=== PATIENT | female | born 1950 | race Caucasian/White ===

== ENCOUNTER 2019-12-20 14:34 | Inpatient (IN) ==
[2019-12-20 14:53] LABS: Basophils # 0.1 K/mm3 (0-0.2); Eosinophils # 0.1 K/mm3 (0.0-0.4); Monocytes # 0.9 K/mm3 (0.1-1.0)
[2019-12-20 14:58] LABS: Basophils % 0.4 % (0.1-2.0); Eosinophils % 0.6 % (0.1-12.0); Lymphocytes # 6.2 K/mm3 (0.7-4.5); Lymphocytes % 30.9 % (10-50); Mean Corpuscular HGB Conc 24.9 g/dL (31.8-35.4); Mean Corpuscular Volume 60.2 fl (81-99); Mean Platelet Volume 9.3 fl (7.4-10.4); Monocytes % 4.6 % (1.7-9.3); Neutrophils # 12.7 K/mm3 (1.8-7.8); Neutrophils % 63.5 % (37.0-80.0); Platelet Count 716 K/mm3 (142-424); Red Blood Count 3.54 M/mm3 (4.20-5.40); Red Cell Distribution Width 18.6 % (11.5-17.5)
[2019-12-20 15:00] LABS: Hematocrit 21.3 % (37.0-47.0); Hemoglobin 5.3 g/dL (12.2-16.2)
[2019-12-20 15:02] LABS: ABG Base Excess -11.3 mmol/L (-2.4-2.3); ABG HCO3 12.2 mmhg (22.0-26.0); ABG Oxygen Saturation 94 % (90-100); ABG PH 7.48 mmol/L (7.35-7.45); ABG PO2 68.7 mmhg (80-100); ABG TCO2 12.7 mmhg (23-27)
[2019-12-20 15:05] LABS: Allen's Test Acceptable; Oxygen ROOM AIR %
[2019-12-20 15:07] LABS: ABG PCO2 16.7 mmhg (35.0-45.0)
[2019-12-20 15:07] LABS: Alanine Aminotransferase 13 U/L (12-78); Albumin/Globulin Ratio 0.7 (1.1-1.8); Alkaline Phosphatase 128 U/L (46-116); Anion Gap 23.7 mEq/L (5-15); Aspartate Amino Transferase 9 U/L (15-37); Bilirubin,Total 0.6 mg/dL (0.2-1.0); Blood Urea Nitrogen 20 mg/dL (7-18); Calcium 8.5 mg/dL (8.5-10.1); Carbon Dioxide 13 mmol/L (21.0-32.0); Chloride 101 mmol/L (98-107); Globulin 4.2 gm/dl (1.3-3.2); Glucose 181 mg/dL (74-106); Sodium 134 mmol/L (136-145); Total Protein,Serum 7.2 gm/dL (6.4-8.2)
[2019-12-20 15:14] LABS: Lymphocytes % 31 % (10-50); Monocytes % 4 % (2-9); Neutrophils % 65 % (42-76); Total Cells Counted 100
[2019-12-20 15:15] LABS: Anisocytosis 3+; Hypochromasia 3+; Nucleated Red Blood Cells 5
[2019-12-20 15:16] LABS: Ovalocytes 1+
--- NOTE | 2019-12-20 16:45 | Emergency Department Note ---
ED Disposition Clinical Impression: Anemia Qualifiers: Anemia type: unspecified type Qualified Code(s): D64.9 - Anemia, unspecified Disposition: Admitted As Inpatient Condition on Discharge: Good - Critical Care Critical Care Time: No Attestation: On 12/20/19, the high probability of a clinically significant, sudden or life threatening deterioration of the following system(s) required my full and direct attention, intervention and personal management. The time I documented below is in addition to time spent performing reported procedures but includes the following listed in this critical care notation. Medical Decision Making - Carlito Inquiry Pt receiving controlled substance: No Carlito was queried for this patient: No Vital Signs: 12/20/19 14:35 12/20/19 15:00 12/20/19 15:29 Temperature 98.1 F Temperature Source Oral Pulse Rate 102 H Pulse Rate [Right Radial] 123 H 107 H Respiratory Rate 28 H TAR Vitals Timing Blood Pressure Blood Pressure [Right Arm] 104/62 L 141/53 H Blood Pressure Mean Blood Pressure Mean [Right Arm] 76 82 Blood Pressure Source [Right Arm] Automatic Cuff Blood Pressure Position [Right Arm] Sitting 02 Sat by Pulse Oximetry 96 100 Oxygen Delivery Method Room Air Oxygen Flow Rate (LPM) 12/20/19 15:38 12/20/19 15:48 12/20/19 16:19 Temperature Temperature Source Pulse Rate Pulse Rate [Right Radial] 105 H 103 H 101 H Respiratory Rate TAR Vitals Timing Blood Pressure Blood Pressure [Right Arm] 131/53 L 134/51 L 109/63 L Blood Pressure Mean Blood Pressure Mean [Right Arm] 79 78 78 Blood Pressure Source [Right Arm] Automatic Cuff Automatic Cuff Blood Pressure Position [Right Arm] Sitting Sitting 02 Sat by Pulse Oximetry 100 100 100 Oxygen Delivery Method Nasal Cannula Nasal Cannula Nasal Cannula Oxygen Flow Rate (LPM) 2 2 2 12/20/19 16:56 12/20/19 16:57 12/20/19 17:02 Temperature 98.0 F 98.2 F 98.1 F Temperature Source Oral Pulse Rate 103 H 105 H 102 H Pulse Rate [Right Radial] Respiratory Rate 20 20 18 TAR Vitals Timing Pre-Blood Vitals Start Vitals 5 Minute Blood Pressure 126/57 L 125/33 L 107/51 L Blood Pressure [Right Arm] Blood Pressure Mean 80 63 69 Blood Pressure Mean [Right Arm] Blood Pressure Source [Right Arm] Blood Pressure Position [Right Arm] 02 Sat by Pulse Oximetry 100 98 99 Oxygen Delivery Method Oxygen Flow Rate (LPM) 12/20/19 17:07 12/20/19 17:12 12/20/19 17:27 Temperature 98.2 F 98.3 F 98.4 F Temperature Source Oral Pulse Rate 102 H 100 H 103 H Pulse Rate [Right Radial] Respiratory Rate 16 18 103 H TAR Vitals Timing 10 Minute 15 Minute 30 Minute Blood Pressure 134/58 L 148/60 H 139/41 L Blood Pressure [Right Arm] Blood Pressure Mean 83 89 73 Blood Pressure Mean [Right Arm] Blood Pressure Source [Right Arm] Blood Pressure Position [Right Arm] 02 Sat by Pulse Oximetry 98 100 97 Oxygen Delivery Method Oxygen Flow Rate (LPM) 12/20/19 17:42 12/20/19 17:57 12/20/19 18:29 Temperature 98 F 98.1 F Temperature Source Pulse Rate 100 H 100 H Pulse Rate [Right Radial] 101 H Respiratory Rate 18 20 TAR Vitals Timing 45 Minute 60 Minute Blood Pressure 140/55 L 108/51 L Blood Pressure [Right Arm] 139/67 Blood Pressure Mean 83 70 Blood Pressure Mean [Right Arm] 91 Blood Pressure Source [Right Arm] Automatic Cuff Blood Pressure Position [Right Arm] Sitting 02 Sat by Pulse Oximetry 100 98 98 Oxygen Delivery Method Nasal Cannula Oxygen Flow Rate (LPM) 2 12/20/19 18:55 12/20/19 19:00 12/20/19 19:21 Temperature 98.4 F 98.1 F 97.8 F Temperature Source Oral Pulse Rate 97 H 102 H Pulse Rate [Right Radial] 92 H Respiratory Rate 97 H 18 20 TAR Vitals Timing Completion Vitals Blood Pressure 141/82 H 126/46 L Blood Pressure [Right Arm] 159/69 H Blood Pressure Mean 101 Blood Pressure Mean [Right Arm] 99 Blood Pressure Source [Right Arm] Automatic Cuff Blood Pressure Position [Right Arm] Supine 02 Sat by Pulse Oximetry 98 98 Oxygen Delivery Method Room Air Oxygen Flow Rate (LPM) - Lab Data Lab Results 12/20/19 14:39: Specimen Source Left radial, O2 % Room air, ABG pH 7.48 H, ABG pCO2 16.7 L, ABG pO2 68.7 L, ABG HCO3 12.2 L, ABG Total CO2 12.7 L, ABG O2 Saturation 94, ABG Base Excess -11.3 L, Boni Test Acceptable 12/20/19 14:40: WBC 20.0 H, Corrected WBC 19.0 H, RBC 3.54 L, Hgb 5.3 L*, Hct 21.3 L*, MCV 60.2 L, MCH 15.0 L, MCHC 24.9 L, RDW 18.6 H, Plt Count 716 H, MPV 9.3, Neut % (Auto) 63.5, Lymph % (Auto) 30.9, [place] % (Auto) 4.6, Eos % (Auto) 0.6, Baso % (Auto) 0.4, Neut # (Auto) 12.7 H, Lymph # (Auto) 6.2 H, [place] # (Auto) 0.9, Eos # (Auto) 0.1, Baso # (Auto) 0.1, Total Counted 100, Neutrophils % (Manual) 65, Lymphocytes % (Manual) 31, Monocytes % (Manual) 4, Nucleated RBCs 5, Platelet Estimate Marked increase, Hypochromasia 3+, Anisocytosis 3+, Microcytosis 3+, Ovalocytes 1+ 12/20/19 14:40: Sodium 134 L, Potassium 3.7, Chloride 101, Carbon Dioxide 13 L, Anion Gap 23.7 H, BUN 20 H, Creatinine 1.80 H, Estimated Creat Clear 53, Estimated GFR 28 L, Est GFR ( Amer) 34 L, Glucose 181 H, Calcium 8.5, Total Bilirubin 0.6, AST 9 L, ALT 13, Alkaline Phosphatase 128 H, Troponin I < 0.02, Total Protein 7.2, Albumin 3.0 L, Globulin 4.2 H, Albumin/Globulin Ratio 0.7 L 12/20/19 14:40: Lactate 5.9 H 12/20/19 14:50: Influenza Type A Ag Negative, Influenza Type B Ag Negative 12/20/19 15:06: Blood Type O Positive, Antibody Screen Negative, Crossmatch ([facility]) See Detail 12/20/19 16:12: Blood Type Confirm O Positive Result diagrams: 12/20/19 19:55 12/20/19 14:40 Orders (Tests/Meds): ED MEDICATIONS Generic Name Dose Route Start Last Admin Trade Name Freq PRN Reason Stop Dose Admin Sodium Chloride 250 mls @ 25 mls/hr 12/20/19 15:00 12/20/19 16:57 Sod Chlor 0.9% 250ml Bag IV 12/21/19 14:59 25 mls/hr .Q10H TAVON Administration Discontinued Medications Generic Name Dose Route Start Last Admin Trade Name Brooke PRN Reason Stop Dose Admin Albuterol/Ipratropium 3 ml 12/20/19 14:41 12/20/19 14:59 Duoneb 3ml Neb IH 12/20/19 14:42 3 ml ONCE ONE Administration Sodium Chloride 1,000 mls @ 999 mls/hr 12/20/19 15:00 12/20/19 14:46 Sod Chlor 0.9% 1000ml Bag IV 12/20/19 16:00 999 mls/hr .Q1H1M TAVON Administration Methylprednisolone Sodium Succinate 125 mg 12/20/19 14:41 12/20/19 14:46 Solu-Medrol 125mg/2ml Vial IV 12/20/19 14:42 125 mg ONCE ONE Administration ORDERS Category Date Time Status Red Blood Cells Stat BBK 12/20/19 15:06 Results Type and Screen Stat BBK 12/20/19 15:06 Results Consult to Oncology [CONS] Routine Cons 12/20/19 17:04 Active Occult Blood,Stool Stat Lab 12/20/19 15:00 Ordered Blood Culture Stat Micro 12/20/19 14:40 Received Medical Decision Narrative: She presented to the emergency department complaining of shortness of breath. She was seen approximately 2 weeks ago diagnosed with pneumonia at that time. Treatment was started but she has not gotten any better since then. On arrival here she was very tachypneic, but was able to be talked down, there was some component of anxiety that was playing a part of this. However she was still tachycardic and mildly tachypneic at baseline just without any respiratory distress at this point. Lab work was obtained and showed a severe anemia with a hemoglobin of 5.3. It also happened to show a white count of 20 and an increased platelets in the 700s. She had no evidence of infection, chest x-ray was unremarkable, and she did not have any infectious symptoms. She also states that she does not have any times of a GI bleed, has not had any dark or tarry stools, and has not had any vomiting. Concerned of a potential myelodysplastic disorder of some sort. She is stable at this time, was given 1 unit of PRBCs and given 1 L of IV fluids with significant improvement in her symptoms. I discussed with Dr. Mortensen who will admit the patient onto his service. Lab work was obtained per his request and the patient was admitted to the medical surgi doris unit. General Adult HPI - General Chief complaint: Shortness of Breath/Dyspnea Stated complaint: shortness of breath Time Seen by Provider: 12/20/19 14:35 Mode of Arrival: Wheelchair Limitations: Physical Limitations Description of Symptoms (Recalled from ER Triage Doc. by RN): pt presents to ed with c/o shortness of breath. pt states she was diagnosed with pneumonia last week and she has worsened greatly today. - History of Present Illness HPI narrative: She presented to the emergency department with respiratory distress and tachypnea. She is been feeling worse over the last few weeks, was recently diagnosed with pneumonia but never got any better despite treatment for her pneumonia. She advises that she does not have any past medical history is not currently take any medications. - Related Data Home Medications Medication Instructions Recorded Confirmed No Known Home Medications 12/20/19 12/20/19 Allergies Allergy/AdvReac Type Severity Reaction Status Date / Time No Known Allergies Allergy Verified 12/20/19 14:39 [facility] History - Hepatitis A Screen Drug use history?: No High risk sexual behaviors?: No History of sexually transmitted infection?: No Currently employed?: No Childcare worker?: No Do you have indoor plumbing?: Yes Do you have electricity?: Yes Attestation statement:: This patient has been screened for Hepatitis A risk factors. Medical History: Denies:: Diabetes Mellitus Type 1, Diabetes Mellitus Type 2 Laterality Cases: Bilateral: Tonsillectomy - Social History Alcohol Intake: never Occupational Status: retired Household Members: spouse ROS Obtained: Yes All systems reviewed & no additional complaints Physical Exam - General General appearance: alert, in no apparent distress - Respiratory Respiratory exam: Present: normal lung sounds bilaterally - Cardiovascular Cardiovascular exam: Present: tachycardia - Neurological Exam Neurological exam: Present: alert, oriented X3 - Skin Skin exam: Present: pallor
--- NOTE | 2019-12-20 20:21 | Electrocardiograph Report ---
APPROVED REPORT Exam: Resting ECG HR:112 bpm ECG Measurements Heart Rate 112 AXES AL 134 P 42 QRSd 72 QRS 1 QT 330 T133 QTc 450 <Conclusion> Sinus tachycardia with occasional premature ventricular complexes Low voltage QRS ST & T wave abnormality, consider lateral ischemia Abnormal ECG Electronically signed by : Migue Mortensen, 12/20/2019 20:21:04
[2019-12-20 20:29] LABS: Hemoglobin 6.1 g/dL (12.2-16.2)
[2019-12-20 20:30] LABS: Hematocrit 23.2 % (37.0-47.0)
--- NOTE | 2019-12-21 07:17 | Pharmacy Consult Notes ---
[facility] VTE Monitoring - Patient Demographics Admission date: 12/20/19 Report Date: 12/21/19 Time: 07:17 Allergies/Adverse Reactions: Patient Allergies No Known Allergies Allergy (Verified 12/20/19 14:39) Height: 1.7 m Weight: 105.857 kg Patient Problems: Current Active Problems Anemia (Acute) - VTE Risk Labs: VTE Related Lab Results Hgb 6.1 g/dL (12.2-16.2) L* 12/20/19 19:55 Hct 23.2 % (37.0-47.0) L* 12/20/19 19:55 Plt Count 716 K/mm3 (142-424) H 12/20/19 14:40 BUN 20 mg/dL (7-18) H 12/20/19 14:40 Creatinine 1.80 mg/dL (0.55-1.02) H 12/20/19 14:40 Estimated Creat Clear 53 mL/min (50-200) 12/20/19 14:40 Was VTE Risk Assessment Performed: Yes VTE Score: 3 VTE Risk Level: Low Risk - Prophylaxis VTE Prophylaxis Ordered?: Yes Types of VTE Prophylaxis: TEDS Knee High Location of Applied Device: Bilateral Lower Extremeties
[2019-12-21 07:43] LABS: Eosinophils % 0.1 % (0.1-12.0); Hematocrit 25.8 % (37.0-47.0); Lymphocytes # 1.2 K/mm3 (0.7-4.5); Lymphocytes % 10.5 % (10-50); Mean Corpuscular HGB Conc 27.4 g/dL (31.8-35.4); Mean Platelet Volume 8.6 fl (7.4-10.4); Monocytes # 0.3 K/mm3 (0.1-1.0); Monocytes % 2.3 % (1.7-9.3); Neutrophils # 10.1 K/mm3 (1.8-7.8); Platelet Count 417 K/mm3 (142-424); Red Blood Count 3.98 M/mm3 (4.20-5.40); Red Cell Distribution Width 22.5 % (11.5-17.5); White Blood Count 11.6 K/mm3 (4.8-10.8)
[2019-12-21 07:47] LABS: Hemoglobin 7.1 g/dL (12.2-16.2)
--- NOTE | 2019-12-21 08:55 | History & Physical Report ---
*Admission Date: 12/20/19 *Chief complaint: Weakness/shortness of air *History of present illness: 69-year-old white female who has enjoyed very good functional status, and in fact has not seen a physician since Dr. Dodson in 2012. 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 This symptom has become progressively worse. She denies any kinds of fevers, night sweats or weight loss although she has been on an intentional weight loss program over the past year and a half and has lost about 40 pounds. She notes that she has been on a diet of salads and grilled chicken breast to achieve this weight loss. She reports that her shortness of air with concomitant diminished activity levels have caused her to gain some weight back. She denies any kind of vaginal bleeding, denies any kind of stigmata of GI bleeding, and specifically denies melena, bright red blood per rectum, vomiting of coffee grounds or blood. She denies belly pain. She denies joint pain, rashes or other issues. In the emergency department work-up was notable for increasing creatinine as well as significant anemia with hemoglobin of 5, leukocytosis and thrombocytosis. Admitted to hospital for further work-up. [facility] History I have reviewed the patient's past medical history: Yes Medical History: Denies:: Cancer, Diabetes Mellitus Type 1, Diabetes Mellitus Type 2, MRSA *Have you ever received a pneumonia vaccine?: No *Have you received a flu vaccine this season?: No ("Just didn't get, I've never had the flu.") Laterality Cases: Bilateral: Tonsillectomy Other Surgeries: Yes: Cholecystectomy, Hysterectomy-Total Amputation: No Fractures: No - *Social History Educational Level: Attended High School Smoking Status: Never smoker Alcohol Intake: never *Occupational Status:: retired Housing: house Household Members: spouse *Travel in the last 8 weeks: None Family Hx:: Cancer, Heart Attack Review of Systems - Review of Systems Review of systems:: pertinent systems reviewed and negative unless documented below Meds Home Medications Medication Instructions Recorded Confirmed Type No Known Home Medications 12/20/19 12/20/19 History Allergies Allergy/AdvReac Type Severity Reaction Status Date / Time No Known Allergies Allergy Verified 12/20/19 14:39 Exam Vital signs and Labs for Last 24 Hours: Temp Pulse Resp BP Pulse Ox 97.7 F 84 18 152/62 H 96 12/21/19 08:00 12/21/19 08:00 12/21/19 08:00 12/21/19 08:00 12/21/19 08:00 Laboratory Results - last 24 hr 12/20/19 14:39: Specimen Source Left radial, O2 % Room air, ABG pH 7.48 H, ABG pCO2 16.7 L, ABG pO2 68.7 L, ABG HCO3 12.2 L, ABG Total CO2 12.7 L, ABG O2 Saturation 94, ABG Base Excess -11.3 L, Boni Test Acceptable 12/20/19 14:40: WBC 20.0 H, Corrected WBC 19.0 H, RBC 3.54 L, Hgb 5.3 L*, Hct 21.3 L*, MCV 60.2 L, MCH 15.0 L, MCHC 24.9 L, RDW 18.6 H, Plt Count 716 H, MPV 9.3, Neut % (Auto) 63.5, Lymph % (Auto) 30.9, [place] % (Auto) 4.6, Eos % (Auto) 0.6, Baso % (Auto) 0.4, Neut # (Auto) 12.7 H, Lymph # (Auto) 6.2 H, [place] # (Auto) 0.9, Eos # (Auto) 0.1, Baso # (Auto) 0.1, Total Counted 100, Neutrophils % (Manual) 65, Lymphocytes % (Manual) 31, Monocytes % (Manual) 4, Nucleated RBCs 5, Platelet Estimate Marked increase, Hypochromasia 3+, Anisocytosis 3+, Microcytosis 3+, Ovalocytes 1+ 12/20/19 14:40: Sodium 134 L, Potassium 3.7, Chloride 101, Carbon Dioxide 13 L, Anion Gap 23.7 H, BUN 20 H, Creatinine 1.80 H, Estimated Creat Clear 53, Estimated GFR 28 L, Est GFR ( Amer) 34 L, Glucose 181 H, Calcium 8.5, Total Bilirubin 0.6, AST 9 L, ALT 13, Alkaline Phosphatase 128 H, Troponin I < 0.02, Total Protein 7.2, Albumin 3.0 L, Globulin 4.2 H, Albumin/Globulin Ratio 0.7 L 12/20/19 14:40: Lactate 5.9 H 12/20/19 14:50: Influenza Type A Ag Negative, Influenza Type B Ag Negative 12/20/19 15:06: Blood Type O Positive, Antibody Screen Negative, Crossmatch ([facility]) See Detail 12/20/19 16:12: Blood Type Confirm O Positive 12/20/19 18:30: Troponin I < 0.02 12/20/19 18:30: Ferritin 11 12/20/19 18:56: Lactate 1.2 12/20/19 19:55: Troponin I < 0.02 12/20/19 19:55: Hgb 6.1 L*, Hct 23.2 L* 12/21/19 07:34: WBC 11.6 H D, RBC 3.98 L, Hgb 7.1 L*, Hct 25.8 L, MCV 65.0 L, MCH 17.8 L, MCHC 27.4 L, RDW 22.5 H, Plt Count 417 D, MPV 8.6, Neut % (Auto) 87.0 H, Lymph % (Auto) 10.5, [place] % (Auto) 2.3, Eos % (Auto) 0.1, Baso % (Auto) 0.0 L, Neut # (Auto) 10.1 H, Lymph # (Auto) 1.2, [place] # (Auto) 0.3, Eos # (Auto) 0.0, Baso # (Auto) 0.0 I & O for Last 24 hours: Intake & Output 12/18/19 12/19/19 12/20/19 12/21/19 11:59 11:59 11:59 11:59 Intake Total 1540 / 1540 Balance 1540 / 1540 Weight 233 lb 6 oz Narrative: Patient is pleasant, talkative, alert, oriented x3. Pale but no other skin rashes. No hepatosplenomegaly but morbid obesity limits her exam findings. Lungs are clear, heart rate regular. Neurologically intact. Oropharynx clear. No mucous membrane involvement. No jaundice or scleral icterus. Neurologically she is intact. Assessment and Plan (1) Acute kidney injury Current visit: Yes Status: Acute Category: Medical Code(s): N17.9 - Acute kidney failure, unspecified Uncertain about chronicity of disease given the paucity of lab work since 2013. Recheck kidney function after low-dose IV fluids. Check erythropoietin levels given the possibility of kidney disease causing anemia. (2) Anemia Current visit: Yes Status: Acute Qualifiers: Anemia type: unspecified type Qualified Code(s): D64.9 - Anemia, unspecified Category: Medical Code(s): D64.9 - Anemia, unspecified Doubt blood loss. Most likely diagnosis seems to be some type of myelodysplastic syndrome versus nutritional deficiency, B12, iron levels and folate levels pending. I have asked pathology to review her admission CBC slide. She has had 2 units of packed cells her hemoglobin is above 7 and she feels much more comfortable. Hematology consultation today. Possible discharge after this consultation.
[2019-12-21 11:37] LABS: Lymphocytes % 11 % (10-50); Monocytes % 2 % (2-9); Neutrophils % 87 % (42-76); Nucleated Red Blood Cells 2; Total Cells Counted 100
[2019-12-21 11:38] LABS: Anisocytosis 1+; Ovalocytes 1+
[2019-12-21 11:39] LABS: Hypochromasia 1+
[2019-12-21 13:29] LABS: Albumin Level 2.7 gm/dL (3.4-5.0); Albumin/Globulin Ratio 0.7 (1.1-1.8); Anion Gap 17.6 mEq/L (5-15); Bilirubin,Total 0.6 mg/dL (0.2-1.0); Calcium 8.6 mg/dL (8.5-10.1); Globulin 3.8 gm/dl (1.3-3.2); Total Protein,Serum 6.5 gm/dL (6.4-8.2)
--- NOTE | 2019-12-21 14:22 | Discharge Summary ---
General - General Admission date:: 12/20/19 Discharge date: 12/21/19 HPI HPI: 69-year-old white female who has enjoyed very good functional status, and in fact has not seen a physician since Dr. Dodson in 2012. 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 This symptom has become progressively worse. She denies any kinds of fevers, night sweats or weight loss although she has been on an intentional weight loss program over the past year and a half and has lost about 40 pounds. She notes that she has been on a diet of salads and grilled chicken breast to achieve this weight loss. She reports that her shortness of air with concomitant diminished activity levels have caused her to gain some weight back. She denies any kind of vaginal bleeding, denies any kind of stigmata of GI bleeding, and specifically denies melena, bright red blood per rectum, vomiting of coffee grounds or blood. She denies belly pain. She denies joint pain, rashes or other issues. In the emergency department work-up was notable for increasing creatinine as well as significant anemia with hemoglobin of 5, leukocytosis and thrombocytosis. Admitted to hospital for further work-up. Hospital Course Hospital Course: Patient was admitted, received a total of 2 units of packed cells with hemoglobin rise up to 7.1. Creatinine improved with IV fluids to 1.2 and patient felt much better, still continue to feel somewhat tired. We sent off a host of lab work for nutritional causes of anemia as well as erythropoietin levels and instructions for a pathology review of her slide to evaluate for myelodysplastic issues. Patient feels well enough to be discharged and we have arranged short-term follow-up with hematology/oncology as a new patient for her worrisome anemia, leukocytosis and thrombocytosis tomorrow at 10 AM. 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 Objective Vital signs: Temp Pulse Resp BP Pulse Ox 98.1 F 92 H 18 125/53 L 96 12/21/19 12:00 12/21/19 12:00 12/21/19 12:00 12/21/19 12:12/21/19 12:00 Narrative: Patient is pleasant, talkative, pale but improving over admission. Heart rate regular, vital signs unremarkable. Abdomen soft, no edema, clubbing, cyanosis. Neurologic exam intact. See admission exam from this morning for details. Results Labs on day of discharge: Labs from last 24 hours 12/21/19 12/21/19 12/20/19 07:34 07:34 19:55 WBC 11.6 H D Corrected WBC RBC 3.98 L Hgb 7.1 L* 6.1 L* Hct 25.8 L 23.2 L* MCV 65.0 L MCH 17.8 L MCHC 27.4 L RDW 22.5 H Plt Count 417 D MPV 8.6 Neut % (Auto) 87.0 H Lymph % (Auto) 10.5 [place] % (Auto) 2.3 Eos % (Auto) 0.1 Baso % (Auto) 0.0 L Neut # (Auto) 10.1 H Lymph # (Auto) 1.2 [place] # (Auto) 0.3 Eos # (Auto) 0.0 Baso # (Auto) 0.0 Total Counted 100 Neutrophils % (Manual) 87 H Lymphocytes % (Manual) 11 Monocytes % (Manual) 2 Nucleated RBCs 2 Platelet Estimate Marked decrease Hypochromasia 1+ Poikilocytosis 1+ Anisocytosis 1+ Microcytosis 2+ Ovalocytes 1+ Specimen Source O2 % ABG pH ABG pCO2 ABG pO2 ABG HCO3 ABG Total CO2 ABG O2 Saturation ABG Base Excess Boni Test Sodium 135 L Potassium 4.6 D Chloride 105 Carbon Dioxide 17 L D Anion Gap 17.6 H BUN 22 H Creatinine 1.25 H D Estimated Creat Clear 71 Estimated GFR 42 L Est GFR ( Amer) 51 L D Glucose 174 H Lactate Calcium 8.6 Ferritin Total Bilirubin 0.6 AST 6 L D ALT 11 L Alkaline Phosphatase 109 Troponin I Total Protein 6.5 Albumin 2.7 L Globulin 3.8 H Albumin/Globulin Ratio 0.7 L Stool Occult Blood Influenza Type A Ag Influenza Type B Ag Blood Type Blood Type Confirm Antibody Screen Crossmatch ([facility]) 12/20/19 12/20/19 12/20/19 19:55 18:56 18:30 WBC Corrected WBC RBC Hgb Hct MCV MCH MCHC RDW Plt Count MPV Neut % (Auto) Lymph % (Auto) [place] % (Auto) Eos % (Auto) Baso % (Auto) Neut # (Auto) Lymph # (Auto) [place] # (Auto) Eos # (Auto) Baso # (Auto) Total Counted Neutrophils % (Manual) Lymphocytes % (Manual) Monocytes % (Manual) Nucleated RBCs Platelet Estimate Hypochromasia Poikilocytosis Anisocytosis Microcytosis Ovalocytes Specimen Source O2 % ABG pH ABG pCO2 ABG pO2 ABG HCO3 ABG Total CO2 ABG O2 Saturation ABG Base Excess Boni Test Sodium Potassium Chloride Carbon Dioxide Anion Gap BUN Creatinine Estimated Creat Clear Estimated GFR Est GFR ( Amer) Glucose Lactate 1.2 Calcium Ferritin 11 Total Bilirubin AST ALT Alkaline Phosphatase Troponin I < 0.02 Total Protein Albumin Globulin Albumin/Globulin Ratio Stool Occult Blood Influenza Type A Ag Influenza Type B Ag Blood Type Blood Type Confirm Antibody Screen Crossmatch ([facility]) 12/20/19 12/20/19 12/20/19 18:30 16:12 15:06 WBC Corrected WBC RBC Hgb Hct MCV MCH MCHC RDW Plt Count MPV Neut % (Auto) Lymph % (Auto) [place] % (Auto) Eos % (Auto) Baso % (Auto) Neut # (Auto) Lymph # (Auto) [place] # (Auto) Eos # (Auto) Baso # (Auto) Total Counted Neutrophils % (Manual) Lymphocytes % (Manual) Monocytes % (Manual) Nucleated RBCs Platelet Estimate Hypochromasia Poikilocytosis Anisocytosis Microcytosis Ovalocytes Specimen Source O2 % ABG pH ABG pCO2 ABG pO2 ABG HCO3 ABG Total CO2 ABG O2 Saturation ABG Base Excess Boni Test Sodium Potassium Chloride Carbon Dioxide Anion Gap BUN Creatinine Estimated Creat Clear Estimated GFR Est GFR ( Amer) Glucose Lactate Calcium Ferritin Total Bilirubin AST ALT Alkaline Phosphatase Troponin I < 0.02 Total Protein Albumin Globulin Albumin/Globulin Ratio Stool Occult Blood Influenza Type A Ag Influenza Type B Ag Blood Type O Positive Blood Type Confirm O Positive Antibody Screen Negative Crossmatch ([facility]) See Detail 12/20/19 12/20/19 12/20/19 14:50 14:40 14:40 WBC Corrected WBC RBC Hgb Hct MCV MCH MCHC RDW Plt Count MPV Neut % (Auto) Lymph % (Auto) [place] % (Auto) Eos % (Auto) Baso % (Auto) Neut # (Auto) Lymph # (Auto) [place] # (Auto) Eos # (Auto) Baso # (Auto) Total Counted Neutrophils % (Manual) Lymphocytes % (Manual) Monocytes % (Manual) Nucleated RBCs Platelet Estimate Hypochromasia Poikilocytosis Anisocytosis Microcytosis Ovalocytes Specimen Source O2 % ABG pH ABG pCO2 ABG pO2 ABG HCO3 ABG Total CO2 ABG O2 Saturation ABG Base Excess Boni Test Sodium 134 L Potassium 3.7 Chloride 101 Carbon Dioxide 13 L Anion Gap 23.7 H BUN 20 H Creatinine 1.80 H Estimated Creat Clear 53 Estimated GFR 28 L Est GFR ( Amer) 34 L Glucose 181 H Lactate 5.9 H Calcium 8.5 Ferritin Total Bilirubin 0.6 AST 9 L ALT 13 Alkaline Phosphatase 128 H Troponin I < 0.02 Total Protein 7.2 Albumin 3.0 L Globulin 4.2 H Albumin/Globulin Ratio 0.7 L Stool Occult Blood Influenza Type A Ag Negative Influenza Type B Ag Negative Blood Type Blood Type Confirm Antibody Screen Crossmatch ([facility]) 12/20/19 12/20/19 12/20/19 14:40 14:39 10:07 WBC 20.0 H Corrected WBC 19.0 H RBC 3.54 L Hgb 5.3 L* Hct 21.3 L* MCV 60.2 L MCH 15.0 L MCHC 24.9 L RDW 18.6 H Plt Count 716 H MPV 9.3 Neut % (Auto) 63.5 Lymph % (Auto) 30.9 [place] % (Auto) 4.6 Eos % (Auto) 0.6 Baso % (Auto) 0.4 Neut # (Auto) 12.7 H Lymph # (Auto) 6.2 H [place] # (Auto) 0.9 Eos # (Auto) 0.1 Baso # (Auto) 0.1 Total Counted 100 Neutrophils % (Manual) 65 Lymphocytes % (Manual) 31 Monocytes % (Manual) 4 Nucleated RBCs 5 Platelet Estimate Marked increase Hypochromasia 3+ Poikilocytosis Anisocytosis 3+ Microcytosis 3+ Ovalocytes 1+ Specimen Source Left radial O2 % Room air ABG pH 7.48 H ABG pCO2 16.7 L ABG pO2 68.7 L ABG HCO3 12.2 L ABG Total CO2 12.7 L ABG O2 Saturation 94 ABG Base Excess -11.3 L Boni Test Acceptable Sodium Potassium Chloride Carbon Dioxide Anion Gap BUN Creatinine Estimated Creat Clear Estimated GFR Est GFR ( Amer) Glucose Lactate Calcium Ferritin Total Bilirubin AST ALT Alkaline Phosphatase Troponin I Total Protein Albumin Globulin Albumin/Globulin Ratio Stool Occult Blood Negative Influenza Type A Ag Influenza Type B Ag Blood Type Blood Type Confirm Antibody Screen Crossmatch ([facility]) DS: Diagnosis - Discharge Diagnosis (1) Acute kidney injury Status: Resolved (2) Anemia Status: Acute Discharge Plan - Patient Discharge Instructions ACTIVITY: Continue current activity DIET: continue same diet Patient Instructions: Anemia - Follow up Plan Follow up with: Nilda New MD [Staff Physician] - 12/22/19 9:30 am Migue Mortensen MD [Primary Care Provider] - 12/24/19 9:30 am Disposition: Home, Self-Half-Way Medications: Home Medications Medication Instructions Recorded Confirmed Type No Known Home Medications 12/20/19 12/20/19 History Prescriptions/Medication Reconciliation: Continued No Known Home Medications - Problem Reconciliation Problems Reviewed?: Yes
[2019-12-22 15:52] LABS: Folate 3.6 ng/mL (>3.0)
== END 2019-12-21 14:49 | disposition home or self-care (01) | DRG 812 ==
LOC: ER 14:34 → 2ND 14:34 → OBSVTOIN 19:32
PROVIDERS: ADMIT Internal Medicine Adolescent Medicine; ATTEND Internal Medicine Adolescent Medicine
CPT/HCPCS: 36415; 36430; 71010; 71045; 80053; 82272; 82607; 82668; 82728; 82746; 82803; 83540; 83550; 83605; 84484; 85007; 85014; 85018; 85025; 86850; 87040; 87275; 87276; 93005; 96365; 96375; 99285; G0328; P9016

== ENCOUNTER 2019-12-22 10:57 | Outpatient (CLI) | payer MEDICARE, SELFPAY ==
[2019-12-22 11:34] LABS: Basophils % 0.1 % (0.1-2.0); Eosinophils % 0.1 % (0.1-12.0); Lymphocytes # 3.1 K/mm3 (0.7-4.5); Lymphocytes % 14.9 % (10-50); Mean Corpuscular HGB Conc 27.1 g/dL (31.8-35.4); Mean Corpuscular Hemoglobin 17.6 pg (27.0-31.2); Mean Corpuscular Volume 64.8 fl (81-99); Mean Platelet Volume 8.9 fl (7.4-10.4); Monocytes # 0.8 K/mm3 (0.1-1.0); Monocytes % 3.7 % (1.7-9.3); Neutrophils # 16.6 K/mm3 (1.8-7.8); Neutrophils % 81.1 % (37.0-80.0); Platelet Count 437 K/mm3 (142-424); Reticulocyte % (Auto) 2.7 % (0.9-3.2)
[2019-12-22 11:38] LABS: White Blood Count 20.4 K/mm3 (4.8-10.8)
[2019-12-22 11:39] LABS: Hematocrit 25.9 % (37.0-47.0)
[2019-12-22 11:40] LABS: Hemoglobin 7.1 g/dL (12.2-16.2)
[2019-12-22 11:41] LABS: MANUAL DIFFERENTIAL MANUAL DIFFERENTIAL (MANUAL DIFF)
[2019-12-22 11:47] LABS: Acanthocytes 3+; Anisocytosis 2+; Lymphocytes % 23 % (10-50); Macrocytosis 2+; Monocytes % 2 % (2-9); Neutrophils % 75 % (42-76); Platelet Estimate Normal; Poikilocytosis 3+; Stomatocytes 1+; Total Cells Counted 100
[2019-12-22 11:48] LABS: Hypochromasia 3+; Schistocytes 1+
[2019-12-22 12:20] LABS: Alanine Aminotransferase 14 U/L (12-78); Albumin Level 2.9 gm/dL (3.4-5.0); Albumin/Globulin Ratio 0.8 (1.1-1.8); Alkaline Phosphatase 105 U/L (46-116); Anion Gap 15.9 mEq/L (5-15); Aspartate Amino Transferase 11 U/L (15-37); Bilirubin,Total 0.5 mg/dL (0.2-1.0); Blood Urea Nitrogen 33 mg/dL (7-18); Calcium 8.8 mg/dL (8.5-10.1); Carbon Dioxide 19 mmol/L (21.0-32.0); Chloride 106 mmol/L (98-107); Creatinine,Serum 1.39 mg/dL (0.55-1.02); Estimated Glomerular Filt Rate 38 ml/min (>60); Ferritin 16 ng/mL (8-388); GFR (African American) 45 ML/MIN (>60); Globulin 3.8 gm/dl (1.3-3.2); Glucose 119 mg/dL (74-106); Lactate Dehydrogenase 177 U/L (82-234); Potassium 3.9 mmoL/L (3.5-5.1); Sodium 137 mmol/L (136-145); Total Protein,Serum 6.7 gm/dL (6.4-8.2)
--- NOTE | 2019-12-22 13:04 | PC.NURSE ---
1230 - PT BROUGHT OVER BY [facility] FROM LAB AFTER HAVING BLOOD DRAWN PER DR RUSH. WAITING ON HGB/HCT RESULTS TO MAKE SURE BLOOD TRANSFUSION NEEDED. HGB 7.1, HCT 25.9. BLOOD BANK NOTIFIED US THAT BLOOD FOR PT WAS NOT IN STOCK AT THIS FACILITY BUT WAS EN ROUTE FROM [facility] BLOOD FRAKES. INFORMED PT THAT MAY BE COUPLE HRS BEFORE BLOOD READY TO BE TRANSFUSED AND DECIDED TO RETURN TOMORROW FOR ACTUAL TRANSFUSION. DR RUSH NOTIFIED AND OKAY TO TRANSFUSE TOMORROW.
[2019-12-23 08:43] LABS: Iron 13 ug/dL (27-139); UIBC 307 ug/dL (118-369)
[2019-12-23 17:00] LABS: Haptoglobin 362 mg/dL (37-355); Iron Saturation 4 % (15-55)
== END 2019-12-22 12:45 | disposition home or self-care (01) ==
LOC: LAB 10:59 → INF 11:03
PROVIDERS: Visit Provider Internal Medicine Medical Oncology
DX: D64.9 Anemia, unspecified (principal)
CPT/HCPCS: 36415; 80053; 82728; 83010; 83540; 83550; 83615; 85007; 85025; 85044

== ENCOUNTER 2019-12-23 08:40 | Outpatient (CLI) | payer MEDICARE, SELFPAY ==
[2019-12-23] VITALS (20 sets, daily range): BP systolic 110–149; BP diastolic 57–84; PULSE 80–89; RESP 18–20; TEMP 35.9–36.6; O2SAT 100; BMI 34.7
--- NOTE | 2019-12-23 09:23 | PC.NURSE ---
0920 - STARTED TRANSFUSION AT 100 ML/HR AT THIS TIME.
--- NOTE | 2019-12-23 09:54 | PC.NURSE ---
0950 - INCREASED RATE TO 150 ML/HR AT THIS TIME.
--- NOTE | 2019-12-23 10:45 | PC.NURSE ---
1020 - INCREASED RATE TO 200 ML/HR AT THIS TIME.
--- NOTE | 2019-12-23 11:11 | PC.NURSE ---
INCREASED RATE TO 250 ML/HR AT 1050.
--- NOTE | 2019-12-23 11:52 | PC.NURSE ---
1140 - TRANSFUSION STARTED AT 100 ML/HR AT THIS TIME.
--- NOTE | 2019-12-23 12:15 | PC.NURSE ---
1210 - INCREASED RATE TO 150 ML/HR AT THIS TIME.
--- NOTE | 2019-12-23 12:43 | PC.NURSE ---
1240 - INCREASED RATE TO 200 ML/HR AT THIS TIME.
--- NOTE | 2019-12-23 13:30 | PC.NURSE ---
INCREASED RATE TO 250 ML/HR AT 1310.
[2019-12-23 14:43] LABS: Hematocrit 34.7 % (37.0-47.0)
--- NOTE | 2019-12-23 14:52 | PC.NURSE ---
1427 - BLOOD DRAWN FROM IV AT THIS TIME FOR 1 HR POST HGB/HCT THEN IV REMOVED.
== END 2019-12-23 14:40 | disposition home or self-care (01) ==
LOC: INF 08:46
PROVIDERS: Visit Provider Internal Medicine Medical Oncology
DX: D64.9 Anemia, unspecified (principal); D50.9 Iron deficiency anemia, unspecified; T45.4X5A Adverse effect of iron and its compounds, initial encounter
CPT/HCPCS: 36430; 85014; 85018; 96365; J1439; P9016

== ENCOUNTER → 2019-12-28 13:34 | Outpatient (CLI) | payer MEDICARE, SELFPAY ==
[2019-12-28 14:04] LABS: Hemoglobin 10.9 g/dL (12.2-16.2)
== END ==
PROVIDERS: Visit Provider Surgery
DX: D64.9 Anemia, unspecified (principal)
CPT/HCPCS: 36415; 85014; 85018

== ENCOUNTER 2019-12-30 13:49 | Outpatient (CLI) | payer MEDICARE, SELFPAY ==
[2019-12-30 14:15] VITALS: BP 161/68; PULSE 81; RESP 18
[2019-12-30 14:55] VITALS: BP 157/101; PULSE 90; RESP 18
== END 2019-12-30 14:55 | disposition home or self-care (01) ==
LOC: INF 15:27
PROVIDERS: Visit Provider Internal Medicine Medical Oncology
DX: D50.9 Iron deficiency anemia, unspecified (principal); T45.4X5A Adverse effect of iron and its compounds, initial encounter
CPT/HCPCS: 96365; J1439

== ENCOUNTER → 2020-01-02 10:59 | Outpatient (CLI) | payer MEDICARE, SELFPAY | LOC: RT 11:00 | PROVIDERS: PCP Internal Medicine Adolescent Medicine; Visit Provider Internal Medicine Adolescent Medicine | DX: R06.09 Other forms of dyspnea (principal) | CPT/HCPCS: 94060; 94640; 94726; 94729 ==

== ENCOUNTER → 2020-02-06 13:37 | Outpatient (CLI) | payer MEDICARE, SELFPAY ==
[2020-02-06 13:59] LABS: Blood Urea Nitrogen 17 mg/dl (7-17); Estimated Glomerular Filt Rate 55 ml/min (>60); GFR (African American) 67 ML/MIN (>60)
== END ==
PROVIDERS: PCP Internal Medicine Adolescent Medicine; Visit Provider Internal Medicine Adolescent Medicine
DX: Z01.818 Encounter for other preprocedural examination (principal)
CPT/HCPCS: 36415; 82565; 84520

== ENCOUNTER → 2020-02-08 09:46 | Outpatient (CLI) | payer MEDICARE, SELFPAY ==
--- NOTE | 2020-02-08 09:50 | CT_ITS ---
PROCEDURE: CT ABDOMEN WO CON CLINICAL HISTORY: WGT LOSS, ABD PAIN COMPARISON: No exams were available for comparison TECHNIQUE: Axial images obtained with sagittal and coronal reformats. All CT scans at the facility use one or more dose reduction, viz: automated exposure control, ma/kV adjustment per patient size (including targeted exams where dose is matched to indication, i.e. head), or iterative reconstruction technique. FINDINGS: There is a 5 mm subpleural nodule in the right middle lobe region 4 mm subpleural nodules present in the lingular area and 1 also in the left lower lobe anteriorly and 1 in the mid aspect of the left. There is a medium-sized hiatal hernia. Post cholecystectomy change. The liver, spleen, and right adrenal gland are unremarkable. Left adrenal gland is enlarged maintaining an adrenal form shape with a density of near 6 Hounsfield units which may be due to adenomatous involvement. The pancreas and kidneys have an unremarkable appearance. No renal or ureteral calculi. No intestinal obstruction or free air. Prior appendectomy. There are postsurgical changes of the anterior abdominal wall with a small umbilical hernia containing fat. There are scattered diverticula of the colon but no evidence of diverticulitis. There are degenerative changes of the lumbar spine. The pelvis is not included in the exam. IMPRESSION: 1. No acute abdominal or pelvic findings. 2. There are scattered subpleural nodular opacities in the lower lung zones as described above. These are nonspecific. Dedicated chest CT may provide further evaluation of the remaining chest in this patient with history of weight loss. 3. Colonic diverticulosis. No evidence of diverticulitis Dictated by: Boni Trujillo MD 02/09/2020 13:04 Electronically signed by Boni Trujillo MD in [place] 02/09/2020 13:04
== END ==
LOC: RAD 09:47
PROVIDERS: PCP Internal Medicine Adolescent Medicine; Visit Provider Internal Medicine Adolescent Medicine
DX: R10.84 Generalized abdominal pain (principal); R63.4 Abnormal weight loss
CPT/HCPCS: 74150

== ENCOUNTER → 2020-03-22 14:47 | Outpatient (CLI) | payer MEDICARE, OTHER, SELFPAY ==
[2020-03-22 15:14] LABS: Basophils # 0.1 K/mm3 (0-0.2); Eosinophils # 0.4 K/mm3 (0.0-0.4); Eosinophils % 4.3 % (0.1-12.0); Hematocrit 42.7 % (37.0-47.0); Hemoglobin 13.4 g/dL (12.2-16.2); Lymphocytes # 3.9 K/mm3 (0.7-4.5); Lymphocytes % 41.6 % (10-50); Mean Corpuscular HGB Conc 31.4 g/dL (31.8-35.4); Mean Corpuscular Hemoglobin 27.4 pg (27.0-31.2); Mean Corpuscular Volume 87.4 fl (81-99); Mean Platelet Volume 7.6 fl (7.4-10.4); Monocytes # 0.4 K/mm3 (0.1-1.0); Monocytes % 3.8 % (1.7-9.3); Neutrophils # 4.6 K/mm3 (1.8-7.8); Neutrophils % 49.2 % (37.0-80.0); Platelet Count 459 K/mm3 (142-424); Red Blood Count 4.89 M/mm3 (4.20-5.40); Red Cell Distribution Width 15.4 % (11.5-17.5); White Blood Count 9.4 K/mm3 (4.8-10.8)
[2020-03-22 18:06] LABS: Ferritin 20.1 ng/ml (11.1-264)
[2020-03-24 04:34] LABS: Iron 55 ug/dL (27-139); UIBC 208 ug/dL (118-369)
[2020-03-24 08:14] LABS: Iron Saturation 21 % (15-55)
== END ==
PROVIDERS: Visit Provider Internal Medicine Medical Oncology
DX: D50.9 Iron deficiency anemia, unspecified (principal)
CPT/HCPCS: 36415; 82728; 83540; 83550; 85025

== ENCOUNTER → 2020-03-26 08:08 | Outpatient (CLI) | payer MEDICARE, OTHER, SELFPAY ==
--- NOTE | 2020-03-26 08:16 | MM_ITS ---
PROCEDURE: MM DIG SCREENING MAMM BI W/CAD Digital Breast Tomosynthesis Included CLINICAL INDICATION: SCREENING There is a history of breast cancer in the patient's sister diagnosed at age 45. COMPARISON: No exams were available for comparison TECHNIQUE: Standard CC and MLO images and 3D Tomosynthesis was obtained. R2 CAD reviewed. FINDINGS: The breasts are composed primarily of fat with scattered fibroglandular densities seen throughout each breast. A couple of benign-appearing microcalcifications in each breast. There is faint arterial calcification in each breast there is a tiny benign-appearing nodular density central portion left breast. There are few benign-appearing microcalcifications in each breast. Ilir images were reviewed. There is no suspicious lesion and no suspicious microcalcifications. IMPRESSION: Fibrofatty parenchyma with no suspicious lesions seen BI-RAD Category: 2 Benign Finding(s) FOLLOW-UP: 1YR 1 Year Follow-up (A letter has been sent to the patient regarding results of the study.) Dictated by: Dr. Pantera Quintana MD 03/26/2020 13:[address] Pantera Quintana MD in [facility] 03/26/2020 13:49
--- NOTE | 2020-03-26 08:16 | XR_ITS ---
PROCEDURE: XR DEXA AXIAL SKELETON CLINICAL HISTORY: POST MENOPAUSAL COMPARISON: No exams were available for comparison FINDINGS: Right femoral neck density is 0.73 grams/centimeters sq with a T-score -1.1. Left femoral neck density is 0.794 grams/centimeters sq with a T-score of -0 point. L1-L4 density is 1.182 grams/centimeters sq with a T-score of 1.2 IMPRESSION: Osteopenia with moderate fracture risk. Treatment advised. Suggest follow-up exam in 2 years Dictated by: Boni Trujillo MD 03/26/2020 16:41 Electronically signed by Boni Trujillo MD in [facility] 03/26/2020 16:41
== END ==
PROVIDERS: PCP Internal Medicine Adolescent Medicine; Visit Provider Internal Medicine Adolescent Medicine
DX: Z12.31 Encounter for screening mammogram for malignant neoplasm of breast (principal); Z78.0 Asymptomatic menopausal state
CPT/HCPCS: 77063; 77067; 77080

== ENCOUNTER 2020-05-30 09:00 | Outpatient (CLI) | payer MEDICARE, OTHER, SELFPAY ==
[2020-05-30 10:10] LABS: PHA INR Fingerstick 2.8 (0.9-1.1)
== END 2020-05-30 10:12 | disposition home or self-care (01) ==
PROVIDERS: PCP Internal Medicine Adolescent Medicine; Visit Provider Internal Medicine Adolescent Medicine
DX: Z51.81 Encounter for therapeutic drug level monitoring (principal); Z79.01 Long term (current) use of anticoagulants
CPT/HCPCS: 85610; 99211; G0463

== ENCOUNTER 2020-06-13 09:28 | Outpatient (CLI) | payer MEDICARE, OTHER, SELFPAY ==
[2020-06-13 10:37] LABS: PHA INR Fingerstick 3.4 (0.9-1.1)
== END 2020-06-13 10:38 | disposition home or self-care (01) ==
LOC: ACC 09:29
PROVIDERS: PCP Internal Medicine Adolescent Medicine; Visit Provider Internal Medicine Adolescent Medicine
DX: Z51.81 Encounter for therapeutic drug level monitoring (principal); Z79.01 Long term (current) use of anticoagulants
CPT/HCPCS: 85610; 99211; G0463

== ENCOUNTER 2020-06-27 09:36 | Outpatient (CLI) | payer MEDICARE, OTHER, SELFPAY ==
[2020-06-27 12:06] LABS: Basophils # 0.1 K/mm3 (0-0.2); Basophils % 0.6 % (0.1-2.0); Eosinophils # 0.3 K/mm3 (0.0-0.4); Hemoglobin 14.2 g/dL (12.2-16.2); Lymphocytes # 3.9 K/mm3 (0.7-4.5); Lymphocytes % 38.9 % (10-50); Mean Corpuscular HGB Conc 33.8 g/dL (31.8-35.4); Mean Corpuscular Hemoglobin 29.4 pg (27.0-31.2); Mean Corpuscular Volume 87.1 fl (81-99); Mean Platelet Volume 7.6 fl (7.4-10.4); Monocytes # 0.4 K/mm3 (0.1-1.0); Monocytes % 3.6 % (1.7-9.3); Neutrophils # 5.4 K/mm3 (1.8-7.8); Neutrophils % 53.9 % (37.0-80.0); Platelet Count 410 K/mm3 (142-424); Red Blood Count 4.83 M/mm3 (4.20-5.40); Red Cell Distribution Width 15.1 % (11.5-17.5); White Blood Count 9.9 K/mm3 (4.8-10.8)
[2020-06-27 12:28] LABS: Alanine Aminotransferase 17 U/L (12-78); Albumin/Globulin Ratio 1.3 (1.1-1.8); Alkaline Phosphatase 168 U/L (38-126); Anion Gap 15.2 mEq/L (5-15); Aspartate Amino Transferase 20 U/L (14-36); Bilirubin,Total 0.3 mg/dl (0.2-1.3); Blood Urea Nitrogen 22 mg/dl (7-17); Calcium 9.3 mg/dl (8.4-10.2); Carbon Dioxide 25 mmol/L (22.0-30.0); Chloride 105 mmol/L (98-107); Chol/HDL Ratio 5.6 (1-3.5); Cholesterol 284 mg/dl (140-200); Estimated Glomerular Filt Rate 49 ml/min (>60); GFR (African American) 59 ML/MIN (>60); Globulin 3.1 g/dL (1.3-3.2); Glucose 151 mg/dl (74-100); HDL Cholesterol 51 mg/dl (40-60); Potassium 4.2 mmoL/L (3.5-5.1); Sodium 141 mmol/L (136-145); Total Protein,Serum 7.1 g/dl (6.3-8.2); Triglycerides 328 mg/dl (30-150); VLDL Cholesterol 66 mg/dL (0-40)
[2020-06-27 12:45] LABS: T4 (Thyroxine) 12.3 ug/dl (5.53-11.0)
[2020-06-27 12:58] LABS: Thyroid Stimulating Hormone 1.94 uIU/mL (0.465-4.68)
[2020-06-27 13:37] LABS: Direct LDL Cholesterol 181.07 mg/dL (100-129)
[2020-06-27 14:07] LABS: PHA INR Fingerstick 2.5 (0.9-1.1)
[2020-06-28 14:48] LABS: Hemoglobin A1C 7.1 % (4.0-6.0)
== END 2020-06-27 14:27 | disposition home or self-care (01) ==
PROVIDERS: Physician Assistant; PCP Emergency Medicine; Visit Provider Internal Medicine Adolescent Medicine
DX: I50.9 Heart failure, unspecified (principal); K92.2 Gastrointestinal hemorrhage, unspecified; N18.9 Chronic kidney disease, unspecified; R05 Cough; Z86.718 Personal history of other venous thrombosis and embolism; D64.9 Anemia, unspecified; Z86.2 Personal history of diseases of the blood and blood-forming organs and certain disorders involving the immune mechanism; Z79.01 Long term (current) use of anticoagulants
CPT/HCPCS: 36415; 80053; 80061; 83036; 84436; 84443; 85025; 85610; 99211; G0463

== ENCOUNTER 2020-07-25 09:27 | Outpatient (CLI) | payer MEDICARE, OTHER, SELFPAY ==
[2020-07-25 10:45] LABS: PHA INR Fingerstick 2.9 (0.9-1.1)
== END 2020-07-25 10:49 | disposition home or self-care (01) ==
LOC: ACC 09:29
PROVIDERS: PCP Internal Medicine Adolescent Medicine; Visit Provider Internal Medicine Adolescent Medicine
DX: Z79.01 Long term (current) use of anticoagulants (principal)
CPT/HCPCS: 85610; 99211; G0463

== ENCOUNTER 2020-08-27 09:21 | Outpatient (CLI) | payer MEDICARE, OTHER, SELFPAY | END 2020-08-27 11:23 | disposition home or self-care (01) | LOC: ACC 09:23 | PROVIDERS: PCP Internal Medicine Adolescent Medicine; Visit Provider Internal Medicine Adolescent Medicine | DX: Z51.81 Encounter for therapeutic drug level monitoring (principal); Z79.01 Long term (current) use of anticoagulants | CPT/HCPCS: 85610; 99211; G0463 ==

== ENCOUNTER 2020-09-17 09:27 | Outpatient (CLI) | payer MEDICARE, OTHER, SELFPAY ==
[2020-09-17 11:38] LABS: PHA INR Fingerstick 1.9 (0.9-1.1)
== END 2020-09-17 11:48 | disposition home or self-care (01) ==
LOC: ACC 09:28
PROVIDERS: PCP Emergency Medicine; Visit Provider Internal Medicine Adolescent Medicine
DX: Z51.81 Encounter for therapeutic drug level monitoring (principal); Z79.01 Long term (current) use of anticoagulants
CPT/HCPCS: 85610; 99211; G0463

== ENCOUNTER 2020-10-15 09:21 | Outpatient (CLI) | payer MEDICARE, OTHER, SELFPAY | END 2020-10-15 13:27 | disposition home or self-care (01) | LOC: ACC 09:23 | PROVIDERS: PCP Physician Assistant; Visit Provider Internal Medicine Adolescent Medicine | DX: Z51.81 Encounter for therapeutic drug level monitoring (principal); Z79.01 Long term (current) use of anticoagulants | CPT/HCPCS: 85610; 99211; G0463 ==

== ENCOUNTER 2020-11-12 09:27 | Outpatient (CLI) | payer MEDICARE, OTHER, SELFPAY | END 2020-11-12 13:54 | disposition home or self-care (01) | PROVIDERS: PCP Internal Medicine Adolescent Medicine; Visit Provider Physician Assistant | DX: Z51.81 Encounter for therapeutic drug level monitoring (principal); Z79.01 Long term (current) use of anticoagulants | CPT/HCPCS: 85610; 99211; G0463 ==

== ENCOUNTER 2020-12-24 09:30 | Outpatient (CLI) | payer MEDICARE, SELFPAY ==
[2020-12-24 12:24] LABS: PHA INR Fingerstick 2.3 (0.9-1.1)
== END 2020-12-24 14:41 | disposition home or self-care (01) ==
PROVIDERS: PCP Physician Assistant; Visit Provider Physician Assistant
DX: Z51.81 Encounter for therapeutic drug level monitoring (principal); Z79.01 Long term (current) use of anticoagulants
CPT/HCPCS: 85610; 99211; G0463

== ENCOUNTER → 2021-01-29 13:37 | Outpatient (CLI) | payer MEDICARE, SELFPAY ==
[2021-01-29 13:50] LABS: Basophils % 0.4 % (0.1-2.0); Eosinophils # 0.4 K/mm3 (0.0-0.4); Eosinophils % 4.3 % (0.1-12.0); Hematocrit 40.5 % (37.0-47.0); Lymphocytes # 2.5 K/mm3 (0.7-4.5); Lymphocytes % 26.5 % (10-50); Mean Corpuscular HGB Conc 32.2 g/dL (31.8-35.4); Mean Corpuscular Hemoglobin 28.5 pg (27.0-31.2); Mean Corpuscular Volume 88.4 fl (81-99); Mean Platelet Volume 7.9 fl (7.4-10.4); Monocytes # 0.4 K/mm3 (0.1-1.0); Monocytes % 4.3 % (1.7-9.3); Neutrophils % 64.4 % (37.0-80.0); Platelet Count 418 K/mm3 (142-424); Red Blood Count 4.57 M/mm3 (4.20-5.40); Red Cell Distribution Width 14.2 % (11.5-17.5); White Blood Count 9.3 K/mm3 (4.8-10.8)
[2021-01-29 13:51] LABS: Chloride 109 mmol/L (98-107); Potassium 5.1 mmoL/L (3.5-5.1); Sodium 140 mmol/L (136-145)
[2021-01-29 13:53] LABS: Alanine Aminotransferase 17 U/L (12-78); Albumin/Globulin Ratio 1.3 (1.1-1.8); Alkaline Phosphatase 128 U/L (38-126); Anion Gap 13.1 mEq/L (5-15); Aspartate Amino Transferase 22 U/L (14-36); Bilirubin,Total 0.4 mg/dl (0.2-1.3); Blood Urea Nitrogen 28 mg/dl (7-17); Carbon Dioxide 23 mmol/L (22.0-30.0); Estimated Glomerular Filt Rate 44 ml/min (>60); GFR (African American) 54 ML/MIN (>60); Globulin 3.2 g/dL (1.3-3.2); Total Protein,Serum 7.2 g/dl (6.3-8.2)
[2021-01-29 13:54] LABS: Calcium 9.5 mg/dl (8.4-10.2); Chol/HDL Ratio 4.1 (1-3.5); Cholesterol 226 mg/dl (140-200); Glucose 146 mg/dl (74-100); HDL Cholesterol 55 mg/dl (40-60); Triglycerides 222 mg/dl (30-150); VLDL Cholesterol 44 mg/dL (0-40)
[2021-01-29 13:56] LABS: Hemoglobin A1C 7.4 % (4.0-6.0)
[2021-01-29 14:10] LABS: Free T4 (Free Thyroxine) 1.29 ng/dl (0.78-2.19)
[2021-01-29 14:24] LABS: Thyroid Stimulating Hormone 2.02 uIU/mL (0.465-4.68)
== END ==
PROVIDERS: Visit Provider Physician Assistant
DX: D64.9 Anemia, unspecified (principal); E11.9 Type 2 diabetes mellitus without complications; I50.9 Heart failure, unspecified; N18.9 Chronic kidney disease, unspecified
CPT/HCPCS: 80053; 80061; 82043; 83036; 84439; 84443; 85025

== ENCOUNTER 2021-02-04 09:23 | Outpatient (CLI) | payer MEDICARE, SELFPAY ==
[2021-02-04 14:17] LABS: PHA INR Fingerstick 2.2 (0.9-1.1)
== END 2021-02-04 14:20 | disposition home or self-care (01) ==
PROVIDERS: PCP Emergency Medicine; Visit Provider Physician Assistant
DX: Z51.81 Encounter for therapeutic drug level monitoring (principal); Z79.01 Long term (current) use of anticoagulants
CPT/HCPCS: 85610; 99211; G0463

== ENCOUNTER 2021-02-19 11:36 | Outpatient (CLI) | payer MEDICARE, SELFPAY | END 2021-02-19 12:23 | disposition home or self-care (01) | LOC: ACC 11:38 | PROVIDERS: PCP Emergency Medicine; Visit Provider Physician Assistant | DX: Z51.81 Encounter for therapeutic drug level monitoring (principal); Z79.01 Long term (current) use of anticoagulants | CPT/HCPCS: 85610; 99211; G0463 ==

== ENCOUNTER 2021-02-22 12:56 | Outpatient (CLI) | payer MEDICARE, SELFPAY ==
[2021-02-22 14:09] LABS: PHA INR Fingerstick 2.1 (0.9-1.1)
== END 2021-02-22 14:12 | disposition home or self-care (01) ==
LOC: ACC 12:57
PROVIDERS: PCP Emergency Medicine; Visit Provider Physician Assistant
DX: Z51.81 Encounter for therapeutic drug level monitoring (principal); Z79.01 Long term (current) use of anticoagulants
CPT/HCPCS: 85610; 99211; G0463

== ENCOUNTER → 2021-02-25 08:32 | Outpatient (CLI) | payer MEDICARE, SELFPAY ==
[2021-02-25 09:52] LABS: Coronavirus 19 IgG Antibody Negative (Negative); Coronavirus 19 IgM Antibody Negative (Negative)
== END ==
PROVIDERS: Visit Provider Ophthalmology
DX: Z01.812 Encounter for preprocedural laboratory examination (principal); Z11.52 Encounter for screening for COVID-19; H25.12 Age-related nuclear cataract, left eye
CPT/HCPCS: 36415; 86328

== ENCOUNTER 2021-02-26 06:43 | Day surgery (SDC) | payer MEDICARE, SELFPAY ==
[2021-02-19 14:00] VITALS: BMI 36.1
[2021-02-26 07:11] VITALS: BP 131/69; PULSE 86; RESP 18; TEMP 36.4; O2SAT 94
[2021-02-26 07:28] LABS: POC Glucose,Bedside 148 (70-110)
[2021-02-26 08:27] VITALS: BP 142/72; PULSE 74; RESP 16; O2SAT 95
[2021-02-26 08:32] VITALS: BP 150/67; PULSE 74; RESP 16; O2SAT 98
[2021-02-26 08:37] VITALS: BP 136/67; PULSE 74; RESP 16; O2SAT 100
[2021-02-26 08:42] VITALS: BP 135/67; PULSE 71; RESP 16; O2SAT 100
[2021-02-26 08:45] VITALS: BP 131/73; PULSE 77; RESP 18; TEMP 36.4; O2SAT 99
== END 2021-02-26 08:57 | disposition home or self-care (01) ==
LOC: OR 06:44
PROVIDERS: PCP Emergency Medicine; Visit Provider Ophthalmology
DX: H26.9 Unspecified cataract (principal); E11.9 Type 2 diabetes mellitus without complications; Z90.49 Acquired absence of other specified parts of digestive tract; Z90.710 Acquired absence of both cervix and uterus; Z79.84 Long term (current) use of oral hypoglycemic drugs; Z79.82 Long term (current) use of aspirin; Z79.01 Long term (current) use of anticoagulants; Z79.899 Other long term (current) drug therapy; N18.9 Chronic kidney disease, unspecified; I50.9 Heart failure, unspecified
CPT/HCPCS: 66984; 82962; V2632

== ENCOUNTER 2021-03-19 11:08 | Outpatient (CLI) | payer MEDICARE, SELFPAY ==
[2021-03-19 12:02] LABS: PHA INR Fingerstick 2.4 (0.9-1.1)
== END 2021-03-19 12:03 | disposition home or self-care (01) ==
LOC: ACC 11:08
PROVIDERS: PCP Physician Assistant; Visit Provider Physician Assistant
DX: Z79.01 Long term (current) use of anticoagulants (principal)
CPT/HCPCS: 85610; 99211; G0463

== ENCOUNTER → 2021-03-23 09:05 | Outpatient (CLI) | payer MEDICARE, SELFPAY | PROVIDERS: Visit Provider Ophthalmology | DX: Z01.812 Encounter for preprocedural laboratory examination (principal); Z20.822 Contact with and (suspected) exposure to COVID-19; H25.11 Age-related nuclear cataract, right eye | CPT/HCPCS: U0003 ==

== ENCOUNTER 2021-03-25 11:32 | Outpatient (CLI) | payer MEDICARE, SELFPAY ==
[2021-03-25 12:02] LABS: PHA INR Fingerstick 2.1 (0.9-1.1)
== END 2021-03-25 12:03 | disposition home or self-care (01) ==
LOC: ACC 11:33
PROVIDERS: PCP Physician Assistant; Visit Provider Physician Assistant
DX: Z51.81 Encounter for therapeutic drug level monitoring (principal); Z79.01 Long term (current) use of anticoagulants
CPT/HCPCS: 85610; 99211; G0463

== ENCOUNTER 2021-03-26 09:13 | Day surgery (SDC) | payer MEDICARE, SELFPAY ==
[2021-03-20 12:56] VITALS: BMI 35.9
[2021-03-26 09:34] VITALS: BP 142/68; PULSE 84; RESP 20; TEMP 36.1; O2SAT 95
[2021-03-26 09:49] LABS: POC Glucose,Bedside 141 (70-110)
[2021-03-26 11:13] VITALS: BP 144/77; PULSE 81; RESP 16; O2SAT 97
[2021-03-26 11:18] VITALS: BP 142/69; PULSE 81; RESP 16; O2SAT 97
[2021-03-26 11:23] VITALS: BP 141/69; PULSE 81; RESP 16; O2SAT 97
[2021-03-26 11:28] VITALS: BP 134/66; PULSE 85; RESP 16; O2SAT 100
[2021-03-26 11:31] VITALS: BP 146/87; PULSE 79; RESP 16; TEMP 36.3; O2SAT 98
== END 2021-03-26 11:37 | disposition home or self-care (01) ==
LOC: OR 09:14
PROVIDERS: PCP Physician Assistant; Visit Provider Ophthalmology
DX: H25.813 Combined forms of age-related cataract, bilateral (principal); E11.9 Type 2 diabetes mellitus without complications; Z79.84 Long term (current) use of oral hypoglycemic drugs; Z90.49 Acquired absence of other specified parts of digestive tract; Z90.710 Acquired absence of both cervix and uterus; Z79.01 Long term (current) use of anticoagulants; Z79.82 Long term (current) use of aspirin; Z79.899 Other long term (current) drug therapy; I11.0 Hypertensive heart disease with heart failure; I50.9 Heart failure, unspecified; M85.80 Other specified disorders of bone density and structure, unspecified site; N18.9 Chronic kidney disease, unspecified
CPT/HCPCS: 66984; 82962; V2632

== ENCOUNTER → 2021-04-02 07:34 | Outpatient (CLI) | payer MEDICARE, SELFPAY ==
--- NOTE | 2021-04-02 07:35 | MM_ITS ---
PROCEDURE INFORMATION: Exam: MG Screening 3D Mammography Exam date and time: 04/02/2021 7:35 AM Age: 70 years old Clinical indication: Encounter for screening mammogram for malignant neoplasm of breast; Additional info: Breast cancer screening TECHNIQUE: Imaging protocol: Screening tomosynthesis and 2D mammography including computer-aided detection (CAD) when performed. COMPARISON: MG MM DIG SCREENING MAMM BI W/CAD 03/26/2020 8:41 AM FINDINGS: MAMMOGRAPHY: Breast composition: There are scattered areas of fibroglandular density. Mass: No new suspicious masses. Architectural distortion: No suspicious distortion. Calcifications: No suspicious calcifications. Asymmetric density: None. Skin thickening: None. Axillary adenopathy: None. IMPRESSION: No mammographic evidence of malignancy. Annual screening is recommended unless otherwise clinically indicated. ASSESSMENT: BI-RADS Category 1: Negative
== END ==
PROVIDERS: PCP Physician Assistant; Visit Provider Physician Assistant
DX: Z12.31 Encounter for screening mammogram for malignant neoplasm of breast (principal)
CPT/HCPCS: 77063; 77067

== ENCOUNTER 2021-05-06 11:21 | Outpatient (CLI) | payer MEDICARE, SELFPAY ==
[2021-05-06 12:01] LABS: PHA INR Fingerstick 2.6 (0.9-1.1)
== END 2021-05-06 12:03 | disposition home or self-care (01) ==
LOC: ACC 11:23
PROVIDERS: PCP Emergency Medicine; Visit Provider Physician Assistant
DX: Z51.81 Encounter for therapeutic drug level monitoring (principal); Z79.01 Long term (current) use of anticoagulants
CPT/HCPCS: 85610; 99211; G0463

== ENCOUNTER 2021-06-19 11:45 | Outpatient (CLI) | payer MEDICARE, SELFPAY ==
[2021-06-19 15:27] LABS: PHA INR Fingerstick 2.6 (0.9-1.1)
== END 2021-06-19 15:32 | disposition home or self-care (01) ==
LOC: ACC 11:47
PROVIDERS: PCP Emergency Medicine; Visit Provider Physician Assistant
DX: Z51.81 Encounter for therapeutic drug level monitoring (principal); Z79.01 Long term (current) use of anticoagulants
CPT/HCPCS: 85610; 99211; G0463

== ENCOUNTER → 2021-07-31 10:59 | Outpatient (CLI) | payer MEDICARE, SELFPAY ==
[2021-07-31 12:38] LABS: Prothrombin Time 25.6 seconds (10.1-12.5)
[2021-07-31 13:34] LABS: INR 2.31 (0.9-1.1)
[2021-07-31 14:15] LABS: Creatinine,Urine Random 122 mg/dL (Not Estab.)
[2021-07-31 14:17] LABS: Microalbumin/Creatinine Ratio 9.8
[2021-07-31 16:01] LABS: Albumin Level 4.1 g/dl (3.5-5.0); Anion Gap 19.4 mEq/L (5-15); Blood Urea Nitrogen 22 mg/dl (7-17); Calcium 9.4 mg/dl (8.4-10.2); Carbon Dioxide 20 mmol/L (22.0-30.0); Chloride 107 mmol/L (98-107); Estimated Glomerular Filt Rate 37 ml/min (>60); GFR (African American) 45 ML/MIN (>60); Glucose 69 mg/dl (74-100); Phosphorous 3.5 mg/dl (2.5-4.5); Potassium 5.4 mmoL/L (3.5-5.1); Sodium 141 mmol/L (136-145)
[2021-08-05 18:27] LABS: C-Telopeptide Serum 420 pg/mL (.)
[2021-08-06 16:18] LABS: Tandem-R Ostase 29.3 ug/L (.)
== END ==
PROVIDERS: Internal Medicine Nephrology; Visit Provider Physician Assistant
DX: Z51.81 Encounter for therapeutic drug level monitoring (principal); Z79.01 Long term (current) use of anticoagulants; R80.9 Proteinuria, unspecified
CPT/HCPCS: 36415; 80069; 82043; 82523; 82570; 84080; 85610

== ENCOUNTER 2021-09-11 10:53 | Outpatient (CLI) | payer MEDICARE, SELFPAY ==
[2021-09-11 16:22] LABS: PHA INR Fingerstick 3.2 (0.9-1.1)
== END 2021-09-11 16:28 | disposition home or self-care (01) ==
LOC: ACC 10:55
PROVIDERS: PCP Physician Assistant; Visit Provider Physician Assistant
DX: Z51.81 Encounter for therapeutic drug level monitoring (principal); Z79.01 Long term (current) use of anticoagulants
CPT/HCPCS: 85610; 99211; G0463

== ENCOUNTER → 2021-09-30 13:46 | Outpatient (POV) | payer MEDICARE, SELFPAY ==
[2021-09-30 16:31] LABS: Anion Gap 13.9 mEq/L (5-15); Blood Urea Nitrogen 17 mg/dl (7-17); Calcium 9.4 mg/dl (8.4-10.2); Carbon Dioxide 23 mmol/L (22.0-30.0); Chloride 108 mmol/L (98-107); Estimated Glomerular Filt Rate 44 ml/min (>60); GFR (African American) 54 ML/MIN (>60); Glucose 73 mg/dl (74-100); Phosphorous 4.2 mg/dl (2.5-4.5); Potassium 4.9 mmoL/L (3.5-5.1); Sodium 140 mmol/L (136-145)
== END ==
PROVIDERS: Visit Provider Internal Medicine Nephrology
DX: N18.31 Chronic kidney disease, stage 3a (principal)
CPT/HCPCS: 80069

== ENCOUNTER 2021-10-09 10:48 | Outpatient (CLI) | payer MEDICARE, SELFPAY ==
[2021-10-09 16:29] LABS: PHA INR Fingerstick 3.2 (0.9-1.1)
== END 2021-10-09 16:32 | disposition home or self-care (01) ==
LOC: ACC 10:49
PROVIDERS: PCP Physician Assistant; Visit Provider Physician Assistant
DX: Z51.81 Encounter for therapeutic drug level monitoring (principal); Z79.01 Long term (current) use of anticoagulants
CPT/HCPCS: 85610; 99211; G0463

== ENCOUNTER 2021-11-06 10:55 | Outpatient (CLI) | payer MEDICARE, SELFPAY ==
[2021-11-06 14:53] LABS: PHA INR Fingerstick 2.1 (0.9-1.1)
== END 2021-11-06 15:01 | disposition home or self-care (01) ==
LOC: ACC 10:56
PROVIDERS: PCP Emergency Medicine; Visit Provider Physician Assistant
DX: Z51.81 Encounter for therapeutic drug level monitoring (principal); Z79.01 Long term (current) use of anticoagulants
CPT/HCPCS: 85610; 99211; G0463

== ENCOUNTER 2021-12-18 11:01 | Outpatient (CLI) | payer MEDICARE, SELFPAY ==
[2021-12-18 15:05] LABS: PHA INR Fingerstick 2.8 (0.9-1.1)
== END 2021-12-18 15:26 | disposition home or self-care (01) ==
LOC: ACC 11:02
PROVIDERS: PCP Physician Assistant; Visit Provider Physician Assistant
DX: Z51.81 Encounter for therapeutic drug level monitoring (principal); Z79.01 Long term (current) use of anticoagulants
CPT/HCPCS: 85610; 99211; G0463

== ENCOUNTER 2022-01-15 10:44 | Outpatient (CLI) | payer MEDICARE, SELFPAY ==
[2022-01-15 12:38] LABS: PHA INR Fingerstick 2.2 (0.9-1.1)
== END 2022-01-15 12:39 | disposition home or self-care (01) ==
LOC: ACC 10:44
PROVIDERS: PCP Emergency Medicine; Visit Provider Physician Assistant
DX: Z51.81 Encounter for therapeutic drug level monitoring (principal); Z79.01 Long term (current) use of anticoagulants
CPT/HCPCS: 85610; 99211; G0463

== ENCOUNTER → 2022-02-18 18:44 | Outpatient (CLI) | payer MEDICARE, SELFPAY ==
[2022-02-18 14:05] LABS: Basophils % 0.6 % (0.1-2.0); Eosinophils # 0.2 K/mm3 (0.0-0.4); Eosinophils % 3.5 % (0.1-12.0); Hemoglobin 12.6 g/dL (12.2-16.2); Lymphocytes % 44.2 % (10-50); Mean Corpuscular HGB Conc 31.6 g/dL (31.8-35.4); Mean Corpuscular Hemoglobin 27.1 pg (27.0-31.2); Mean Corpuscular Volume 85.9 fl (81-99); Mean Platelet Volume 8.5 fl (7.4-10.4); Monocytes # 0.3 K/mm3 (0.1-1.0); Monocytes % 4.9 % (1.7-9.3); Neutrophils # 3.2 K/mm3 (1.8-7.8); Neutrophils % 46.8 % (37.0-80.0); Platelet Count 471 K/mm3 (142-424); Red Blood Count 4.65 M/mm3 (4.20-5.40); Red Cell Distribution Width 15.8 % (11.5-17.5); White Blood Count 6.8 K/mm3 (4.8-10.8)
[2022-02-18 14:07] LABS: Chloride 113 mmol/L (98-107); Potassium 4.4 mmoL/L (3.5-5.1); Sodium 140 mmol/L (136-145)
[2022-02-18 14:09] LABS: Alanine Aminotransferase 17 U/L (12-78); Aspartate Amino Transferase 21 U/L (14-36); Blood Urea Nitrogen 15 mg/dl (7-17); Estimated Glomerular Filt Rate 40 ml/min (>60); GFR (African American) 49 ML/MIN (>60)
[2022-02-18 14:10] LABS: Albumin Level 3.4 g/dl (3.5-5.0); Albumin/Globulin Ratio 1.3 (1.1-1.8); Alkaline Phosphatase 143 U/L (38-126); Bilirubin,Total 0.4 mg/dl (0.2-1.3); Calcium 8.3 mg/dl (8.4-10.2); Carbon Dioxide 20 mmol/L (22.0-30.0); Chol/HDL Ratio 4.4 (1-3.5); Cholesterol 168 mg/dl (140-200); Globulin 2.7 g/dL (1.3-3.2); Glucose 141 mg/dl (74-100); HDL Cholesterol 38 mg/dl (40-60); Hemoglobin A1C 7.1 % (4.0-6.0); Total Protein,Serum 6.1 g/dl (6.3-8.2); Triglycerides 171 mg/dl (30-150); VLDL Cholesterol 34 mg/dL (0-40)
[2022-02-18 14:11] LABS: Anion Gap 11.4 mEq/L (5-15)
[2022-02-18 14:21] LABS: Direct LDL Cholesterol 107.18 mg/dL (100-129)
[2022-02-18 14:41] LABS: Thyroid Stimulating Hormone 1.57 uIU/mL (0.465-4.68)
== END ==
PROVIDERS: Visit Provider Physician Assistant
DX: E11.9 Type 2 diabetes mellitus without complications (principal); I10 Essential (primary) hypertension; M85.80 Other specified disorders of bone density and structure, unspecified site; Z79.84 Long term (current) use of oral hypoglycemic drugs
CPT/HCPCS: 80053; 80061; 82306; 83036; 84443; 85025

== ENCOUNTER 2022-02-26 10:13 | Outpatient (CLI) | payer MEDICARE, SELFPAY ==
[2022-02-26 10:38] LABS: PHA INR Fingerstick 2.3 (0.9-1.1)
== END 2022-02-26 10:43 | disposition home or self-care (01) ==
LOC: ACC 10:15
PROVIDERS: PCP Physician Assistant; Visit Provider Physician Assistant
DX: Z51.81 Encounter for therapeutic drug level monitoring (principal); Z79.01 Long term (current) use of anticoagulants
CPT/HCPCS: 85610; 99211; G0463

== ENCOUNTER 2022-04-10 10:48 | Outpatient (CLI) | payer MEDICARE, SELFPAY ==
[2022-04-10 11:21] LABS: PHA INR Fingerstick 2.1 (0.9-1.1)
== END 2022-04-10 11:23 | disposition home or self-care (01) ==
LOC: ACC 10:49
PROVIDERS: PCP Physician Assistant; Visit Provider Physician Assistant
DX: Z51.81 Encounter for therapeutic drug level monitoring (principal); Z79.01 Long term (current) use of anticoagulants
CPT/HCPCS: 85610; 99211; G0463

== ENCOUNTER 2022-05-22 10:55 | Outpatient (CLI) | payer MEDICARE, SELFPAY ==
[2022-05-22 11:21] LABS: PHA INR Fingerstick 2.6 (0.9-1.1)
== END 2022-05-22 11:23 | disposition home or self-care (01) ==
LOC: ACC 10:56
PROVIDERS: PCP Physician Assistant; Visit Provider Physician Assistant
DX: Z51.81 Encounter for therapeutic drug level monitoring (principal); Z79.01 Long term (current) use of anticoagulants
CPT/HCPCS: 85610; 99211; G0463

== ENCOUNTER → 2022-06-16 08:45 | Outpatient (CLI) | payer MEDICARE, SELFPAY ==
--- NOTE | 2022-06-16 08:48 | XR_ITS ---
FINAL REPORT TECHNIQUE: Bone mineral density was calculated of the lumbar spine and right hip. CLINICAL HISTORY: post menopausal FINDINGS: DEXA BONE DENSITY AXIAL SKELETON Using L1-4, the bone mineral density of the spine is 1.153 g/cm2, corresponding to T-score of 1.0. Using the right hip, the bone mineral density of the femoral neck is 0.817 g/cm2, corresponding to a T-score of -1.0. NOTE: T-score: Standard deviation compared with peak bone mass of young adult mean. *Following the recommendations of the International Society of Bone densitometry, classification of hip BMD is based on the lower of two T-scores; total hip or femoral neck. IMPRESSION: Normal bone mineral density of the lumbar spine and right hip. Reviewed, Interpreted and Dictated by Morgan Smith III, MD Transcribed by Kimberly Mcclain Authenticated and [facility]
== END ==
PROVIDERS: PCP Physician Assistant; Visit Provider Internal Medicine Nephrology
DX: M81.0 Age-related osteoporosis without current pathological fracture (principal)
CPT/HCPCS: 77080

== ENCOUNTER 2022-07-03 10:58 | Outpatient (CLI) | payer MEDICARE, SELFPAY ==
[2022-07-03 15:23] LABS: PHA INR Fingerstick 1.8 (0.9-1.1)
== END 2022-07-03 15:25 | disposition home or self-care (01) ==
LOC: ACC 11:01
PROVIDERS: PCP Physician Assistant; Visit Provider Physician Assistant
DX: Z51.81 Encounter for therapeutic drug level monitoring (principal); Z79.01 Long term (current) use of anticoagulants
CPT/HCPCS: 85610; 99211; G0463

== ENCOUNTER → 2022-07-22 10:37 | Outpatient (CLI) | payer MEDICARE, SELFPAY ==
[2022-07-22 11:31] LABS: Basophils # 0.1 K/mm3 (0-0.2); Basophils % 0.9 % (0.1-2.0); Eosinophils # 0.2 K/mm3 (0.0-0.4); Eosinophils % 2.5 % (0.1-12.0); Hematocrit 41.1 % (37.0-47.0); Hemoglobin 12.6 g/dL (12.2-16.2); Lymphocytes # 3.9 K/mm3 (0.7-4.5); Mean Corpuscular HGB Conc 30.6 g/dL (31.8-35.4); Mean Corpuscular Hemoglobin 25.1 pg (27.0-31.2); Mean Corpuscular Volume 82.3 fl (81-99); Mean Platelet Volume 7.6 fl (7.4-10.4); Monocytes # 0.4 K/mm3 (0.1-1.0); Monocytes % 4.7 % (1.7-9.3); Neutrophils # 3.6 K/mm3 (1.8-7.8); Neutrophils % 43.8 % (37.0-80.0); Platelet Count 492 K/mm3 (142-424); Red Cell Distribution Width 15.8 % (11.5-17.5); White Blood Count 8.2 K/mm3 (4.8-10.8)
[2022-07-22 11:58] LABS: Creatinine,Urine Random 111 mg/dL (Not Estab.)
[2022-07-22 12:32] LABS: Chloride 109 mmol/L (98-107)
[2022-07-22 12:34] LABS: Albumin Level 3.8 g/dl (3.5-5.0); Anion Gap 13.2 mEq/L (5-15); Blood Urea Nitrogen 14 mg/dl (7-17); Calcium 9.2 mg/dl (8.4-10.2); Carbon Dioxide 23 mmol/L (22.0-30.0); Estimated Glomerular Filt Rate 44 ml/min (>60); GFR (African American) 53 ML/MIN (>60); Glucose 126 mg/dl (74-100); Phosphorous 3.2 mg/dl (2.5-4.5); Potassium 4.2 mmoL/L (3.5-5.1); Sodium 141 mmol/L (136-145)
[2022-07-22 12:50] LABS: 25-OH Vitamin D, Total 40.8 ng/mL (30-100)
[2022-07-26 02:11] LABS: Tandem-R Ostase 30.7 ug/L (.)
[2022-07-27 14:58] LABS: C-Telopeptide Serum 500 pg/mL (.)
== END ==
PROVIDERS: PCP Physician Assistant; Visit Provider Internal Medicine Nephrology
DX: N18.31 Chronic kidney disease, stage 3a (principal); M85.89 Other specified disorders of bone density and structure, multiple sites
CPT/HCPCS: 36415; 80069; 82043; 82306; 82523; 82570; 84080; 85025

== ENCOUNTER → 2022-08-04 12:08 | Outpatient (POV) | payer MEDICARE, SELFPAY | PROVIDERS: Visit Provider Internal Medicine Nephrology | DX: Z00.00 Encounter for general adult medical examination without abnormal findings (principal) ==

== ENCOUNTER 2022-08-06 11:17 | Outpatient (CLI) | payer MEDICARE, SELFPAY ==
[2022-08-06 15:44] LABS: PHA INR Fingerstick 3.8 (0.9-1.1)
== END 2022-08-06 15:54 ==
LOC: ACC 11:18
PROVIDERS: PCP Physician Assistant; Visit Provider Physician Assistant
DX: Z51.81 Encounter for therapeutic drug level monitoring (principal); Z79.01 Long term (current) use of anticoagulants
CPT/HCPCS: 85610; 99211; G0463

== ENCOUNTER 2022-08-27 11:01 | Outpatient (CLI) | payer MEDICARE, SELFPAY ==
[2022-08-27 13:40] LABS: PHA INR Fingerstick 2.5 (0.9-1.1)
== END 2022-08-27 14:06 ==
LOC: ACC 11:02
PROVIDERS: PCP Physician Assistant; Visit Provider Physician Assistant
DX: Z51.81 Encounter for therapeutic drug level monitoring (principal); Z79.01 Long term (current) use of anticoagulants
CPT/HCPCS: 85610; 99211; G0463

== ENCOUNTER 2022-10-08 10:24 | Outpatient (CLI) | payer MEDICARE, SELFPAY ==
[2022-10-08 14:56] LABS: PHA INR Fingerstick 1.8 (0.9-1.1)
== END 2022-10-08 15:02 ==
LOC: ACC 10:25
PROVIDERS: PCP Physician Assistant; Visit Provider Physician Assistant
DX: Z51.81 Encounter for therapeutic drug level monitoring (principal); Z79.01 Long term (current) use of anticoagulants
CPT/HCPCS: 85610; 99211; G0463

== ENCOUNTER 2022-11-05 10:25 | Outpatient (CLI) | payer MEDICARE, SELFPAY ==
[2022-11-05 15:28] LABS: PHA INR Fingerstick 2.7 (0.9-1.1)
== END 2022-11-05 16:22 ==
LOC: ACC 10:26
PROVIDERS: PCP Physician Assistant; Visit Provider Internal Medicine Adolescent Medicine
DX: Z51.81 Encounter for therapeutic drug level monitoring (principal); Z79.01 Long term (current) use of anticoagulants
CPT/HCPCS: 85610; 99211; G0463

== ENCOUNTER → 2022-12-17 10:23 | Outpatient (CLI) | payer MEDICARE, SELFPAY ==
[2022-12-17 12:29] LABS: PHA INR Fingerstick 2.3 (0.9-1.1)
== END ==
PROVIDERS: PCP Physician Assistant; Visit Provider Physician Assistant
DX: Z51.81 Encounter for therapeutic drug level monitoring (principal); Z79.01 Long term (current) use of anticoagulants
CPT/HCPCS: 85610; 99211; G0463

== ENCOUNTER 2023-01-28 10:15 | Outpatient (CLI) | payer MEDICARE, SELFPAY ==
[2023-01-28 10:36] LABS: PHA INR Fingerstick 2.8 (0.9-1.1)
== END 2023-01-28 10:38 ==
LOC: ACC 10:16
PROVIDERS: PCP Physician Assistant; Visit Provider Physician Assistant
DX: Z51.81 Encounter for therapeutic drug level monitoring (principal); Z79.01 Long term (current) use of anticoagulants
CPT/HCPCS: 85610; 99211; G0463

== ENCOUNTER 2023-03-11 10:32 | Outpatient (CLI) | payer MEDICARE, SELFPAY ==
[2023-03-11 12:30] LABS: PHA INR Fingerstick 3.3 (0.9-1.1)
== END 2023-03-11 14:07 ==
LOC: ACC 10:33
PROVIDERS: PCP Physician Assistant; Visit Provider Physician Assistant
DX: Z51.81 Encounter for therapeutic drug level monitoring (principal); Z79.01 Long term (current) use of anticoagulants
CPT/HCPCS: 85610; 99211; G0463

== ENCOUNTER 2023-04-09 10:13 | Outpatient (CLI) | payer MEDICARE, SELFPAY ==
[2023-04-09 10:54] LABS: PHA INR Fingerstick 2.5 (0.9-1.1)
== END 2023-04-09 10:57 ==
LOC: ACC 10:14
PROVIDERS: PCP Physician Assistant; Visit Provider Physician Assistant
DX: Z51.81 Encounter for therapeutic drug level monitoring (principal); Z79.01 Long term (current) use of anticoagulants
CPT/HCPCS: 85610; 99211; G0463

== ENCOUNTER → 2023-05-14 13:53 | Outpatient (CLI) | payer MEDICARE, SELFPAY ==
[2023-05-14 12:42] LABS: Alanine Aminotransferase 18 U/L (12-78); Albumin Level 3.8 g/dl (3.5-5.0); Albumin/Globulin Ratio 1.3 (1.1-1.8); Alkaline Phosphatase 134 U/L (38-126); Anion Gap 17.2 mEq/L (5-15); Aspartate Amino Transferase 22 U/L (14-36); Basophils % 0.4 % (0.1-2.0); Bilirubin,Total 0.4 mg/dl (0.2-1.3); Blood Urea Nitrogen 21 mg/dl (7-17); Carbon Dioxide 21 mmol/L (22.0-30.0); Chloride 107 mmol/L (98-107); Chol/HDL Ratio 3.9 (1-3.5); Cholesterol 185 mg/dl (140-200); Eosinophils # 0.3 K/mm3 (0.0-0.4); Estimated Glomerular Filt Rate 37 ml/min (>60); GFR (African American) 45 ML/MIN (>60); Glucose 137 mg/dl (74-100); HDL Cholesterol 48 mg/dl (40-60); Hematocrit 39.9 % (37.0-47.0); Hemoglobin 12.5 g/dL (12.2-16.2); Lymphocytes # 3.5 K/mm3 (0.7-4.5); Lymphocytes % 40.1 % (10-50); Mean Corpuscular HGB Conc 31.3 g/dL (31.8-35.4); Mean Corpuscular Hemoglobin 25.1 pg (27.0-31.2); Mean Corpuscular Volume 80.3 fl (81-99); Mean Platelet Volume 8.2 fl (7.4-10.4); Monocytes # 0.5 K/mm3 (0.1-1.0); Monocytes % 5.9 % (1.7-9.3); Neutrophils # 4.5 K/mm3 (1.8-7.8); Neutrophils % 50.6 % (37.0-80.0); Platelet Count 414 K/mm3 (142-424); Potassium 4.2 mmoL/L (3.5-5.1); Red Blood Count 4.97 M/mm3 (4.20-5.40); Red Cell Distribution Width 15.8 % (11.5-17.5); Sodium 141 mmol/L (136-145); Total Protein,Serum 6.8 g/dl (6.3-8.2); Triglycerides 185 mg/dl (30-150); VLDL Cholesterol 37 mg/dL (0-40); White Blood Count 8.8 K/mm3 (4.8-10.8)
[2023-05-14 12:53] LABS: Direct LDL Cholesterol 104.08 mg/dL (100-129)
[2023-05-14 13:05] LABS: 25-OH Vitamin D, Total 46.1 ng/mL (30-100)
[2023-05-14 13:15] LABS: Hemoglobin A1C 7.3 % (4.0-6.0)
[2023-05-14 19:00] LABS: Creatinine,Urine Random 86 mg/dL (Not Estab.); Microalbumin/Creatinine Ratio 18.3
== END ==
PROVIDERS: PCP Physician Assistant; Visit Provider Physician Assistant
DX: E11.9 Type 2 diabetes mellitus without complications (principal); I10 Essential (primary) hypertension; N18.30 Chronic kidney disease, stage 3 unspecified; E66.9 Obesity, unspecified; Z68.41 Body mass index [BMI] 40.0-44.9, adult; Z79.84 Long term (current) use of oral hypoglycemic drugs; Z79.899 Other long term (current) drug therapy
CPT/HCPCS: 80053; 80061; 82043; 82306; 82570; 83036; 84443; 85025

== ENCOUNTER 2023-05-21 09:53 | Outpatient (CLI) | payer MEDICARE, SELFPAY ==
[2023-05-21 11:40] LABS: PHA INR Fingerstick 2.6 (0.9-1.1)
== END 2023-05-21 11:49 ==
LOC: ACC 09:54
PROVIDERS: PCP Physician Assistant; Visit Provider Physician Assistant
DX: Z79.01 Long term (current) use of anticoagulants (principal); Z51.81 Encounter for therapeutic drug level monitoring
CPT/HCPCS: 85610; 99211; G0463

== ENCOUNTER 2023-07-06 09:59 | Outpatient (CLI) | payer MEDICARE, SELFPAY ==
[2023-07-06 15:12] LABS: PHA INR Fingerstick 3.2 (0.9-1.1)
== END 2023-07-06 15:30 ==
LOC: ACC 10:00
PROVIDERS: PCP Physician Assistant; Visit Provider Physician Assistant
DX: Z79.01 Long term (current) use of anticoagulants (principal); Z51.81 Encounter for therapeutic drug level monitoring
CPT/HCPCS: 85610; 99211; G0463

== ENCOUNTER 2023-08-03 09:51 | Outpatient (CLI) | payer MEDICARE, SELFPAY ==
[2023-08-03 10:27] LABS: PHA INR Fingerstick 1.7 (0.9-1.1)
== END 2023-08-03 12:00 ==
LOC: ACC 09:52
PROVIDERS: PCP Physician Assistant; Visit Provider Physician Assistant
DX: Z79.01 Long term (current) use of anticoagulants (principal); Z51.81 Encounter for therapeutic drug level monitoring; I26.99 Other pulmonary embolism without acute cor pulmonale
CPT/HCPCS: 85610; 99211; G0463

== ENCOUNTER 2023-09-09 12:53 | Outpatient (CLI) | payer MEDICARE, SELFPAY ==
[2023-09-09 13:54] LABS: PHA INR Fingerstick 2.8 (0.9-1.1)
== END 2023-09-09 13:57 ==
LOC: ACC 12:53
PROVIDERS: PCP Physician Assistant; Visit Provider Physician Assistant
DX: Z79.01 Long term (current) use of anticoagulants (principal); Z51.81 Encounter for therapeutic drug level monitoring
CPT/HCPCS: 85610; 99211; G0463

== ENCOUNTER → 2023-09-16 11:25 | Outpatient (CLI) | payer MEDICARE, SELFPAY ==
[2023-09-16 12:22] LABS: Basophils # 0.1 K/mm3 (0-0.2); Basophils % 0.5 % (0.1-2.0); Eosinophils # 0.4 K/mm3 (0.0-0.4); Eosinophils % 3.6 % (0.1-12.0); Hematocrit 36.7 % (37.0-47.0); Hemoglobin 11.8 g/dL (12.2-16.2); Lymphocytes # 4.1 K/mm3 (0.7-4.5); Lymphocytes % 41.5 % (10-50); Mean Corpuscular HGB Conc 32.1 g/dL (31.8-35.4); Mean Corpuscular Hemoglobin 24.7 pg (27.0-31.2); Mean Platelet Volume 7.7 fl (7.4-10.4); Monocytes # 0.5 K/mm3 (0.1-1.0); Monocytes % 4.7 % (1.7-9.3); Neutrophils # 4.9 K/mm3 (1.8-7.8); Neutrophils % 49.6 % (37.0-80.0); Platelet Count 465 K/mm3 (142-424); Red Blood Count 4.76 M/mm3 (4.20-5.40); Red Cell Distribution Width 15.9 % (11.5-17.5); White Blood Count 9.9 K/mm3 (4.8-10.8)
[2023-09-16 12:49] LABS: Albumin Level 3.8 g/dl (3.5-5.0); Anion Gap 15.6 mEq/L (5-15); Blood Urea Nitrogen 23 mg/dl (7-17); Calcium 9.3 mg/dl (8.4-10.2); Carbon Dioxide 18 mmol/L (22.0-30.0); Chloride 108 mmol/L (98-107); Estimated Glomerular Filt Rate 37 ml/min (>60); GFR (African American) 45 ML/MIN (>60); Glucose 147 mg/dl (74-100); Phosphorous 3.6 mg/dl (2.5-4.5); Potassium 4.6 mmoL/L (3.5-5.1); Sodium 137 mmol/L (136-145)
[2023-09-16 13:01] LABS: 25-OH Vitamin D, Total 53.4 ng/mL (30-100)
[2023-09-16 16:23] LABS: Creatinine,Urine Random 71 mg/dL (Not Estab.)
== END ==
PROVIDERS: PCP Physician Assistant; Visit Provider Internal Medicine Nephrology
DX: N18.32 Chronic kidney disease, stage 3b (principal); M81.0 Age-related osteoporosis without current pathological fracture
CPT/HCPCS: 36415; 80069; 82043; 82306; 82570; 85025

== ENCOUNTER → 2023-09-21 11:13 | Outpatient (POV) | payer MEDICARE, SELFPAY | PROVIDERS: Visit Provider Nurse Practitioner | DX: Z00.00 Encounter for general adult medical examination without abnormal findings (principal) ==

== ENCOUNTER 2023-10-21 10:28 | Outpatient (CLI) | payer MEDICARE, SELFPAY ==
[2023-10-21 14:15] LABS: PHA INR Fingerstick 1.8 (0.9-1.1)
== END 2023-10-21 15:43 ==
LOC: ACC 10:29
PROVIDERS: PCP Physician Assistant; Visit Provider Physician Assistant
DX: Z79.01 Long term (current) use of anticoagulants (principal); Z51.81 Encounter for therapeutic drug level monitoring
CPT/HCPCS: 85610; 99211; G0463

== ENCOUNTER 2023-11-27 15:35 | Outpatient (CLI) | payer MEDICARE, SELFPAY ==
--- NOTE | 2023-11-27 15:57 | MM_ITS ---
PROCEDURE INFORMATION: Exam: MG Bilateral Screening 3D Mammography Exam date and time: 11/27/2023 4:17 PM Age: 73 years old Clinical indication: Screening examination TECHNIQUE: Imaging protocol: Bilateral Screening tomosynthesis and 2D mammography including computer-aided detection (CAD) when performed. COMPARISON: 1. MG MM DIG SCREENING MAMM BI W/CAD 04/02/2021 8:05 AM 2. MG MM DIG SCREENING MAMM BI W/CAD 03/26/2020 8:41 AM FINDINGS: MAMMOGRAPHY: Breast composition: The breasts are almost entirely fatty. Mass: None. Architectural distortion: None. Calcifications: No suspicious calcifications. Asymmetric density: None. Skin thickening: None. Axillary adenopathy: None. IMPRESSION: No mammographic evidence of malignancy. Annual screening is recommended unless otherwise clinically indicated. ASSESSMENT: BI-RADS Category 1: Negative
[2023-11-27 16:23] LABS: PHA INR Fingerstick 2.3 (0.9-1.1)
== END 2023-11-27 16:33 ==
PROVIDERS: PCP Physician Assistant; Visit Provider Physician Assistant
DX: Z12.31 Encounter for screening mammogram for malignant neoplasm of breast (principal); Z79.01 Long term (current) use of anticoagulants; Z51.81 Encounter for therapeutic drug level monitoring
CPT/HCPCS: 77063; 77067; 85610; 99211; G0463

== ENCOUNTER 2024-01-08 09:48 | Outpatient (CLI) | payer MEDICARE, SELFPAY | END 2024-01-08 11:27 | LOC: ACC 09:49 | PROVIDERS: PCP Physician Assistant; Visit Provider Physician Assistant | DX: Z79.01 Long term (current) use of anticoagulants (principal); Z51.81 Encounter for therapeutic drug level monitoring | CPT/HCPCS: 85610; 99211; G0463 ==

== ENCOUNTER 2024-02-23 10:34 | Outpatient (CLI) | payer MEDICARE, SELFPAY ==
[2024-02-23 11:27] LABS: PHA INR Fingerstick 2.7 (0.9-1.1)
== END 2024-02-23 11:28 ==
LOC: ACC 10:35
PROVIDERS: PCP Physician Assistant; Visit Provider Physician Assistant
DX: Z51.81 Encounter for therapeutic drug level monitoring (principal); Z79.01 Long term (current) use of anticoagulants
CPT/HCPCS: 85610; 99211; G0463

== ENCOUNTER 2024-04-05 10:56 | Outpatient (CLI) | payer MEDICARE, SELFPAY ==
[2024-04-05 12:50] LABS: PHA INR Fingerstick 3.2 (0.9-1.1)
== END 2024-04-05 13:01 ==
LOC: ACC 10:57
PROVIDERS: PCP Physician Assistant; Visit Provider Physician Assistant
DX: Z79.01 Long term (current) use of anticoagulants (principal); Z51.81 Encounter for therapeutic drug level monitoring
CPT/HCPCS: 85610; 99211; G0463

== ENCOUNTER 2024-05-06 10:28 | Outpatient (CLI) | payer MEDICARE, SELFPAY ==
[2024-05-06 11:43] LABS: PHA INR Fingerstick 2.4 (0.9-1.1)
== END 2024-05-06 11:46 ==
LOC: ACC 10:29
PROVIDERS: PCP Physician Assistant; Visit Provider Physician Assistant
DX: Z79.01 Long term (current) use of anticoagulants (principal); I26.99 Other pulmonary embolism without acute cor pulmonale
CPT/HCPCS: 85610; 99211; G0463

== ENCOUNTER 2024-05-25 10:30 | Outpatient (CLI) | payer MEDICARE, SELFPAY ==
[2024-05-25 18:30] LABS: Basophils # 0.1 K/mm3 (0-0.2); Basophils % 0.8 % (0.1-2.0); Eosinophils # 0.3 K/mm3 (0.0-0.4); Eosinophils % 2.9 % (0.1-12.0); Hematocrit 34.3 % (37.0-47.0); Hemoglobin 10.5 g/dL (12.2-16.2); Lymphocytes # 3.8 K/mm3 (0.7-4.5); Lymphocytes % 38.7 % (10-50); Mean Corpuscular HGB Conc 30.7 g/dL (31.8-35.4); Mean Corpuscular Hemoglobin 22.8 pg (27.0-31.2); Mean Corpuscular Volume 74.5 fl (81-99); Mean Platelet Volume 7.7 fl (7.4-10.4); Monocytes # 0.5 K/mm3 (0.1-1.0); Monocytes % 4.7 % (1.7-9.3); Neutrophils # 5.2 K/mm3 (1.8-7.8); Neutrophils % 52.9 % (37.0-80.0); Platelet Count 482 K/mm3 (142-424); Red Cell Distribution Width 18.4 % (11.5-17.5); White Blood Count 9.7 K/mm3 (4.8-10.8)
[2024-05-25 18:55] LABS: Alanine Aminotransferase 19 U/L (12-78); Albumin Level 3.5 g/dl (3.5-5.0); Albumin/Globulin Ratio 1.2 (1.1-1.8); Alkaline Phosphatase 122 U/L (38-126); Anion Gap 13.6 mEq/L (5-15); Aspartate Amino Transferase 20 U/L (14-36); Bilirubin,Total 0.3 mg/dl (0.2-1.3); Blood Urea Nitrogen 25 mg/dl (7-17); Calcium 9.2 mg/dl (8.4-10.2); Carbon Dioxide 18 mmol/L (22.0-30.0); Chloride 111 mmol/L (98-107); Chol/HDL Ratio 4.5 (1-3.5); Cholesterol 178 mg/dl (140-200); Estimated Glomerular Filt Rate 34 ml/min (>60); GFR (African American) 41 ML/MIN (>60); Globulin 2.9 g/dL (1.3-3.2); Glucose 158 mg/dl (74-100); HDL Cholesterol 40 mg/dl (40-60); Potassium 4.6 mmoL/L (3.5-5.1); Sodium 138 mmol/L (136-145); Total Protein,Serum 6.4 g/dl (6.3-8.2); Triglycerides 165 mg/dl (30-150); VLDL Cholesterol 33 mg/dL (0-40)
[2024-05-25 19:03] LABS: NT Pro Brain Natriuretic Pep. 101 pg/mL (0-125)
[2024-05-25 19:06] LABS: Direct LDL Cholesterol 99.92 mg/dL (100-129)
[2024-05-25 19:12] LABS: 25-OH Vitamin D, Total 48.3 ng/mL (30-100)
[2024-05-25 19:25] LABS: Thyroid Stimulating Hormone 2.14 uIU/mL (0.465-4.68)
[2024-05-25 19:55] LABS: Iron 40 ug/dL (37-170)
[2024-05-25 20:07] LABS: Total Iron Binding Capacity 314 ug/dL (265-497)
[2024-05-25 20:16] LABS: Creatinine,Urine Random 75 mg/dL (Not Estab.)
[2024-05-25 20:19] LABS: Microalbumin/Creatinine Ratio 13.7
[2024-05-26 12:39] LABS: HIV (1&2) Antibody Rapid NON REACTIVE
[2024-05-27 11:13] LABS: HCV Ab Non Reactive (Non Reactive)
== END 2024-05-25 23:59 | disposition home or self-care (01) ==
LOC: LAB.DROPOF 05-26 08:54
PROVIDERS: Visit Provider Family Medicine
DX: I10 Essential (primary) hypertension (principal); E11.9 Type 2 diabetes mellitus without complications; E55.9 Vitamin D deficiency, unspecified; R06.09 Other forms of dyspnea; Z00.00 Encounter for general adult medical examination without abnormal findings; R71.8 Other abnormality of red blood cells
CPT/HCPCS: 80050; 80053; 80061; 82043; 82306; 82570; 83540; 83550; 83880; 84443; 85025

== ENCOUNTER 2024-06-17 10:45 | Outpatient (CLI) | payer MEDICARE, SELFPAY ==
[2024-06-17 11:12] LABS: PHA INR Fingerstick 3.3 (0.9-1.1)
== END 2024-06-17 11:22 ==
LOC: ACC 10:46
PROVIDERS: PCP Physician Assistant; Visit Provider Physician Assistant
DX: Z79.01 Long term (current) use of anticoagulants (principal); I26.99 Other pulmonary embolism without acute cor pulmonale
CPT/HCPCS: 85610; 99211; G0463

== ENCOUNTER 2024-07-08 10:59 | Outpatient (CLI) | payer MEDICARE, SELFPAY ==
[2024-07-08 11:28] LABS: PHA INR Fingerstick 2.9 (0.9-1.1)
== END 2024-07-08 11:29 ==
LOC: ACC 11:01
PROVIDERS: PCP Physician Assistant; Visit Provider Physician Assistant
DX: Z79.01 Long term (current) use of anticoagulants (principal); Z86.711 Personal history of pulmonary embolism
CPT/HCPCS: 85610; 99211; G0463

== ENCOUNTER 2024-07-25 13:16 | Outpatient (CLI) | payer MEDICARE, SELFPAY ==
[2024-07-25 13:27] LABS: Microscopic, Urine URINE MICROSCOPIC (MICROSCOPIC)
[2024-07-25 13:46] LABS: Basophils # 0.1 K/mm3 (0-0.2); Basophils % 0.7 % (0.1-2.0); Eosinophils # 0.4 K/mm3 (0.0-0.4); Eosinophils % 3.4 % (0.1-12.0); Hematocrit 46.9 % (37.0-47.0); Hemoglobin 14.1 g/dL (12.2-16.2); Lymphocytes # 4.7 K/mm3 (0.7-4.5); Lymphocytes % 43.4 % (10-50); Mean Corpuscular HGB Conc 30.1 g/dL (31.8-35.4); Mean Corpuscular Hemoglobin 25.9 pg (27.0-31.2); Mean Corpuscular Volume 86.1 fl (81-99); Mean Platelet Volume 8.5 fl (7.4-10.4); Monocytes # 0.5 K/mm3 (0.1-1.0); Monocytes % 4.4 % (1.7-9.3); Neutrophils # 5.2 K/mm3 (1.8-7.8); Neutrophils % 48.1 % (37.0-80.0); Platelet Count 480 K/mm3 (142-424); Red Blood Count 5.45 M/mm3 (4.20-5.40); Red Cell Distribution Width 20.7 % (11.5-17.5); White Blood Count 10.8 K/mm3 (4.8-10.8)
[2024-07-25 13:49] LABS: Appearance,Urine SL CLOUDY (Clear); Bilirubin,Urine Negative (Negative); Blood, Urine Negative (Negative); Color,Urine YELLOW (Yellow); Glucose,Urine (UA) 1+ (Negative); Ketones,Urine Negative (Negative); Leukocyte Esterase,Urine 2+ (Negative); Nitrate,Urine Negative (Negative); Protein,Urine Negative (Negative); Specific Gravity, Urine <= 1.005 (1.005-1.030); Urobilinogen,Urine 0.2 EU/dl (0.2)
[2024-07-25 14:22] LABS: Bacteria,Urine 2+ /lpf
[2024-07-25 15:03] LABS: Albumin Level 3.9 g/dl (3.5-5.0); Anion Gap 14.3 mEq/L (5-15); Blood Urea Nitrogen 16 mg/dl (7-17); Calcium 9.6 mg/dl (8.4-10.2); Carbon Dioxide 19 mmol/L (22.0-30.0); Chloride 108 mmol/L (98-107); Estimated Glomerular Filt Rate 37 ml/min (>60); GFR (African American) 44 ML/MIN (>60); Glucose 119 mg/dl (74-100); Phosphorous 3.3 mg/dl (2.5-4.5); Potassium 4.3 mmoL/L (3.5-5.1); Sodium 137 mmol/L (136-145)
[2024-07-25 15:17] LABS: 25-OH Vitamin D, Total 68.8 ng/mL (30-100)
[2024-07-25 15:18] LABS: Intact Parathyroid Hormone 83.9 pg/mL (7.5-53.5)
[2024-07-25 17:34] LABS: Creatinine,Urine Random 51 mg/dL (Not Estab.)
== END 2024-07-25 23:59 | disposition home or self-care (01) ==
LOC: LAB 13:19
PROVIDERS: PCP Physician Assistant; Visit Provider Nurse Practitioner
DX: N18.32 Chronic kidney disease, stage 3b (principal)
CPT/HCPCS: 36415; 80069; 81001; 82306; 82570; 83970; 84156; 85025; 87086; 87088; 87186

== ENCOUNTER 2024-07-29 09:28 | Outpatient (POV) | payer MEDICARE, SELFPAY | END 2024-07-29 23:59 | disposition home or self-care (01) | LOC: SC 09:28 | PROVIDERS: Visit Provider Nurse Practitioner | DX: Z00.00 Encounter for general adult medical examination without abnormal findings (principal) ==

== ENCOUNTER 2024-08-22 10:47 | Outpatient (CLI) | payer MEDICARE, SELFPAY | END 2024-08-22 11:16 | LOC: ACC 10:48 | PROVIDERS: PCP Student in an Organized Health Care Education/Training Program; Visit Provider Physician Assistant | DX: Z79.01 Long term (current) use of anticoagulants (principal); Z86.711 Personal history of pulmonary embolism | CPT/HCPCS: 85610; 99211; G0463 ==

== ENCOUNTER 2024-10-03 10:24 | Outpatient (CLI) | payer MEDICARE, SELFPAY ==
[2024-10-03 11:54] LABS: PHA INR Fingerstick 2.2 (0.9-1.1)
== END 2024-10-03 12:53 ==
LOC: ACC 10:25
PROVIDERS: PCP Nurse Practitioner; Visit Provider Physician Assistant
DX: Z79.01 Long term (current) use of anticoagulants (principal)
CPT/HCPCS: 85610; 99211; G0463

== ENCOUNTER 2024-11-18 10:46 | Outpatient (CLI) | payer MEDICARE, SELFPAY ==
[2024-11-18 11:08] LABS: PHA INR Fingerstick 1.9 (0.9-1.1)
== END 2024-11-18 11:11 ==
LOC: ACC 10:48
PROVIDERS: PCP Student in an Organized Health Care Education/Training Program; Visit Provider Physician Assistant
DX: Z79.01 Long term (current) use of anticoagulants (principal); Z86.711 Personal history of pulmonary embolism
CPT/HCPCS: 85610; 99211; G0463

== ENCOUNTER 2024-12-16 10:38 | Outpatient (CLI) | payer MEDICARE, SELFPAY ==
[2024-12-16 11:39] LABS: PHA INR Fingerstick 3.6 (0.9-1.1)
== END 2024-12-16 11:31 ==
LOC: ACC 10:39
PROVIDERS: PCP Student in an Organized Health Care Education/Training Program; Visit Provider Student in an Organized Health Care Education/Training Program
DX: Z79.01 Long term (current) use of anticoagulants (principal); Z86.711 Personal history of pulmonary embolism
CPT/HCPCS: 85610; 99211; G0463

== ENCOUNTER 2024-12-26 10:53 | Outpatient (CLI) | payer MEDICARE, SELFPAY ==
[2024-12-26 12:02] LABS: Basophils % 0.4 % (0.1-2.0); Eosinophils # 0.4 K/mm3 (0.0-0.4); Eosinophils % 4.5 % (0.1-12.0); Hematocrit 47.2 % (37.0-47.0); Hemoglobin 14.9 g/dL (12.2-16.2); Lymphocytes % 43.4 % (10-50); Mean Corpuscular HGB Conc 31.6 g/dL (31.8-35.4); Mean Corpuscular Hemoglobin 28.5 pg (27.0-31.2); Mean Corpuscular Volume 90.2 fl (81-99); Mean Platelet Volume 10.3 fl (7.4-10.4); Monocytes # 0.5 K/mm3 (0.1-1.0); Monocytes % 5.3 % (1.7-9.3); Neutrophils # 4.2 K/mm3 (1.8-7.8); Neutrophils % 46.2 % (37.0-80.0); Platelet Count 365 K/mm3 (142-424); Red Blood Count 5.23 M/mm3 (4.20-5.40); Red Cell Distribution Width 14.8 % (11.5-17.5); White Blood Count 9.1 K/mm3 (4.8-10.8)
[2024-12-26 12:18] LABS: Albumin Level 4.1 g/dl (3.5-5.0); Chloride 110 mmol/L (98-107); Potassium 4.2 mmoL/L (3.5-5.1); Sodium 142 mmol/L (136-145)
[2024-12-26 12:20] LABS: Blood Urea Nitrogen 15 mg/dl (7-17); Estimated Glomerular Filt Rate 37 ml/min (>60); GFR (African American) 44 ML/MIN (>60)
[2024-12-26 12:21] LABS: Alanine Aminotransferase 24 U/L (12-78); Alkaline Phosphatase 118 U/L (38-126); Anion Gap 15.2 mEq/L (5-15); Aspartate Amino Transferase 26 U/L (14-36); Bilirubin,Direct 0.1 mg/dl (0.0-0.4); Bilirubin,Indirect 0.2 mg/dL (0.0-0.9); Bilirubin,Total 0.3 mg/dl (0.2-1.3); Bilirubin,Unconjugated 0.3 mg/dL (0.0-1.1); Calcium 9.4 mg/dl (8.4-10.2); Carbon Dioxide 21 mmol/L (22.0-30.0); Cholesterol 180 mg/dl (140-200); Glucose 138 mg/dl (74-100); Magnesium 1.7 mg/dl (1.6-2.3); Total Protein,Serum 6.8 g/dl (6.3-8.2); Triglycerides 181 mg/dl (30-150); VLDL Cholesterol 36 mg/dL (0-40)
[2024-12-26 12:22] LABS: Chol/HDL Ratio 3.9 (1-3.5); HDL Cholesterol 46 mg/dl (40-60)
[2024-12-26 12:38] LABS: Direct LDL Cholesterol 99.39 mg/dL (100-129)
[2024-12-26 12:45] LABS: Free T4 (Free Thyroxine) 1.58 ng/dl (0.78-2.19)
[2024-12-26 12:59] LABS: Thyroid Stimulating Hormone 2.49 uIU/mL (0.465-4.68)
== END 2024-12-26 23:59 | disposition home or self-care (01) ==
LOC: LAB 10:54
PROVIDERS: PCP Family Medicine; Visit Provider Nurse Practitioner Family
DX: I50.9 Heart failure, unspecified (principal); N18.32 Chronic kidney disease, stage 3b; I10 Essential (primary) hypertension; E11.9 Type 2 diabetes mellitus without complications; Z86.711 Personal history of pulmonary embolism; Z01.810 Encounter for preprocedural cardiovascular examination; Z79.01 Long term (current) use of anticoagulants; E78.5 Hyperlipidemia, unspecified; M85.80 Other specified disorders of bone density and structure, unspecified site; R71.8 Other abnormality of red blood cells; K90.89 Other intestinal malabsorption
CPT/HCPCS: 36415; 80048; 80061; 80076; 83735; 84439; 84443; 85025

== ENCOUNTER 2025-01-02 15:12 | Emergency (ER) | payer MEDICARE, SELFPAY ==
[2025-01-02 15:14] VITALS: BP 151/91; PULSE 50; RESP 24; TEMP 36.9; O2SAT 98; BMI 45.1
--- NOTE | 2025-01-02 15:30 | ED_ITS ---
Discharge Plan Disposition Patient Disposition: Home, Self-Care Condition: Good Prescriptions Prescriptions: New hydrocodone-acetaminophen 5-325 mg tablet 1 tab PO Q6H PRN (Reason: pain) Qty: 10 0RF No Action furosemide [Lasix] 20 mg tablet 20 mg PO DAILY PRN (Reason: edema) Qty: 14 0RF iron 159 mg (45 mg iron) tablet extended release PO ketoconazole 2 % cream topical hydrocortisone 2.5 % cream topical triamcinolone acetonide 0.1 % ointment topical colestipol 1 gram tablet 1 g PO BID Qty: 60 11RF (DME) blood-glucose meter [True Metrix Glucose Meter] [facility] [place] See Rx Instructions .ROUTE .COMPLEX Qty: 1 3RF Dose Instruction: CHECK SUGAR ONCE A DAY OR DIRECTED Rx Instructions: CHECK SUGAR ONCE A DAY OR DIRECTED ergocalciferol (vitamin D2) 1,250 mcg (50,000 unit) capsule See Rx Instructions .ROUTE .COMPLEX Qty: 14 3RF Dose Instruction: TAKE ONE CAPSULE BY MOUTH ONCE EVERY WEEK Rx Instructions: TAKE ONE CAPSULE BY MOUTH ONCE EVERY WEEK glimepiride 2 mg tablet See Rx Instructions .ROUTE .COMPLEX Qty: 180 3RF Dose Instruction: TAKE ONE TABLET BY MOUTH 2 TIMES A DAY Rx Instructions: TAKE ONE TABLET BY MOUTH 2 TIMES A DAY pantoprazole 40 mg tablet,delayed release (DR/EC) See Rx Instructions .ROUTE .COMPLEX Qty: 90 3RF Dose Instruction: TAKE ONE TABLET BY MOUTH ONCE A DAY Rx Instructions: TAKE ONE TABLET BY MOUTH ONCE A DAY dapagliflozin propanediol [Farxiga] 10 mg tablet 10 mg PO DAILY Qty: 90 3RF cholecalciferol (vitamin D3) 25 mcg (1,000 unit) tablet See Rx Instructions .ROUTE .COMPLEX Qty: 90 3RF Dose Instruction: TAKE ONE TABLET BY MOUTH ONCE A DAY Rx Instructions: TAKE ONE TABLET BY MOUTH ONCE A DAY losartan 25 mg tablet See Rx Instructions .ROUTE .COMPLEX Qty: 90 0RF Dose Instruction: TAKE ONE TABLET BY MOUTH ONCE A DAY Rx Instructions: TAKE ONE TABLET BY MOUTH ONCE A DAY levocetirizine 5 mg tablet See Rx Instructions .ROUTE .COMPLEX Qty: 90 0RF Dose Instruction: TAKE ONE TABLET BY MOUTH ONCE A DAY Rx Instructions: TAKE ONE TABLET BY MOUTH ONCE A DAY Ozempic 0.25 mg or 0.5 mg (2 mg/3 mL) pen injector See Rx Instructions .ROUTE .COMPLEX Qty: 3 0RF Dose Instruction: INJECT 0.25 MG SUBCUTANEOUSLY ONCE WEEKLY FOR 4 WEEKS THEN INCREASE TO 0.5 MG ONCE A WEEK Rx Instructions: INJECT 0.25 MG SUBCUTANEOUSLY ONCE WEEKLY FOR 4 WEEKS THEN INCREASE TO 0.5 MG ONCE A WEEK (DME) True Metrix Glucose Test Strip Strip See Rx Instructions .ROUTE .COMPLEX Qty: 100 0RF Dose Instruction: CHECK SUGAR ONCE A DAY OR DIRECTED Rx Instructions: CHECK SUGAR ONCE A DAY OR DIRECTED (DME) lancets [TRUEplus Lancets] 28 gauge misc See Rx Instructions .ROUTE .COMPLEX Qty: 100 1RF Dose Instruction: CHECK SUGAR ONCE A DAY OR DIRECTED Rx Instructions: CHECK SUGAR ONCE A DAY OR DIRECTED simvastatin 10 mg tablet See Rx Instructions .ROUTE .COMPLEX Qty: 30 0RF Dose Instruction: TAKE ONE TABLET BY MOUTH ONCE A DAY Rx Instructions: TAKE ONE TABLET BY MOUTH ONCE A DAY sodium,potassium,mag sulfates [Suprep Bowel Prep Kit] 17.5-3.13-1.6 gram recon soln See Rx Instructions PO .COMPLEX Qty: 354 0RF Rx Instructions: DILUTE; drink full amount early evening before AND next morning at least 4-5 hr before procedure; follow w 960 mL water PO warfarin 3 mg tablet 3 mg PO SUTUTHSA aspirin 81 mg tablet,delayed release (DR/EC) 81 mg PO DAILY warfarin 3 mg tablet 1.5 mg PO MOWEFR Rx Instructions: TAKE ONE TABLET BY MOUTH ONCE A DAY OR DIRECTED Referrals Follow up/Referrals: Josselin Gudino APRN [Primary Care Provider] - See instructions Activity Restrictions/Add. Instructions Additional Instructions/Restrictions: As we discussed please follow-up with your PCP for any continuing new or worsening signs or symptoms. Please utilize your incentive spirometer to help prevent lung collapse or pneumonia. If you have any increasing shortness of breath difficulty breathing return to the ER as needed. Clinical Impressions Clinical Impression: Left rib fracture Qualifiers: Encounter type: initial encounter Rib fracture type: single rib Fracture type: closed Qualified Code(s): S22.32XA - Fracture of one rib, left side, initial encounter for closed fracture Fall Qualifiers: Encounter type: initial encounter Qualified Code(s): W19.XXXA - Unspecified fall, initial encounter Print Language Print Language: Divehi Discharge ED Provider: Baltazar Dominguez General Adult HPI <ABEL Wang - Last Filed: 01/02/25 23:06> General Chief complaint: Fall Stated complaint: [id number], Lt side pain Time Seen by Provider: 01/02/25 15:29 Mode of Arrival: Ambulatory Source of Information: Patient and Relative Limitations: No Limitations Description of Symptoms (Recalled from ER Triage Doc. by RN): pt tripped and fell into [place] this morning at 0945 and is on coumadin for afib and blood clots, pt complains of left rib/side pain and she hit her head. denies pain anywhere else and patient is alox4 upon triage History of Present Illness HPI narrative: Patient presents for evaluation of a fall. Patient states that she was walking out of her house and tripped and fell approximately 2 feet from her porch onto a [place]. She felt immediate pain on her left side. Her head also struck pavement. Patient currently is on Coumadin. She denies any loss of consciousness neck pain head pain back pain but reports that she has left sided posterior thoracic pain in her ribs. She denies any difficulty breathing. Related Data Home Medications ?Medication ?Instructions ?Recorded ?Confirmed aspirin 81 mg tablet,delayed 81 mg PO DAILY CIRCULATION 09/09/23 01/02/25 release warfarin 3 mg tablet 3 mg PO SUTUTHSA Blood Thinner 09/09/23 01/02/25 ferrous sulfate, dried 159 mg (45 mg PO 10/26/24 01/02/25 mg iron) tablet,extended release (iron ER) hydrocortisone 2.5 % topical cream applic topical 10/26/24 01/02/25 ketoconazole 2 % topical cream applic topical 10/26/24 01/02/25 triamcinolone acetonide 0.1 % topical 10/26/24 01/02/25 topical ointment warfarin 3 mg tablet 1.5 mg PO MOWEFR 01/02/25 01/02/25 Previous Rx's ?Medication ?Instructions ?Recorded blood-glucose meter (True Metrix #1 ea 12/12/22 Glucose Meter) ergocalciferol (vitamin D2) 1,250 See Rx Instructions .Route 04/25/24 mcg (50,000 unit) capsule .COMPLEX #14 caps glimepiride 2 mg tablet See Rx Instructions .Route 04/25/24 .COMPLEX #180 tabs pantoprazole 40 mg tablet,delayed See Rx Instructions .Route 05/18/24 release .COMPLEX #90 tabs dapagliflozin propanediol 10 mg 10 mg PO DAILY #90 tabs 05/23/24 tablet (Farxiga) furosemide 20 mg tablet (Lasix) 20 mg PO DAILY PRN edema #14 tabs 05/25/24 cholecalciferol (vitamin D3) 25 See Rx Instructions .Route 07/19/24 mcg (1,000 unit) tablet .COMPLEX #90 tabs losartan 25 mg tablet See Rx Instructions .Route 09/16/24 .COMPLEX #90 tabs levocetirizine 5 mg tablet See Rx Instructions .Route 10/04/24 .COMPLEX #90 tabs semaglutide 0.25 mg or 0.5 mg (2 See Rx Instructions .Route 10/05/24 mg/3 mL) subcutaneous pen injector .COMPLEX #3 mL (Ozempic) blood sugar diagnostic (True #100 strips 10/26/24 Metrix Glucose Test Strip) colestipol 1 gram tablet 1 g PO BID #60 tabs 10/26/24 lancets 28 gauge (TRUEplus Lancets) #100 ea 10/26/24 simvastatin 10 mg tablet See Rx Instructions .Route 12/02/24 .COMPLEX #30 tabs sodium,potassium,mag sulfates 17.5 See Rx Instructions PO .COMPLEX 12/16/24 gram-3.13 gram-1.6 gram oral soln #354 mL (Suprep Bowel Prep Kit) hydrocodone 5 mg-acetaminophen 325 1 tab PO Q6H PRN pain #10 tabs 01/02/25 mg tablet Allergies Allergy/AdvReac Type Severity Reaction Status Date / Time alendronate sodium (From Allergy Intermediate RASH Verified 01/02/25 14:55 Fosamax) metformin Allergy Verified 01/02/25 14:55 lisinopril AdvReac Intermediate Cough Verified 01/02/25 14:55 PFS <ABEL Wang - Last Filed: 01/02/25 23:06> [facility] Disclaimer: The information contained in this section may have been updated after the patient was seen, as this information can be updated by other users. Medical History Encounter for pre-operative cardiovascular clearance History of pulmonary embolism Osteopenia Hypertension Diabetes Chronic kidney disease CHF (congestive heart failure) Surgical History Hx of esophagogastroduodenoscopy Hx of colonoscopy with polypectomy Hx of hysterectomy Hx of appendectomy Hx of cholecystectomy Social History Smoking Status: Never smoker second hand exposure: Yes alcohol intake: never substance use type: denies use current occupational status: retired Travel in the last 8 weeks: None household members: spouse housing: house current occupational exposures/hazards: No caffeine: Yes Have you lived/traveled outside [place] in past 30 days?: No Contact w/someone who lives/traveled outside US past 30 days?: No Exposure to someone with infectious disease in past 14 days?: No Do you have a fever (greater than 100.4 F or 38 C)?: No Have you tested positive for COVID-19: No Exposed to someone with COVID-19 in past 14 days?: No Do you have a sore throat?: No Do you have a cough?: No Do you have any weakness?: No Do you have any diarrhea?: No Are you experiencing any unusual bleeding?: No Do you have any muscle aches/pain?: No Do you have any abdominal pain?: No Are you experiencing loss of taste or smell?: No Other Medical History Have you received the Flu Vaccine for this season: No Have you received the Pneumonia Vaccine: No <ABEL Wang - Last Filed: 01/02/25 23:06> ROS Obtained: Yes Systems reviewed as appropriate & no additional complaints except as documented Physical Exam <ABEL Wang - Last Filed: 01/02/25 23:06> General General appearance: alert and in no apparent distress Head Head exam: atraumatic and normal inspection Respiratory Respiratory exam: Present normal lung sounds bilaterally Cardiovascular Cardiovascular exam: Present regular rate Neurological Exam Neurological exam: Present alert and oriented X3 Medical Decision Making <ABEL Wang - Last Filed: 01/02/25 23:06> Medical Records Medical records reviewed: Yes I reviewed the patient's medical records. Screening: Per USPSTF and CDC recommendations, given the prevalence of disease in our region, it is our hospital?s policy to screen for HIV and viral Hepatitis for all patients aged 18 and over and those with ongoing risk factors. Carlito Inquiry Pt receiving controlled substance: No Vital Signs: 01/02/25 15:14 01/02/25 18:45 Temperature 98.5 F 98.2 F Temperature Source Oral Pulse Rate 80 Pulse Rate [Left Radial] 50 L Respiratory Rate 24 20 Blood Pressure 139/86 Blood Pressure [Right Arm] 151/91 H Blood Pressure Mean [Right Arm] 111 02 Sat by Pulse Oximetry 98 Oxygen Delivery Method Room Air Room Air Lab Data Lab results reviewed: Yes I reviewed the patient's lab results. Lab Results 01/02/25 15:35: WBC 10.4, RBC 4.95, Hgb 14.1, Hct 43.9, MCV 88.7, MCH 28.5, MCHC 32.1, RDW 14.9, Plt Count 345, MPV 10.1, Neut % (Auto) 71.1, Lymph % (Auto) 22.8, Douglas % (Auto) 4.3, Eos % (Auto) 1.2, Baso % (Auto) 0.3, Neut # (Auto) 7.4, Lymph # (Auto) 2.4, Douglas # (Auto) 0.5, Eos # (Auto) 0.1, Baso # (Auto) 0.0, PT 23.9 H, INR 2.36 H, Sodium 138, Potassium 4.3, Chloride 110 H, Carbon Dioxide 19 L, Anion Gap 13.3, BUN 18 H, Creatinine 1.40 H, Estimated Creat Clear 30, E stimated GFR 37 L, Est GFR ( Amer) 44 L, Glucose 157 H, Calcium 8.6, Magnesium 1.6, Total Bilirubin 0.5, AST 31, ALT 26, Alkaline Phosphatase 115, Troponin I < 0.01, NT-Pro-B Natriuret Pep 457 H, Total Protein 7.3, Albumin 4.1, Globulin 3.2, Albumin/Globulin Ratio 1.3, Procalcitonin 0.061, TSH 2.06, Free T4 Index 5.3 L, Thyroxine (T4) 17.6 H, T3 Uptake 30, Acetaminophen < 10 L 01/02/25 15:35 01/02/25 15:35 Orders (Tests/Meds): ED MEDICATIONS Discontinued Medications Generic Name Dose Route Start Last Admin Trade Name Freq PRN Reason Stop Dose Admin Acetaminophen 1,000 mg 01/02/25 15:56 01/02/25 16:23 Acetaminophen 500mg Tab PO 01/02/25 15:57 1,000 mg ONCE ONE Administration Iopamidol 160 ml 01/02/25 17:12 01/02/25 17:14 Iopamidol-370 (76%);100ml Bottle IV 01/02/25 17:13 160 ml ONCE ONE Administration Oxycodone HCl 5 mg 01/02/25 15:56 01/02/25 16:23 Oxycodone 5mg Immediate Release Tablet PO 01/02/25 15:57 5 mg ONCE ONE Administration Sodium Chloride 10 ml 01/02/25 17:12 01/02/25 17:14 Sodium Chloride 0.9% 10ml Syr (Rad Only) IV 01/02/25 17:13 10 ml ONCE ONE Administration Sodium Chloride 50 ml 01/02/25 17:12 01/02/25 17:14 0.9 % Sodium Chloride 50 Ml Vial IV 01/02/25 17:13 50 ml ONCE ONE Administration Tramadol HCl 1 packet 01/02/25 18:43 01/02/25 18:44 Tramadol 50mg Tab Take Home Pack (10) PO 01/02/25 18:44 1 packet ONCE ONE Administration ORDERS Category Date Time Status CT angio abdomen pelvis Stat Cat Scan 01/02/25 15:[address] angio chest - dissection Stat Cat Scan 01/02/25 15:[address] angio head Stat Cat Scan 01/02/25 15:[address] angio neck Stat Cat Scan 01/02/25 15:[address] bony pelvis Stat Cat Scan 01/02/25 15:[address] cervical spine wo con Stat Cat Scan 01/02/25 15:[address] head/brain wo con Stat Cat Scan 01/02/25 15:[address] lumbar spine wo con Stat Cat Scan 01/02/25 15:[address] thoracic spine wo con Stat Cat Scan 01/02/25 15:56 Completed Acetaminophen Stat Lab 01/02/25 15:35 Completed BNP [NT Pro Brain Natriuretic Pep.] Stat Lab 01/02/25 15:35 Completed CBC w/Auto Diff [Complete Blood Count Auto Diff] Stat Lab 01/02/25 15:35 Completed CMP [Comprehensive Metabolic Panel] Stat Lab 01/02/25 15:35 Completed Magnesium Stat Lab 01/02/25 15:35 Completed PT INR [Prothrombin Time INR] AMLAB Lab 01/02/25 15:35 Completed Procalcitonin Stat Lab 01/02/25 15:35 Completed Thyroid Panel Stat Lab 01/02/25 15:35 Completed Trop I [Troponin I] Stat Lab 01/02/25 15:35 Completed Medical Decision Narrative: In summary patient is a 74-year-old female who presents to the emergency department for evaluation of a fall. Patient is hemodynamically stable upon arrival, afebrile. Physical exam is remarkable for ecchymosis in the left flank and tenderness to palpation in the left posterior ribs but no palpable bony deformities. Breath sounds clear and equal bilaterally to the bases with adventitious sounds. Patient has no cervical spine dorsal spine tenderness she has no palpable bony deformity. She struck the left side of her head however there is no evidence of hematoma or depressed skull fracture. Sheldon Coma Score 15 and she is awake alert and oriented person place and circumstance.. Differential diagnosis includes intracranial bleed versus skull fracture versus spinal fracture versus rib fracture versus lung contusion etc. Initial workup will be conducted with hematologic labs ED trauma scans. Initial interventions include Tylenol and oxycodone for now. Initial workup reviewed by me shows that her hematologic labs are nonactionable her INR is therapeutic and my informal interpretation of her imaging shows only a nondisplaced left posterior rib fracture prior to radiology read.. Upon repeat evaluation patient reported improvement in her pain after initial intervention. Given this patient is appropriate for discharge with instructions on incentive spirometry. Patient was able to pull 2 L on incentive spirometer here. Patient advised to follow-up with PCP within 48 hours if she has continuing new or worsening signs or symptoms or return to the ER as needed. <Balatzar Dominguez MD - Last Filed: 01/02/25 23:29> Vital Signs: 01/02/25 15:14 01/02/25 18:45 Temperature 98.5 F 98.2 F Temperature Source Oral Pulse Rate 80 Pulse Rate [Left Radial] 50 L Respiratory Rate 24 20 Blood Pressure 139/86 Blood Pressure [Right Arm] 151/91 H Blood Pressure Mean [Right Arm] 111 02 Sat by Pulse Oximetry 98 Oxygen Delivery Method Room Air Room Air Lab Data Lab Results 01/02/25 15:35: WBC 10.4, RBC 4.95, Hgb 14.1, Hct 43.9, MCV 88.7, MCH 28.5, MCHC 32.1, RDW 14.9, Plt Count 345, MPV 10.1, Neut % (Auto) 71.1, Lymph % (Auto) 22.8, Douglas % (Auto) 4.3, Eos % (Auto) 1.2, Baso % (Auto) 0.3, Neut # (Auto) 7.4, Lymph # (Auto) 2.4, Douglas # (Auto) 0.5, Eos # (Auto) 0.1, Baso # (Auto) 0.0, PT 23.9 H, INR 2.36 H, Sodium 138, Potassium 4.3, Chloride 110 H, Carbon Dioxide 19 L, Anion Gap 13.3, BUN 18 H, Creatinine 1.40 H, Estimated Creat Clear 30, E stimated GFR 37 L, Est GFR ( Amer) 44 L, Glucose 157 H, Calcium 8.6, Magnesium 1.6, Total Bilirubin 0.5, AST 31, ALT 26, Alkaline Phosphatase 115, Troponin I < 0.01, NT-Pro-B Natriuret Pep 457 H, Total Protein 7.3, Albumin 4.1, Globulin 3.2, Albumin/Globulin Ratio 1.3, Procalcitonin 0.061, TSH 2.06, Free T4 Index 5.3 L, Thyroxine (T4) 17.6 H, T3 Uptake 30, Acetaminophen < 10 L Orders (Tests/Meds): ED MEDICATIONS Discontinued Medications Generic Name Dose Route Start Last Admin Trade Name Felipeq PRN Reason Stop Dose Admin Acetaminophen 1,000 mg 01/02/25 15:56 01/02/25 16:23 Acetaminophen 500mg Tab PO 01/02/25 15:57 1,000 mg ONCE ONE Administration Iopamidol 160 ml 01/02/25 17:12 01/02/25 17:14 Iopamidol-370 (76%);100ml Bottle IV 01/02/25 17:13 160 ml ONCE ONE Administration Oxycodone HCl 5 mg 01/02/25 15:56 01/02/25 16:23 Oxycodone 5mg Immediate Release Tablet PO 01/02/25 15:57 5 mg ONCE ONE Administration Sodium Chloride 10 ml 01/02/25 17:12 01/02/25 17:14 Sodium Chloride 0.9% 10ml Syr (Rad Only) IV 01/02/25 17:13 10 ml ONCE ONE Administration Sodium Chloride 50 ml 01/02/25 17:12 01/02/25 17:14 0.9 % Sodium Chloride 50 Ml Vial IV 01/02/25 17:13 50 ml ONCE ONE Administration Tramadol HCl 1 packet 01/02/25 18:43 01/02/25 18:44 Tramadol 50mg Tab Take Home Pack (10) PO 01/02/25 18:44 1 packet ONCE ONE Administration ORDERS Category Date Time Status CT angio abdomen pelvis Stat Cat Scan 01/02/25 15:[address] angio chest - dissection Stat Cat Scan 01/02/25 15:[address] angio head Stat Cat Scan 01/02/25 15:[address] angio neck Stat Cat Scan 01/02/25 15:[address] bony pelvis Stat Cat Scan 01/02/25 15:[address] cervical spine wo con Stat Cat Scan 01/02/25 15:[address] head/brain wo con Stat Cat Scan 01/02/25 15:[address] lumbar spine wo con Stat Cat Scan 01/02/25 15:[address] thoracic spine wo con Stat Cat Scan 01/02/25 15:56 Completed Acetaminophen Stat Lab 01/02/25 15:35 Completed BNP [NT Pro Brain Natriuretic Pep.] Stat Lab 01/02/25 15:35 Completed CBC w/Auto Diff [Complete Blood Count Auto Diff] Stat Lab 01/02/25 15:35 Completed CMP [Comprehensive Metabolic Panel] Stat Lab 01/02/25 15:35 Completed Magnesium Stat Lab 01/02/25 15:35 Completed PT INR [Prothrombin Time INR] AMLAB Lab 01/02/25 15:35 Completed Procalcitonin Stat Lab 01/02/25 15:35 Completed Thyroid Panel Stat Lab 01/02/25 15:35 Completed Trop I [Troponin I] Stat Lab 01/02/25 15:35 Completed Medical Decision Narrative: In summary patient is a 74-year-old female who presents to the emergency department for evaluation of a fall. Patient is hemodynamically stable upon arrival, afebrile. Physical exam is remarkable for ecchymosis in the left flank and tenderness to palpation in the left posterior ribs but no palpable bony deformities. Breath sounds clear and equal bilaterally to the bases with adventitious sounds. Patient has no cervical spine dorsal spine tenderness she has no palpable bony deformity. She struck the left side of her head however there is no evidence of hematoma or depressed skull fracture. Sheldon Coma Score 15 and she is awake alert and oriented person place and circumstance.. Differential diagnosis includes intracranial bleed versus skull fracture versus spinal fracture versus rib fracture versus lung contusion etc. Initial workup will be conducted with hematologic labs ED trauma scans. Initial interventions include Tylenol and oxycodone for now. Initial workup reviewed by me shows that her hematologic labs are nonactionable her INR is therapeutic and my informal interpretation of her imaging shows only a nondisplaced left posterior rib fracture prior to radiology read.. Upon repeat evaluation patient reported improvement in her pain after initial intervention. Given this patient is appropriate for discharge with instructions on incentive spirometry. Patient was able to pull 2 L on incentive spirometer here. Patient advised to follow-up with PCP within 48 hours if she has continuing new or worsening signs or symptoms or return to the ER as needed. I was consulted by the JOSÉ MIGUEL, and we discussed the complexity of the problems being addressed. I approved the treatment and management plan for this patient's care in the Emergency Department, thus performing a substantive portion of the medical decision making. Baltazar Dominguez MD Critical Care <ABEL Wang - Last Filed: 01/02/25 23:06> Critical Care Time Critical Care Time: No
--- NOTE | 2025-01-02 15:41 | CT_ITS ---
PROCEDURE INFORMATION: Exam: CT Head Without Contrast Exam date and time: 01/02/2025 4:57 PM Age: 74 years old Clinical indication: Injury or trauma; Additional info: Altered mental status TECHNIQUE: Imaging protocol: Computed tomography of the head without contrast. Radiation optimization: All CT scans at this facility use at least one of these dose optimization techniques: automated exposure control; mA and/or kV adjustment per patient size (includes targeted exams where dose is matched to clinical indication); or iterative reconstruction. COMPARISON: No relevant prior studies available. FINDINGS: Brain: Mild diffuse cerebral atrophy is consistent with this patient's age. he visualized basilar cisterns are patent. The cortical/white matter interfaces are preserved throughout the brain. There is no evidence of mass, mass effect or midline shift. There is no evidence of acute hemorrhage within the brain parenchyma or the subarachnoid space. The craniocervical junction is within range of normal. There are patchy mild areas of diminished density in the periventricular and subcortical white matter bilaterally which are nonspecific, however likely represent chronic small vessel ischemic change. If symptoms persist, correlation with MRI is advised. There is a small focus of low attenuation in the left cerebellar hemisphere which may reflect a small chronic cerebellar infarct. Cerebral ventricles: The ventricular system is normal in size and distribution. Paranasal sinuses: 13 mm mucous retention cyst or polyp involves the inferior left maxillary sinus. Moderate mucoperiosteal thickening involves the right maxillary sinus. There is mild mucoperiosteal thickening involving scattered ethmoid air cells bilaterally. There is an air-fluid level involving the right maxillary sinus. Mastoid air cells: The mastoid sinuses are normal. Orbital cavities: The orbits are normal. Bones: There is no evidence of acute fracture. Soft tissues: No soft tissue swelling is identified. IMPRESSION: 1. No acute intracranial abnormality. 2. Small focus of low attenuation in the left cerebellar hemisphere widely reflecting small chronic cerebellar infarct. 3. Moderate paranasal sinus disease with air-fluid level in the right maxillary sinus suggesting acute sinusitis.
[2025-01-02 15:50] LABS: Basophils % 0.3 % (0.1-2.0); Eosinophils # 0.1 K/mm3 (0.0-0.4); Eosinophils % 1.2 % (0.1-12.0); Hematocrit 43.9 % (37.0-47.0); Hemoglobin 14.1 g/dL (12.2-16.2); Lymphocytes # 2.4 K/mm3 (0.7-4.5); Lymphocytes % 22.8 % (10-50); Mean Corpuscular HGB Conc 32.1 g/dL (31.8-35.4); Mean Corpuscular Hemoglobin 28.5 pg (27.0-31.2); Mean Corpuscular Volume 88.7 fl (81-99); Mean Platelet Volume 10.1 fl (7.4-10.4); Monocytes # 0.5 K/mm3 (0.1-1.0); Monocytes % 4.3 % (1.7-9.3); Neutrophils # 7.4 K/mm3 (1.8-7.8); Neutrophils % 71.1 % (37.0-80.0); Platelet Count 345 K/mm3 (142-424); Red Blood Count 4.95 M/mm3 (4.20-5.40); Red Cell Distribution Width 14.9 % (11.5-17.5); White Blood Count 10.4 K/mm3 (4.8-10.8)
[2025-01-02 15:55] LABS: INR 2.36 (0.9-1.1); Prothrombin Time 23.9 seconds (9.2-12.1)
--- NOTE | 2025-01-02 15:56 | CT_ITS ---
PROCEDURE INFORMATION: Exam: CT Lumbar Spine Without Contrast Exam date and time: 01/02/2025 5:05 PM Age: 74 years old Clinical indication: Injury or trauma; Additional info: Trauma, critical injury suspected TECHNIQUE: Imaging protocol: Computed tomography of the lumbar spine without contrast. Radiation optimization: All CT scans at this facility use at least one of these dose optimization techniques: automated exposure control; mA and/or kV adjustment per patient size (includes targeted exams where dose is matched to clinical indication); or iterative reconstruction. COMPARISON: CT THORACIC SPINE WO CON 01/02/2025 5:02 PM FINDINGS: Bones/joints: There is normal anatomic alignment of the lumbosacral spine. No acute lumbosacral fracture is identified. There is multilevel chronic degenerative changes throughout the spine. There is degenerative disc disease which produces a moderate central canal stenosis at L3-L4 and suspected mild central canal stenosis at L2-L3. There is a chronic degenerative fusion at L5-S1. Soft tissues: Unremarkable. IMPRESSION: Multilevel chronic degenerative changes throughout the lumbosacral spine without fracture.
--- NOTE | 2025-01-02 15:56 | CT_ITS ---
PROCEDURE INFORMATION: Exam: CTA Chest With Contrast Exam date and time: 01/02/2025 5:14 PM Age: 74 years old Clinical indication: Injury or trauma; Additional info: Trauma, critical injury suspected TECHNIQUE: Imaging protocol: Computed tomographic angiography of the chest with contrast. Exam focused on the arteries. 3D rendering (Not supervised by radiologist): MIP and/or 3D reconstructed images were created by the technologist. Radiation optimization: All CT scans at this facility use at least one of these dose optimization techniques: automated exposure control; mA and/or kV adjustment per patient size (includes targeted exams where dose is matched to clinical indication); or iterative reconstruction. Contrast material: ISOVUE; Contrast volume: 80 ml; Contrast route: INTRAVENOUS (IV); COMPARISON: CR XR CHEST PORTABLE 01/03/2020 12:33 PM FINDINGS: Pulmonary arteries: Normal. No pulmonary emboli. Aorta: Unremarkable. No aortic aneurysm. No aortic dissection. Lungs: Punctate old calcified granulomas in each lung. No acute pulmonary infiltrates. Pleural spaces: Unremarkable. No pneumothorax. No pleural effusion. Heart: Mild cardiomegaly. No pericardial effusion. Coronary arteries: Calcified coronary artery disease. Lymph nodes: Unremarkable. No enlarged lymph nodes. Liver: Hepatic steatosis. Adrenal glands: Adreniform enlargement of each adrenal gland suggesting adrenal hyperplasia. Stomach: Large hiatus hernia with most of the stomach located within the chest. Bones/joints: Nondisplaced fracture through the posterior left 11th rib. Soft tissues: Unremarkable. IMPRESSION: 1. No evidence of PE and the thoracic aorta is unremarkable. 2. Clear lungs. 3. Calcified coronary artery disease. 4. Large hiatus hernia with most of the stomach located within the chest. 5. Nondisplaced fracture posterior left 11th rib.
--- NOTE | 2025-01-02 15:56 | CT_ITS ---
PROCEDURE INFORMATION: Exam: CTA Head With Contrast, Arteriography Exam date and time: 01/02/2025 5:11 PM Age: 74 years old Clinical indication: Injury or trauma; Additional info: Trauma, critical injury suspected TECHNIQUE: Imaging protocol: Computed tomographic angiography of the head with contrast. Exam focused on the arteries. 3D rendering (Not supervised by radiologist): MIP and/or 3D reconstructed images were created by the technologist. Radiation optimization: All CT scans at this facility use at least one of these dose optimization techniques: automated exposure control; mA and/or kV adjustment per patient size (includes targeted exams where dose is matched to clinical indication); or iterative reconstruction. Contrast material: ISOVUE; Contrast volume: 80 ml; Contrast route: INTRAVENOUS (IV); COMPARISON: CT HEAD/BRAIN WO CON 01/02/2025 4:57 PM FINDINGS: ANTERIOR CIRCULATION: Right internal carotid artery: Scattered calcified and noncalcified atherosclerotic disease of the right internal carotid artery, cavernous and clinoid segments with at least 75 to 90% stenosis extending along the near entirety of the cavernous portion and into the proximal clinoid portion. Right middle cerebral artery: No occlusion or significant stenosis. No aneurysm. Right anterior cerebral artery: No occlusion or significant stenosis. No aneurysm. Left internal carotid artery: Focus of calcified atherosclerotic disease of the mid petrous portion of the left internal carotid artery without significant stenosis. Scattered calcified and noncalcified atherosclerotic disease of the left internal carotid artery, cavernous and clinoid segments with at least 75% stenosis of the proximal clinoid segment/distal cavernous segment. Left middle cerebral artery: No occlusion or significant stenosis. No aneurysm. Left anterior cerebral artery: No occlusion or significant stenosis. No aneurysm. POSTERIOR CIRCULATION: Right vertebral artery: Heavy atherosclerotic disease of the V4 segment of the right vertebral artery with 50% stenosis. Left vertebral artery: Heavy atherosclerotic disease in the V4 segment of the left vertebral artery with at least 75% stenosis. Basilar artery: No occlusion or significant stenosis. No aneurysm. Right posterior cerebral artery: origin of the right posterior cerebral artery. Left posterior cerebral artery: No occlusion or significant stenosis. No aneurysm. Brain: No definite mass, mass effect, or midline shift. Cerebral ventricles: No ventriculomegaly. Paranasal sinuses: Scattered ethmoidal air cell opacities. Air-fluid level within the right maxillary sinus. Left maxillary sinus mucous retention cyst. Maxillary sinus mucosal thickening. Periosteal thickening of the bilateral maxillary sinuses. Bones/joints: Unremarkable. No acute fracture. Soft tissues: Unremarkable. IMPRESSION: 1. No acute findings. 2. Significant atherosclerotic disease with multiple areas of significant stenosis as detailed above. 3. Findings which can be seen in acute on chronic sinusitis. Correlate clinically.
--- NOTE | 2025-01-02 15:56 | CT_ITS ---
PROCEDURE INFORMATION: Exam: CTA Abdomen and Pelvis With Contrast Exam date and time: 01/02/2025 5:14 PM Age: 74 years old Clinical indication: Injury or trauma; Additional info: Trauma, critical injury suspected TECHNIQUE: Imaging protocol: Computed tomographic angiography of the abdomen and pelvis with contrast. Exam focused on the arteries. 3D rendering (Not supervised by radiologist): MIP and/or 3D reconstructed images were created by the technologist. Radiation optimization: All CT scans at this facility use at least one of these dose optimization techniques: automated exposure control; mA and/or kV adjustment per patient size (includes targeted exams where dose is matched to clinical indication); or iterative reconstruction. Contrast material: ISOVUE; Contrast volume: 80 ml; Contrast route: INTRAVENOUS (IV); COMPARISON: CT BONY PELVIS 01/02/2025 5:07 PM FINDINGS: Aorta: The abdominal aorta is nonaneurysmal and there is no suggestion of a dissection. 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 The SMA and CARRIE are patent. Renal arteries: No occlusion or significant stenosis. Right iliac arteries: No occlusion or significant stenosis. Left iliac arteries: No occlusion or significant stenosis. Liver: Hepatic steatosis. No focal liver lesion identified. Gallbladder and biliary ducts: Cholecystectomy. Pancreas: The pancreas is normal in appearance. No evidence of pancreatic ductal dilatation. Spleen: The spleen is normal in appearance. Adrenal glands: Adreniform enlargement of each adrenal gland suggesting bilateral adrenal hyperplasia. Kidneys and ureters: The kidneys are normal in appearance. No evidence of hydronephrosis or hydroureter. No nephroureteral calculi are identified. Stomach and bowel: Large hiatus hernia with most of the stomach located within the chest. The small bowel loops are not thickened and are nondilated. There is colonic diverticulosis but no evidence of diverticulitis. Appendix: The appendix is not identified, but there are no inflammatory changes in its expected region. Intraperitoneal space: Unremarkable. No free air. No significant fluid collection. Lymph nodes: Unremarkable. No enlarged lymph nodes. Urinary bladder: The urinary bladder is normal in appearance. Reproductive: Status post hysterectomy. Bones/joints: Nondisplaced fracture posterior left 11th rib. Multilevel chronic degenerative changes throughout the visualized spine. Soft tissues: Fat containing periumbilical hernia. IMPRESSION: 1. Hepatic steatosis. 2. 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 3. Large hiatus hernia with most of the stomach located within the chest. 4. Colonic diverticulosis but no evidence of diverticulitis. 5. Nondisplaced posterior left 11th rib fracture.
--- NOTE | 2025-01-02 15:56 | CT_ITS ---
PROCEDURE INFORMATION: Exam: CT Cervical Spine Without Contrast Exam date and time: 01/02/2025 5:00 PM Age: 74 years old Clinical indication: Injury or trauma; Additional info: Trauma, critical injury suspected TECHNIQUE: Imaging protocol: Computed tomography of the cervical spine without contrast. Radiation optimization: All CT scans at this facility use at least one of these dose optimization techniques: automated exposure control; mA and/or kV adjustment per patient size (includes targeted exams where dose is matched to clinical indication); or iterative reconstruction. COMPARISON: CT HEAD/BRAIN WO CON 01/02/2025 4:57 PM FINDINGS: Bones: Alignment is intact from skull base to T1. The atlantooccipital articulations are preserved. The facet joints are appropriately aligned. The predental interval appears normal. The cervical spine demonstrates mild discogenic and spondylitic degenerative changes with minor endplate discogenic degenerative changes and marginal osteophytes predominantly at C4 through C6. There is no evidence of acute fracture. No air-fluid levels or bony destructive change. Vertebral body heights are preserved. No compression fractures. There is mild posterior diffuse annular bulge at the C5-C6 and C6-C7 levels. No significant central canal or neural foraminal stenosis. No large significant focal disc protrusion. Brain: The intracranial vasculature demonstrates diffuse moderate atherosclerotic calcification. Paranasal sinuses: 13 mm mucous retention cyst or polyp involves the inferior left maxillary sinus. Moderate mucoperiosteal thickening involves the right maxillary sinus. There is mild mucoperiosteal thickening involving scattered ethmoid air cells bilaterally. There is an air-fluid level involving the right maxillary sinus. Mastoid air cells: The visualized mastoid air cells are clear. Teeth: Dental amalgam artifact limits evaluation of adjacent structures. Lungs: The visualized portions of the lung apices are normal. Lymph nodes: There is no evidence of pathologic adenopathy. Soft tissues: The prevertebral soft tissues are within range of normal. No focal soft tissue hematomas. Other findings: There is a 7 mm hypodensity in the inferior right thyroid lobe, not optimally characterized on current exam. IMPRESSION: No acute posttraumatic abnormality. Moderate paranasal sinus disease with air-fluid level involving the right maxillary sinus raising the question of acute sinusitis.
--- NOTE | 2025-01-02 15:56 | CT_ITS ---
PROCEDURE INFORMATION: Exam: CTA Neck With Contrast Exam date and time: 01/02/2025 5:11 PM Age: 74 years old Clinical indication: Injury or trauma; Additional info: Trauma, critical injury suspected TECHNIQUE: Imaging protocol: Computed tomographic angiography of the neck with contrast. Exam focused on the cervical segments of the vasculature. 3D rendering (Not supervised by radiologist): MIP and/or 3D reconstructed images were created by the technologist. Radiation optimization: All CT scans at this facility use at least one of these dose optimization techniques: automated exposure control; mA and/or kV adjustment per patient size (includes targeted exams where dose is matched to clinical indication); or iterative reconstruction. Contrast material: ISOVUE; Contrast volume: 80 ml; Contrast route: INTRAVENOUS (IV); COMPARISON: CT CERVICAL SPINE WO CON 01/02/2025 5:00 PM FINDINGS: Right common carotid artery: There is a small focal outpouching from the medial lumen of the distal right carotid bulb measuring about 2.6 mm across (series 3, image 63), however this lesion demonstrates elevated attenuation with respect to the blood pool and likely reflects calcified atherosclerotic disease. Nonocclusive calcified and noncalcified atherosclerotic disease without significant stenosis of the carotid bulb. Right internal carotid artery: Tortuous distal right extracranial internal carotid artery. Right external carotid artery: No occlusion or stenosis of the origin. Left common carotid artery: Calcified and noncalcified atherosclerotic disease of the left common carotid artery bulb not causing significant stenosis. Left internal carotid artery: Calcified and noncalcified atherosclerotic disease at the origin and proximal aspect of the left internal carotid artery without significant stenosis. Left external carotid artery: No occlusion or stenosis of the origin. Right vertebral artery: No stenosis. No dissection or occlusion. Left vertebral artery: No stenosis. No dissection or occlusion. Aorta: Small focus of atherosclerotic disease of the aortic arch. Paranasal sinuses: Air-fluid level within the right maxillary sinus. Scattered ethmoidal air cell opacification. Small left maxillary sinus mucous retention cysts. Mucosal thickening of the bilateral maxillary sinuses. Mild periosteal thickening of the maxillary sinus pollock. Oral cavity: Enlarged and predominantly hypoattenuating submandibular and parotid glands bilaterally. Teeth: Near-complete absent dentition. Soft tissues: Normal. No significant soft tissue swelling. Bones/joints: No acute fracture. Lungs: Upper lung predominant pulmonary mosaicism. Granulomatous disease of the left lung. IMPRESSION: 1. Small medial outpouching from the right carotid bulb/bifurcation which demonstrates mildly hyperattenuating characteristics with respect of the blood pool, as such this likely represents a mineralizing/calcifying focus of soft plaque. 2. Findings which can be seen in chronic underlying inflammatory disease of the salivary glands. Correlate clinically. 3. Pulmonary mosaicism, nonspecific, could represent hypoventilatory change, edema, small airway disease. Correlate clinically. REFERENCES: NASCET CRITERIA. The degree of stenosis in the cervical segment of the internal carotid artery is based on NASCET criteria. Normal is no stenosis. Mild is less than 50% stenosis. Moderate is 50-69% stenosis. Severe is 70% to 99% stenosis. Total occlusion is no detectable patent lumen.
--- NOTE | 2025-01-02 15:56 | CT_ITS ---
PROCEDURE INFORMATION: Exam: CT Thoracic Spine Without Contrast Exam date and time: 01/02/2025 5:02 PM Age: 74 years old Clinical indication: Injury or trauma; Additional info: Trauma, critical injury suspected TECHNIQUE: Imaging protocol: Computed tomography of the thoracic spine without contrast. Radiation optimization: All CT scans at this facility use at least one of these dose optimization techniques: automated exposure control; mA and/or kV adjustment per patient size (includes targeted exams where dose is matched to clinical indication); or iterative reconstruction. COMPARISON: CT CERVICAL SPINE WO CON 01/02/2025 5:00 PM FINDINGS: Bones/joints: There is a nondisplaced fracture through the posterior left 11th rib. There is normal anatomic alignment of the thoracic spine and upper lumbar spine. There are multilevel chronic degenerative changes in the lower thoracic spine and upper lumbar spine. No evidence of a thoracic spine fracture. Soft tissues: Unremarkable. Coronary arteries: Calcified coronary artery disease. Other findings: Large hiatus hernia. IMPRESSION: 1. Nondisplaced fracture through the posterior left 11th rib. 2. Multilevel chronic degenerative changes in the lower thoracic spine and upper lumbar spine. No vertebral body fractures identified. 3. Calcified coronary artery disease and large hiatus hernia.
--- NOTE | 2025-01-02 15:57 | CT_ITS ---
PROCEDURE INFORMATION: Exam: CT Pelvis Without Contrast, Skeleton Exam date and time: 01/02/2025 5:07 PM Age: 74 years old Clinical indication: Injury or trauma; Additional info: Trauma, critical injury suspected TECHNIQUE: Imaging protocol: Computed tomography of the pelvis without contrast. Exam focused on the skeleton. Radiation optimization: All CT scans at this facility use at least one of these dose optimization techniques: automated exposure control; mA and/or kV adjustment per patient size (includes targeted exams where dose is matched to clinical indication); or iterative reconstruction. COMPARISON: CT LUMBAR SPINE WO CON 01/02/2025 5:05 PM FINDINGS: Intestine: The visualized small bowel loops are not thickened and are nondilated. There is colonic diverticulosis but no evidence of diverticulitis. The entire colon was not imaged on this exam. Bones/joints: Chronic degenerative changes in the lower lumbar spine. The sacrum, hips, iliac bones and pubic rami intact. Soft tissues: Fat containing periumbilical hernia. IMPRESSION: 1. No CT evidence of an acute pelvic fracture. 2. Multilevel chronic degenerative changes in the lower lumbar spine. 3. Colonic diverticulosis but no evidence of diverticulitis.
[2025-01-02 16:00] LABS: Albumin Level 4.1 g/dl (3.5-5.0); Chloride 110 mmol/L (98-107); Potassium 4.3 mmoL/L (3.5-5.1); Sodium 138 mmol/L (136-145)
[2025-01-02 16:02] LABS: Blood Urea Nitrogen 18 mg/dl (7-17); Creatinine Clearance Estimated 30 mL/min (50-200); Estimated Glomerular Filt Rate 37 ml/min (>60); GFR (African American) 44 ML/MIN (>60)
[2025-01-02 16:03] LABS: Alanine Aminotransferase 26 U/L (12-78); Albumin/Globulin Ratio 1.3 (1.1-1.8); Alkaline Phosphatase 115 U/L (38-126); Anion Gap 13.3 mEq/L (5-15); Aspartate Amino Transferase 31 U/L (14-36); Bilirubin,Total 0.5 mg/dl (0.2-1.3); Calcium 8.6 mg/dl (8.4-10.2); Carbon Dioxide 19 mmol/L (22.0-30.0); Globulin 3.2 g/dL (1.3-3.2); Glucose 157 mg/dl (74-100); Magnesium 1.6 mg/dl (1.6-2.3); Total Protein,Serum 7.3 g/dl (6.3-8.2)
[2025-01-02 16:19] LABS: Troponin I < 0.01 ng/ml (0.00-0.034)
[2025-01-02] MEDS: ACETAMINOPHEN 500MG TAB 1000 MG PO (16:23)
[2025-01-02] MEDS: OXYCODONE 5MG IMMEDIATE RELEASE TABLET 5 MG PO (16:23)
[2025-01-02 16:38] LABS: Acetaminophen < 10 ug/ml (10-30)
[2025-01-02 16:46] LABS: Free Thyroxine Index 5.3 ug/dL (5.93-13.13); T4 (Thyroxine) 17.6 ug/dl (5.53-11.0); Triiodothryronine (T3) Uptake 30 % (23.5-40.5)
[2025-01-02 16:57] LABS: NT Pro Brain Natriuretic Pep. 457 pg/mL (0-125)
[2025-01-02 17:00] LABS: Thyroid Stimulating Hormone 2.06 uIU/mL (0.465-4.68)
[2025-01-02] MEDS: SODIUM CHLORIDE 0.9% 10ML SYR (RAD ONLY) 10 ML IV (17:14)
[2025-01-02] MEDS: 0.9 % SODIUM CHLORIDE 50 ML VIAL IV (17:14)
[2025-01-02] MEDS: IOPAMIDOL-370 (76%);100ML BOTTLE 160 ML IV (17:14)
[2025-01-02 17:18] LABS: Procalcitonin 0.061 ng/mL (0.0-2.0)
--- NOTE | 2025-01-02 17:34 | PC.NURSE ---
advised patient that we need urine specimen
--- NOTE | 2025-01-02 18:05 | PC.NURSE ---
Pip[facility] PAC at bedside
--- NOTE | 2025-01-02 18:06 | PC.NURSE ---
pt family member very rude and short with nursing staff while patient is being seen, demanding to know wait times and why cant radiology read her reports faster and when is she gonna be admitted. pt family member also pointed out blood on the curtain and that they were waiting on the nurse to bring paperwork. 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
[2025-01-02] MEDS: TRAMADOL 50MG TAB TAKE HOME PACK (10) 1 PACKET PO (18:44)
[2025-01-02 18:45] VITALS: BP 139/86; PULSE 80; RESP 20; TEMP 36.8; O2SAT 98
== END 2025-01-02 18:49 | disposition home or self-care (01) ==
PROVIDERS: Physician Assistant; Emergency Provider Emergency Medicine; PCP Family Medicine
DX: S22.32XA Fracture of one rib, left side, initial encounter for closed fracture (principal); R52 Pain, unspecified; W01.198A Fall on same level from slipping, tripping and stumbling with subsequent striking against other object, initial encounter; Y93.89 Activity, other specified; Y92.008 Other place in unspecified non-institutional (private) residence as the place of occurrence of the external cause
CPT/HCPCS: 70450; 70496; 70498; 71275; 72125; 72128; 72131; 72192; 74174; 80053; 80329; 83735; 83880; 84145; 84436; 84443; 84479; 84484; 85025; 85610; 99285; G0480; Q9967

== ENCOUNTER 2025-01-11 10:25 | Outpatient (CLI) | payer MEDICARE, SELFPAY ==
--- NOTE | 2025-01-11 | CA_ITS ---
APPROVED REPORT Exam: Pharmacologic Technologist: Eva Hayes Ht: 5 ft 4 in Wt: 263 lbs BSA: 2.20 m2 HR: 81 bpm BP: 167/71 mmHg Stress Test Details Test: Lexiscan HR Resting HR: 81 bpm Max Heart Rate (APMHR): 146.637643 bpm Max HR Achieved: 89 bpm Target HR (85% APMHR): 124.130463 bpm % of APMHR: 60.96 Recovery HR: 89 bpm BP Resting BP: 167.0/71.0 mmHg Max BP: 167.0/71.0 mmHg Recovery BP: 161.0/69.0 mmHg ECG Resting ECG: Normal sinus rhythm with frequent PVC's and baseline diffuse STT abnormalities. Stress ECG Conclusion Symptoms: None Arrhythmias/Ectopy: Frequent PVC's and occasional couplets. ST-T Changes: < 1.[address] segment changes. Conclusion: Non-diagnostic Lexsican stress. Electronically signed by : Margot Ricardo MD 01/12/2025 12:35:09
--- NOTE | 2025-01-11 10:28 | CA_ITS ---
APPROVED REPORT EXAM: Comprehensive 2D, Doppler, and color-flow Echocardiogram Picker/Puller: Nedra Reina RVT Ht: 5 ft 4 in Wt: 263lbs BSA: 2.20 BP: 156/97 mmHg Indications: PRE-OP,DYSPENA,DM,HTN,EDEMA,LOW 2D Dimensions IVSd 1.03 cm F: 0.6-1.0 LVEF (Visual) 51.90 % PWd 0.70 cm F: 0.6 - 1.0 LA Volume 38.20 mL LVDd 4.74 cm F: 3.9 - 5.3 LA Volume Index 17.36 mL/m2 (M/F) 16-34 LVDs 3.48 cm F: 2.2 - 3.5 M-Mode Dimensions LA Diam 4.28 cm (1.9-4.0) TAPSE 1.98 (<1.7) LV Diastology E Decel Time 200 (160-240 msec) E/A Ratio 0.8 Aortic Valve FRANCE Index 1.33 cm2/m2 AoV Peak Roger. 143.0 (50-130 cm/s) AO Peak GR. 8.20 mmHg AO Mean GR. 5.00 (<5 mmHg) AO VTI 29.1 (18-25 cm) FRANCE (VTI) 3.00 (2.5-4.5 cm2) Mitral Valve MV E Max Roger. 67.0 (40-130 cm/s) MV A Velocity 87.0 (40-130 cm/s) E/A Ratio 0.78 MV PHT 59.0 ms Pulmonary Valve PV Peak Velocity 89.0 (50-150 cm/s) Tricuspid Valve TR P. Velocity 192.00 cm/s RAP Estimate 10.00 mmHg RVSP 24.70 mmHg Left Ventricle The left ventricle is normal size. The left ventricular systolic function is mildly reduced. There is increased LV wall thickness. The septum is asynchronous. Transmitral Doppler flow pattern suggests impaired LV relaxation. LVEF is 45%. Right Ventricle The right ventricle is not very well-visualized, but grossly appears normal in size and function. Atria Left atrium is mildly dilated. Right atrium is mildly dilated. There is no Doppler evidence of interatrial shunt. Aortic Valve Aortic valve is mildly thickened. There is no aortic valvular stenosis. No aortic regurgitation is present. Mitral Valve The mitral valve is normal in structure. No evidence of mitral valve stenosis. Trace mitral regurgitation. Tricuspid Valve Tricuspid valve is grossly normal in structure and function. Trace tricuspid regurgitation. There is insufficient TR jet to estimate RVSP. Pulmonic Valve The pulmonary valve is normal in structure. Trace pulmonic regurgitation. Great Vessels The aortic root is normal in size. IVC is normal in size and collapses >50% with inspiration. Pericardium There is no pericardial effusion. Other Information Study Quality: Fair Conclusion Mild reduction in LV systolic function (LVEF 45%). Mild biatrial dilation. No significant valvular stenosis or regurgitation. Electronically signed by : Margot Ricardo MD 01/19/2025 22:55:43
--- NOTE | 2025-01-11 11:08 | NM_ITS ---
APPROVED REPORT Exam: Nuclear Stress Test Indication: hypertension, diabetes, hyperlipidemia, fm hx, sob, abn ekg Patient Location: Outpatient Stress Tech: Eva Hayes ID Tech:TALIA Esquivel RT (R)(N)(M) Ht: 5 ft 4 in Wt: 260 lbs Bra Size: 44d HR: 81 bpm BP: 167/71 mmHg BSA: 2.19 m2 TID: 1.13 BMI: 44.6 History: hypertension, diabetes, hyperlipidemia, fm hx, sob, abn ekg patient cannot lay on stomach for prone images. Procedure: Patient received 0.4 mg of intravenous Lexiscan, resting heart rate 81 bpm, resting blood pressure 167/71 mmHg, with Lexiscan maximum heart rate achieved was 89 bpm which is % of the maximum predicted heart rate and blood pressure was 161/69 mmHg. With Lexiscan, patient denied any complaint of chest pain. Cardiac Stress and Resting SPECT Images: Cardiac Stress and Resting SPECT images were obtained using technetium 99m Myoview 30.2 mCi stress and 10.74 mCi at rest. Technically difficult study. The patient was unable to lie on her abdomen. Therefore, prone stress imaging could not be performed. This may affect the diagnostic interpretation of the study findings. Resting and stress imaging in supine positions demonstrate a large sized, moderate, predominantly fixed perfusion defect in the anterior and lateral LV pollock. There is also a large sized, moderate, partially reversible perfusion defect in the inferior LV wall. Gated imaging demonstrates moderate reduction in global LV systolic function. There is severe hypokinesis of the anterior and basal lateral LV pollock. LVEF is calculated at 34%. Conclusion: Large sized, moderate, predominantly fixed perfusion defect in the anterior and lateral LV pollock. There is also a large sized, moderate, partially reversible perfusion defect in the inferior LV wall. Findings are suggestive of partial reversible. Gated imaging demonstrates moderate reduction in global LV systolic function. There is severe hypokinesis of the anterior and basal lateral LV pollock. LVEF is calculated at 34%. Electronically signed by : Margot Ricardo MD 01/12/2025 12:27:23
[2025-01-11] MEDS: SODIUM CHLORIDE 0.9% 10ML SYR (RAD ONLY) 10 ML IV ×2 (11:15→13:00)
[2025-01-11] MEDS: REGADENOSON 0.4MG/5ML SYRINGE 0.4 MG IV (13:00)
[2025-01-11] MEDS: ISOTOPE MYOVIEW (PER STUDY) 1 DOSE IV (14:01)
== END 2025-01-11 23:59 | disposition home or self-care (01) ==
LOC: RT 10:26
PROVIDERS: PCP Family Medicine; Visit Provider Nurse Practitioner Family
DX: Z01.810 Encounter for preprocedural cardiovascular examination (principal); I51.7 Cardiomegaly; I50.9 Heart failure, unspecified; Z86.711 Personal history of pulmonary embolism; E11.22 Type 2 diabetes mellitus with diabetic chronic kidney disease; N18.32 Chronic kidney disease, stage 3b; Z79.01 Long term (current) use of anticoagulants
CPT/HCPCS: 78452; 93017; 93018; 93306; A9502; J2785

== ENCOUNTER 2025-01-31 10:27 | Outpatient (CLI) | payer MEDICARE, SELFPAY ==
[2025-01-31 15:14] LABS: PHA INR Fingerstick 2.4 (0.9-1.1)
== END 2025-01-31 15:31 ==
LOC: ACC 10:27
PROVIDERS: PCP Family Medicine; Visit Provider Student in an Organized Health Care Education/Training Program
DX: Z79.01 Long term (current) use of anticoagulants (principal); Z86.711 Personal history of pulmonary embolism
CPT/HCPCS: 85610; 99211; G0463

== ENCOUNTER 2025-02-03 14:41 | Outpatient (CLI) | payer MEDICARE, SELFPAY ==
[2025-02-03 15:19] LABS: INR 2.61 (0.9-1.1); Prothrombin Time 26.6 seconds (10.1-12.5)
[2025-02-04 17:35] LABS: Anti-Cardio Antibody IgM <9 MPL U/mL (0-12); Anti-Cardiolipin Antibody IgG 14 GPL U/mL (0-14)
[2025-02-05 13:26] LABS: Anti-Thrombin III Antigen 94 % (72-124); Antithrombin Activity 120 % (75-135)
[2025-02-06 15:03] LABS: Beta-2 Glycoprotein I Ab, IgG 19 (0-20); Beta-2 Glycoprotein I Ab, IgM <9 (0-32)
[2025-02-17 20:10] LABS: Anti-Cardiolipin Antibody IgG 12 GPL (.); Anti-Cardiolipin Antibody IgM <10 MPL (.); Beta-2 Glycoprotein I Ab, IgA <10 SAU (.); Beta-2 Glycoprotein I Ab, IgG 22 SGU (.); Beta-2 Glycoprotein I Ab, IgM <10 SMU (.); Hexagonal Phase Phospholipid 0 sec (.); INR 2.7 ratio (.); Prothrombin Time 26.9 sec (.); Thrombin Time 15.9 sec (.)
== END 2025-02-03 23:59 | disposition home or self-care (01) ==
LOC: LAB 14:42
PROVIDERS: PCP Family Medicine; Visit Provider Internal Medicine Medical Oncology
DX: I82.622 Acute embolism and thrombosis of deep veins of left upper extremity (principal); Z86.711 Personal history of pulmonary embolism
CPT/HCPCS: 36415; 81241; 85300; 85301; 85597; 85598; 85610; 85613; 85670; 85730; 86146; 86147

== ENCOUNTER 2025-02-07 07:14 | Day surgery (SDC) | payer MEDICARE, SELFPAY ==
[2025-02-07] VITALS (8 sets, daily range): BP systolic 102–142; BP diastolic 55–76; PULSE 59–85; RESP 17–20; O2SAT 97–100; BMI 44.9
--- NOTE | 2025-02-07 07:02 | IR_ITS ---
APPROVED REPORT Patient Location: Outpatient PROCEDURES Right radial arterial access Right retrograde radial angiogram INDICATION Coronary artery disease, Angina pectoris Informed consent was obtained prior to the procedure. COMPLICATIONS none Estimated Blood Loss: less than 10ml TECHNIQUE One percent lidocaine used to anesthetize the right anterior aspect of the wrist. The right radial artery was accessed via the Seldinger technique. A 6 [place] sheath was placed in the right radial artery. Blood would not adequately return from the sheath therefore 2 cc of contrast was used to inject in a retrograde manner. This demonstrated some retrograde extravasation at the mid radial site. At this point the sheath was removed good hemostasis was achieved using TR banding and the forearm was monitored with no increase in size or hematoma. Patient was transferred to the postop putting in stable condition IMPRESSION Unsuccessful attempted cardiac catheterization PLAN 1. Patient will be brought back to [facility] 1 week will undergo access from the left radial artery Electronically signed by : Jean-Paul Riley MD 02/07/2025 14:08:53
[2025-02-07 08:11] LABS: Basophils # 0.1 K/mm3 (0-0.2); Basophils % 0.8 % (0.1-2.0); Eosinophils # 0.3 K/mm3 (0.0-0.4); Eosinophils % 4.1 % (0.1-12.0); Hematocrit 45.9 % (37.0-47.0); Hemoglobin 14.9 g/dL (12.2-16.2); Lymphocytes # 3.3 K/mm3 (0.7-4.5); Lymphocytes % 41.8 % (10-50); Mean Corpuscular HGB Conc 32.5 g/dL (31.8-35.4); Mean Corpuscular Hemoglobin 29.2 pg (27.0-31.2); Mean Platelet Volume 9.8 fl (7.4-10.4); Monocytes # 0.4 K/mm3 (0.1-1.0); Monocytes % 5.4 % (1.7-9.3); Neutrophils # 3.8 K/mm3 (1.8-7.8); Neutrophils % 47.6 % (37.0-80.0); Platelet Count 359 K/mm3 (142-424); Red Cell Distribution Width 14.2 % (11.5-17.5); White Blood Count 7.9 K/mm3 (4.8-10.8)
[2025-02-07 08:20] LABS: Blood Urea Nitrogen 17 mg/dl (7-17); Calcium 9.6 mg/dl (8.4-10.2); Carbon Dioxide 17 mmol/L (22.0-30.0); Chloride 112 mmol/L (98-107); Creatinine Clearance Estimated 30 mL/min (50-200); Estimated Glomerular Filt Rate 37 ml/min (>60); GFR (African American) 44 ML/MIN (>60); Glucose 158 mg/dl (74-100); Sodium 140 mmol/L (136-145)
[2025-02-07 08:33] LABS: INR 2.87 (0.9-1.1)
[2025-02-07] MEDS: HEPARIN 1,000 UNITS/500ML NS (CATH LAB) 3000 UNIT IV (09:33)
[2025-02-07] MEDS: LIDOCAINE 1% 10ML MDV 20 ML IJ (09:34)
[2025-02-07] MEDS: NITROGLYCERIN 800MCG/8ML SYR (CATH LAB) 800 MCG IA (09:34)
[2025-02-07] MEDS: 0.9 % SODIUM CHLORIDE 500 ML 25 ML IV (09:34)
[2025-02-07] MEDS: diphenhydrAMINE 50MG/ML VIAL 50 MG IV (09:35)
[2025-02-07] MEDS: VERAPAMIL 2.5MG/ML 2ML VIAL 2.5 MG IV (09:35)
[2025-02-07] MEDS: MIDAZOLAM HCL 1MG/ML 5ML VIAL 1 MG IV (10:11)
[2025-02-07] MEDS: FENTANYL 100MCG/2ML VIAL 50 MCG IV (10:11)
--- NOTE | 2025-02-07 10:12 | SUR.PHASEII ---
Per Dr Rliey pt to be rescheduled for next week for cath via right femoral access d/t INR being 2.8. Pt to stop INR 5 days prior to procedure
[2025-02-07] MEDS: IOPAMIDOL-370 (76%);100ML BOTTLE 70 ML IV (14:25)
== END 2025-02-07 11:45 | disposition home or self-care (01) ==
PROVIDERS: PCP Family Medicine; Visit Provider Internal Medicine
DX: Z53.09 Procedure and treatment not carried out because of other contraindication (principal); I25.118 Atherosclerotic heart disease of native coronary artery with other forms of angina pectoris; I50.20 Unspecified systolic (congestive) heart failure; R06.02 Shortness of breath; R93.1 Abnormal findings on diagnostic imaging of heart and coronary circulation; I13.0 Hypertensive heart and chronic kidney disease with heart failure and stage 1 through stage 4 chronic kidney disease, or unspecified chronic kidney disease; N18.32 Chronic kidney disease, stage 3b; Z95.5 Presence of coronary angioplasty implant and graft; E11.22 Type 2 diabetes mellitus with diabetic chronic kidney disease; E78.5 Hyperlipidemia, unspecified; Z86.711 Personal history of pulmonary embolism; Z79.01 Long term (current) use of anticoagulants; Z88.8 Allergy status to other drugs, medicaments and biological substances; Z79.84 Long term (current) use of oral hypoglycemic drugs; Z79.85 Long-term (current) use of injectable non-insulin antidiabetic drugs
CPT/HCPCS: 80048; 85025; 85610; 93458; 99152; C1725; C1769; J1200; J1644; J3010; Q9967

== ENCOUNTER 2025-02-13 11:26 | Observation (INO) | payer MEDICARE, SELFPAY ==
[2025-02-13] VITALS (22 sets, daily range): BP systolic 137–202; BP diastolic 69–103; PULSE 61–92; RESP 18–27; TEMP 36.3–36.8; O2SAT 92–100; BMI 44.9; BMI 41.9
--- NOTE | 2025-02-13 07:09 | IR_ITS ---
APPROVED REPORT Patient Location: Outpatient Relocation Manager: Aryan Ramsey, RT (R) PROCEDURES Left heart catheterization Left ventriculogram Selective coronary angiogram Bilateral selective renal angiogram Drug-eluting stent deployment to the proximal and mid LAD in a contiguous manner Drug-eluting stent deployment to the ostial proximal left main artery INDICATION Coronary artery disease, Angina pectoris, Chronic renal insufficiency creatinine 1.4, Hypertension suspect renovascular hypertension, Suspected renal artery stenosis Informed consent was obtained prior to the procedure. COMPLICATIONS NONE Estimated Blood Loss: LESS THAN 10 ML TECHNIQUE One percent lidocaine was used to anesthetize the right groin. The right femoral artery was accessed via the Seldinger technique. A 4-Lao sheath was placed in the right femoral artery. The JL-4 and JR-4 catheter was also used to perform left heart catheterization left ventriculogram and selective coronary angiogram. Because patient had hypertension with a creatinine of 1.4 in the setting of diffuse coronary artery disease the likelihood for renal artery stenosis was high therefore bilateral selective renal angiography was performed with a JR4 catheter. At the end the diagnostic angiogram therapeutic and present milieu technician given a therapeutic ACT and the 4 Lao sheath was exchanged for a 6 Lao sheath. JL 4 guide catheter was placed in left main artery followed by choice floppy wire placed into the distal LAD. A 2.5 x 38 mm [place] frontier stent was placed in the mid LAD at 16 francisco. An additional 3.5 x 34 mm [place] frontier stent was placed proximal to this yet still overlapping and deployed at 16 francisco. A 3 mm x 15 mm noncompliant balloon was deployed into the midportion of the 2.5 mm stent and deployed at 20 and 24 francisco to post dilate. A 4 mm x 12 mm [place] frontier stent was placed in the ostial proximal left main artery deployed at 24 francisco. This balloon was advanced into the proximal LAD and deployed at 16 francisco to post dilate a stenotic area. Following this a 4.5 x 12 mm [place] frontier stent was placed on the left coronary cusp extending into the ostium of the left main artery and deployed at 24 francisco to post dilate. SRINIVAS-3 flow was present before and after the procedure. At the end the procedure the apparatus was removed the groin is reprepped closure change sheath was removed hemostasis was achieved using Perclose device patient was transferred to the postop putting in stable condition ANGIOGRAPHIC RESULTS The left main artery Has an ostial 60 to 70% stenosis and a distal 10% stenosis The left anterior descending artery Has proximal 50% stenosis with mid vessel 70 and 80% calcified stenoses. Distally the LAD has calcified 80% stenoses The circumflex artery Is nondominant and has diffuse mid vessel and distal 30 and 40% calcified stenoses The right coronary artery Is dominant and has proximal and mid vessel diffuse 30% stenoses The MORALES ventriculogram reveals Slight left ventricular dilatation ejection fraction 45% The left ventricular end-diastolic pressure 10 mmHg Right renal artery singular normal Left renal artery singular normal IMPRESSION Coronary disease as described above Successful stent to the ostial proximal left main artery severe disease reduced to 0% with 1 drug-eluting stent Successful stenting of the proximal to mid LAD severe disease reduced to 0% with 2 contiguous drug-eluting stents EF of 45% Normal LVEDP Normal renal arteries PLAN 1. Plavix 75 mg daily plus aspirin 81 mg daily plus Coumadin for 30 days then discontinue the aspirin and continue Coumadin and Plavix 2. LDL less than 55 achieved with high intensity statin 3. Avoidance of tobacco products 4. Risk factor modification 5. Patient should be admitted to the hospital overnight due to her renal insufficiency and complex nature of the procedure. 6. Check chemistry panel and CBC in the morning Electronically signed by : Jean-Paul Riley MD 02/13/2025 10:30:04
[2025-02-13 08:11] LABS: Basophils # 0.1 K/mm3 (0-0.2); Basophils % 0.5 % (0.1-2.0); Eosinophils # 0.4 K/mm3 (0.0-0.4); Eosinophils % 4.1 % (0.1-12.0); Hematocrit 45.2 % (37.0-47.0); Hemoglobin 14.5 g/dL (12.2-16.2); Lymphocytes % 39.4 % (10-50); Mean Corpuscular HGB Conc 32.1 g/dL (31.8-35.4); Mean Corpuscular Hemoglobin 29.3 pg (27.0-31.2); Mean Corpuscular Volume 91.3 fl (81-99); Mean Platelet Volume 9.7 fl (7.4-10.4); Monocytes # 0.7 K/mm3 (0.1-1.0); Monocytes % 6.6 % (1.7-9.3); Neutrophils # 4.9 K/mm3 (1.8-7.8); Neutrophils % 49.2 % (37.0-80.0); Platelet Count 390 K/mm3 (142-424); Red Blood Count 4.95 M/mm3 (4.20-5.40); Red Cell Distribution Width 13.8 % (11.5-17.5)
[2025-02-13 08:23] LABS: Chloride 111 mmol/L (98-107); INR 1.02 (0.9-1.1); Prothrombin Time 11.4 seconds (10.1-12.5); Sodium 139 mmol/L (136-145)
[2025-02-13 08:24] LABS: Potassium 4.2 mmoL/L (3.5-5.1)
[2025-02-13 08:26] LABS: Blood Urea Nitrogen 18 mg/dl (7-17); Creatinine Clearance Estimated 30 mL/min (50-200); Estimated Glomerular Filt Rate 37 ml/min (>60); GFR (African American) 44 ML/MIN (>60)
[2025-02-13 08:27] LABS: Anion Gap 17.2 mEq/L (5-15); Calcium 9.2 mg/dl (8.4-10.2); Carbon Dioxide 15 mmol/L (22.0-30.0); Glucose 165 mg/dl (74-100)
[2025-02-13] MEDS: HEPARIN 1,000 UNITS/500ML NS (CATH LAB) 3000 UNIT IV (09:36)
[2025-02-13] MEDS: diphenhydrAMINE 50MG/ML VIAL 50 MG IV (09:36)
[2025-02-13] MEDS: 0.9 % SODIUM CHLORIDE 500 ML 25 ML IV (09:37)
[2025-02-13] MEDS: FENTANYL 100MCG/2ML VIAL 50 MCG IV (09:37)
[2025-02-13] MEDS: LIDOCAINE 1% 10ML MDV 20 ML IJ (09:37)
[2025-02-13] MEDS: MIDAZOLAM HCL 1MG/ML 5ML VIAL 1 MG IV (09:37)
[2025-02-13] MEDS: HEPARIN 1,000 UNITS/ML 10ML VIAL (CATH LAB) 10000 UNIT IV (09:55)
[2025-02-13] MEDS: CLOPIDOGREL 300MG TABLET 600 MG PO (10:30)
--- NOTE | 2025-02-13 13:01 | HMH.PHAINT1 ---
Pharmacy Intervention Comments: HOME MEDICATION LIST VERIFIED USING LIST FROM OUTPATIENT PHARMACY AND LIST FROM CARDIOLOGY OFFICE
--- NOTE | 2025-02-13 13:12 | EXP.HP ---
History of Present Illness *Admission Date: 02/13/25 *Reason for visit:: S/p PCI *History of present illness: Melissa Thomas is a 74-year-old female with a medical history significant for hypertension, type 2 diabetes, right-sided pulmonary embolism who presented as an outpatient [facility]. Patient had a complex PCI with 3 stents including the grafts. Dr. Riley requested admission for monitoring of renal function s/p complex PCI and I accepted admission. On my evaluation of patient, she was laying in bed comfortably without acute concerns or distress. No chest pain, shortness of breath, abdominal pain. [facility] Disclaimer: The information contained in this section may have been updated after the patient was seen, as this information can be updated by other users. Medical History HLD (hyperlipidemia) SOBOE (shortness of breath on exertion) Atypical angina HFrEF (heart failure with reduced ejection fraction) Abnormal findings on diagnostic imaging of heart and coronary circulation Encounter for pre-operative cardiovascular clearance History of pulmonary embolism Osteopenia Hypertension Diabetes Chronic kidney disease CHF (congestive heart failure) Surgical History Hx of esophagogastroduodenoscopy Hx of colonoscopy with polypectomy Hx of hysterectomy Hx of appendectomy Hx of cholecystectomy Family History (Updated 02/13/25 @ 12:02 by Renetta Zhu RN) Other Cancer Social History (Updated 02/13/25 @ 12:02 by Renetta Zhu RN) Smoking Status: Never smoker second hand exposure: Yes alcohol intake: never substance use type: denies use current occupational status: retired Travel in the last 8 weeks: None household members: spouse housing: house current occupational exposures/hazards: No caffeine: Yes Have you lived/traveled outside [place] in past 30 days?: No Contact w/someone who lives/traveled outside [place] past 30 days?: No Exposure to someone with infectious disease in past 14 days?: No Do you have a fever (greater than 100.4 F or 38 C)?: No Have you tested positive for COVID-19: No Exposed to someone with COVID-19 in past 14 days?: No Do you have a sore throat?: No Do you have a cough?: No Do you have any weakness?: No Are you experiencing any nausea/vomitting?: No Do you have any diarrhea?: No Are you experiencing any unusual bleeding?: No Do you have any muscle aches/pain?: No Do you have any abdominal pain?: No Are you experiencing loss of taste or smell?: No Other Medical History Have you received the Flu Vaccine for this season: No Have you received the Pneumonia Vaccine: No Meds Home Medications and Allergies Home Medications ?Medication ?Instructions ?Recorded ?Confirmed ?Type aspirin 81 mg tablet,delayed 81 mg PO DAILY 09/09/23 02/13/25 History release warfarin 3 mg tablet 3 mg PO SUTUTHSA Blood Thinner 09/09/23 02/13/25 History dapagliflozin propanediol 10 mg 10 mg PO DAILY #90 tabs 05/23/24 02/13/25 Rx tablet (Farxiga) furosemide 20 mg tablet (Lasix) 20 mg PO DAILY PRN edema #14 tabs 05/25/24 02/13/25 Rx colestipol 1 gram tablet 1 g PO BID #60 tabs 10/26/24 02/13/25 Rx ferrous sulfate, dried 159 mg (45 159 mg PO DAILY 10/26/24 02/13/25 History mg iron) tablet,extended release (iron ER) blood sugar diagnostic (True #100 strips 01/19/25 02/13/25 Rx Metrix Glucose Test Strip) lancets 28 gauge (TRUEplus Lancets) #100 ea 01/19/25 02/13/25 Rx blood-glucose meter (True Metrix #1 ea 01/20/25 02/13/25 Rx Glucose Meter) carvedilol 6.25 mg tablet 6.25 mg PO BID #60 tabs 01/26/25 02/13/25 Rx sacubitril 24 mg-valsartan 26 mg 1 tab PO BID #60 tabs 01/26/25 02/13/25 Rx tablet (Entresto) cholecalciferol (vitamin D3) 25 25 mcg PO DAILY 02/13/25 02/13/25 History mcg (1,000 unit) tablet clopidogrel 75 mg tablet (Plavix) 75 mg PO DAILY 30 days #30 tabs 02/13/25 Rx ergocalciferol (vitamin D2) 1,250 1,250 mcg PO WEEKLY 02/13/25 02/13/25 History mcg (50,000 unit) capsule glimepiride 2 mg tablet 2 mg PO BID 02/13/25 02/13/25 History levocetirizine 5 mg tablet 5 mg PO DAILY 02/13/25 02/13/25 History pantoprazole 40 mg tablet,delayed 40 mg PO DAILY 02/13/25 02/13/25 History release semaglutide 0.25 mg or 0.5 mg (2 0.5 mg SQ WEEKLY 02/13/25 02/13/25 History mg/3 mL) subcutaneous pen injector (Ozempic) simvastatin 10 mg tablet 10 mg PO HS 02/13/25 02/13/25 History warfarin 3 mg tablet 1.5 mg PO MOWEFR 02/13/25 02/13/25 History New Prescriptions to Start Prescriptions: clopidogrel [Plavix] Jean-Paul Riley Allergies Allergy/AdvReac Type Severity Reaction Status Date / Time alendronate sodium (From Allergy Intermediate RASH Verified 02/07/25 07:58 Fosamax) metformin Allergy Rash Verified 02/07/25 07:58 lisinopril AdvReac Intermediate Cough Verified 02/07/25 07:58 Exam Data for Last 24 hours Vital signs and Labs for Last 24 Hours: Pulse Resp BP Pulse Ox O2 Del Method 70 23 177/86 H 97 Room Air 02/13/25 12:00 02/13/25 11:28 02/13/25 11:28 02/13/25 11:28 02/13/25 11:28 Laboratory Results - last 24 hr 02/13/25 07:52: WBC 10.0, RBC 4.95, Hgb 14.5, Hct 45.2, MCV 91.3, MCH 29.3, MCHC 32.1, RDW 13.8, Plt Count 390, MPV 9.7, Neut % (Auto) 49.2, Lymph % (Auto) 39.4, Callahan % (Auto) 6.6, Eos % (Auto) 4.1, Baso % (Auto) 0.5, Neut # (Auto) 4.9, Lymph # (Auto) 4.0, Callahan # (Auto) 0.7, Eos # (Auto) 0.4, Baso # (Auto) 0.1, PT 11.4, INR 1.02, Sodium 139, Potassium 4.2, Chloride 111 H, Carbon Dioxide 15 L, Anion Gap 17.2 H, BUN 18 H, Creatinine 1.40 H, Estimated Creat Clear 30, Estimated GFR 37 L, Est GFR ( Amer) 44 L, Glucose 165 H, Calcium 9.2 I & O for Last 24 hours: Intake & Output 02/10/25 02/11/25 02/12/25 02/13/25 23:59 23:59 23:59 23:59 Weight 111.385 kg Constitutional Constitutional: no acute distress and obese *Routine HEENT Exam Head: Present normocephalic Eye: Present EOMI and PERRL ENT: Present mucous membranes moist *Routine Neck Exam Neck: Present supple; Absent lymphadenopathy *Routine Respiratory Exam Respiratory: Present CTA bilaterally *Routine Cardiovascular Exam Cardiovascular: Present RRR *Routine Abdominal Exam Abdominal: Present soft and normoactive bowel sounds; Absent tenderness *Routine Rectal Exam Rectal:: deferred *Routine Genitalia Exam Genitalia:: deferred *Routine Extremities Exam Extremities: Absent cyanosis, clubbing or edema *Routine Skin Exam Skin: Present warm; Absent rash *Routine Neurological Exam Neurological: Present alert and oriented X3 Assessment and Plan *Assessment and plan (1) CAD (coronary artery disease): Status: Acute Category: Medical Code(s): I25.10 - Atherosclerotic heart disease of [place] coronary artery without angina pectoris (2) HFrEF (heart failure with reduced ejection fraction): Status: Acute Category: Medical Code(s): I50.20 - Unspecified systolic (congestive) heart failure Plan Melissa Thomas is a 74-year-old female with a medical history significant for hypertension, type 2 diabetes, right-sided pulmonary embolism who presented as an outpatient [facility]. Patient had a complex PCI with 3 stents including the grafts. Dr. Riley requested admission for monitoring of renal function s/p complex PCI and I accepted admission. On my evaluation of patient, she was laying in bed comfortably without acute concerns or distress. No chest pain, shortness of breath, abdominal pain. #CAD s/p stents #LV dysfunction #Hypertension #CKD stage III ? S/p complex PCI 02/13/2025 with SANDRA x 3 to ostial proximal LMA, LAD. Patient tolerated procedure well. ? Aspirin 81 mg, Plavix 75 mg, carvedilol 6.25 mg, simvastatin. ? Cardiology consulted, pending further recommendations. ? ECHO early January LVEF 45%. No signs of volume overload. ? Creatinine 1.4, GFR 37. Stable CKD. Hold home Entresto, Lasix, Farxiga for now to reduce risk of contrast nephropathy. #Type 2 diabetes ? A1c 6.24 December 2024. ? LDSSI, ACHS glucose checks. #History of right-sided pulmonary embolism ? Continue home warfarin. Full code DVT prophylaxis: Home warfarin
[2025-02-13] MEDS: IOPAMIDOL-370 (76%);100ML BOTTLE 130 ML IV (13:39)
[2025-02-13 13:42] LABS: CATHL Activated Clotting Time > 400 SEC (74-125)
[2025-02-13] MEDS: WARFARIN 3MG TABLET 1.5 MG PO (14:45)
[2025-02-13 17:34] LABS: POC Glucose,Bedside 99 (70-110)
[2025-02-13] MEDS: CARVEDILOL 6.25MG TABLET 6.25 MG PO (20:31)
[2025-02-13] MEDS: PANTOPRAZOLE 40MG TABLET 40 MG PO (20:31)
[2025-02-13] MEDS: PRAVASTATIN 20MG TAB 20 MG PO (20:31)
[2025-02-13 22:50] LABS: POC Glucose,Bedside 108 (70-110)
[2025-02-14] VITALS: BP 130/75; PULSE 74; PULSE 80; RESP 23; O2SAT 96
[2025-02-14 04:00] VITALS: BP 128/59; PULSE 79; RESP 18; TEMP 36.8; O2SAT 93; BMI 43.4
[2025-02-14 06:10] LABS: Basophils % 0.4 % (0.1-2.0); Eosinophils # 0.1 K/mm3 (0.0-0.4); Eosinophils % 1.4 % (0.1-12.0); Hematocrit 42.6 % (37.0-47.0); Hemoglobin 13.9 g/dL (12.2-16.2); Lymphocytes # 2.6 K/mm3 (0.7-4.5); Lymphocytes % 27.2 % (10-50); Mean Corpuscular HGB Conc 32.6 g/dL (31.8-35.4); Mean Corpuscular Hemoglobin 29.6 pg (27.0-31.2); Mean Corpuscular Volume 90.6 fl (81-99); Mean Platelet Volume 9.8 fl (7.4-10.4); Monocytes # 0.5 K/mm3 (0.1-1.0); Monocytes % 5.6 % (1.7-9.3); Neutrophils # 6.2 K/mm3 (1.8-7.8); Neutrophils % 65.4 % (37.0-80.0); Platelet Count 328 K/mm3 (142-424); Red Cell Distribution Width 13.6 % (11.5-17.5); White Blood Count 9.4 K/mm3 (4.8-10.8)
[2025-02-14 06:33] LABS: Chloride 109 mmol/L (98-107); Potassium 4.6 mmoL/L (3.5-5.1); Sodium 139 mmol/L (136-145)
[2025-02-14 06:36] LABS: Anion Gap 12.6 mEq/L (5-15); Blood Urea Nitrogen 16 mg/dl (7-17); Calcium 9.1 mg/dl (8.4-10.2); Carbon Dioxide 22 mmol/L (22.0-30.0); Creatinine Clearance Estimated 28 mL/min (50-200); Estimated Glomerular Filt Rate 34 ml/min (>60); GFR (African American) 41 ML/MIN (>60); Glucose 145 mg/dl (74-100)
--- NOTE | 2025-02-14 06:54 | PC.NURSE ---
Alert and oriented. Post cath, [facility] CDI. No complaints from patient. Added 2L NC once throughout night due to patient sat dropping to 86%, when awake O2 is room air. Call light in reach.
[2025-02-14 08:00] VITALS: BP 120/66; PULSE 75; PULSE 80; RESP 16; TEMP 36.7; O2SAT 98
--- NOTE | 2025-02-14 08:47 | CA_ITS ---
APPROVED REPORT EXAM: Comprehensive 2D, Doppler, and color-flow Echocardiogram Supervisor Farm Equipment Maintenance: Yady Young RT(R) Ht: 5 ft 4 in Wt: 254lbs BSA: 2.17 BP: 177/86 mmHg Indications: DM, SOB, hyperlipidemia, HFrEF, EF of 45% echo 01/11/25, EF 45% on heart cath 02/13/25. CH, hx PE, 3 cardiac stents placed yesterday per patient. 2D Dimensions LVEF (Barrios's) 50.40 % F: 54 - 74 LV Volume 99.50 mL F: 46 - 106 LV Volume Index 45.9 mL/m2 F: 29 - 61 LA Volume 29.10 mL LA Volume Index 13.41 mL/m2 (M/F) 16-34 EF AP4 47.30 % EF AP2 51.3 % EF BP 50.4 % GL Strain -12.2 % M-Mode Dimensions RVDd 2.61 cm (0.9-2.6) LA Diam 2.95 cm (1.9-4.0) LVDd 3.82 cm (3.5-5.7) LVDs 3.05 cm (3.5-5.7) IVSd 0.80 cm (0.6-1.1) PWd 0.76 cm (0.6-1.1) EF (Teich) 41.90% FS 20.20% EDV (Teich) 62.70 mL TAPSE 1.35 (<1.7) ESV (Teich) 36.40 mL LV Diastology E Decel Time 157 (160-240 msec) E/A Ratio 0.8 MED A' 6.60 cm/s LAT A' 8.00 cm/s Mitral Valve MV E Max Roger. 90.0 (40-130 cm/s) MV A Velocity 119.0 (40-130 cm/s) E/A Ratio 0.76 MV PHT 46.0 ms Tricuspid Valve TR P. Velocity 272.00 cm/s RAP Estimate 10.00 mmHg RVSP 39.70 mmHg Left Ventricle The left ventricle is normal size. The left ventricular systolic function is mildly reduced. There is increased LV wall thickness. There is mild global hypokinesis present. LVEF is 45%. Transmitral Doppler flow pattern suggests impaired LV relaxation. LVEF is 45% Right Ventricle The right ventricle is normal size. The right ventricular systolic function is normal. Atria Left atrium is mildly dilated. Right atrium is mildly dilated. There is no Doppler evidence of interatrial shunt. Aortic Valve Aortic valve is mildly thickened. Trace aortic regurgitation. There is no aortic valvular stenosis. Mitral Valve The mitral valve is normal in structure. Mild mitral regurgitation. Tricuspid Valve Tricuspid valve is grossly normal in structure and function. Mild tricuspid regurgitation. RVSP is 30-35 mmHg. Pulmonic Valve The pulmonary valve is normal in structure. Mild pulmonic regurgitation. Great Vessels The aortic root is normal in size. IVC is normal in size and collapses >50% with inspiration. Pericardium There is no pericardial effusion. Other Information Study Quality: Fair Conclusion Mildly reduced LV systolic function (LVEF 45%). Mild biatrial dilation. Mild MR, mild TR, mild PI. Electronically signed by : Margot Ricardo MD 02/14/2025 12:11:40
[2025-02-14] MEDS: ASPIRIN EC 81MG TABLET 81 MG PO (08:55)
[2025-02-14] MEDS: CARVEDILOL 6.25MG TABLET 6.25 MG PO (08:56)
[2025-02-14] MEDS: CLOPIDOGREL 75MG TAB 75 MG PO (08:58)
--- NOTE | 2025-02-14 10:55 | EXP.DC.SUM ---
General Admission date:: 02/13/25 Discharge date: 02/14/25 HPI HPI HPI: Melissa Thomas is a 74-year-old female with a medical history significant for hypertension, type 2 diabetes, right-sided pulmonary embolism who presented as an outpatient [facility]. Patient had a complex PCI with 3 stents including the grafts. Dr. Riley requested admission for monitoring of renal function s/p complex PCI and I accepted admission. On my evaluation of patient, she was laying in bed comfortably without acute concerns or distress. No chest pain, shortness of breath, abdominal pain. Hospital Course Hospital Course Hospital Course: Melissa Thomas is a 74-year-old female with a medical history significant for hypertension, type 2 diabetes, right-sided pulmonary embolism who presented as an outpatient [facility]. Patient had a complex PCI with 3 stents including the grafts. Dr. Riley requested admission for monitoring of renal function s/p complex PCI and I accepted admission. On my evaluation of patient, she was laying in bed comfortably without acute concerns or distress. No chest pain, shortness of breath, abdominal pain. Did well overnight with no acute events. Stable discharge home. Problems addressed as follows: #CAD s/p stents #LV dysfunction #Hypertension #CKD stage III ? S/p complex PCI 02/13/2025 with SANDRA x 3 to ostial proximal LMA, LAD. Patient tolerated procedure well. Aspirin 81 mg, Plavix 75 mg, carvedilol 6.25 mg, simvastatin. ECHO early January LVEF 45%. No signs of volume overload. Creatinine 1.5, BUN 16. Stable CKD. Resume Farxiga 10 mg daily, Lasix 20 mg daily, Entresto 24/26 mg twice daily at discharge. #Type 2 diabetes ? A1c 6.24 December 2024. Sliding scale insulin during admission. Resume home regimen with Ozempic, Farxiga, and glimepiride. #History of right-sided pulmonary embolism ? Continue home warfarin. Exam Data for Last 24 hours Vital signs and Labs for Last 24 Hours: Temp Pulse Resp BP Pulse Ox O2 Del Method O2 Flow Rate 98.1 F 75 16 120/66 98 Room Air 2 02/14/25 08:00 02/14/25 08:00 02/14/25 08:00 02/14/25 08:00 02/14/25 08:00 02/14/25 09:00 02/14/25 04:00 Laboratory Results - last 24 hr 02/13/25 09:52: Activated Clotting Time > 400 H* 02/13/25 16:57: POC Glucose 99 02/13/25 22:43: POC Glucose 108 02/14/25 05:46: WBC 9.4, RBC 4.70, Hgb 13.9, Hct 42.6, MCV 90.6, MCH 29.6, MCHC 32.6, RDW 13.6, Plt Count 328, MPV 9.8, Neut % (Auto) 65.4, Lymph % (Auto) 27.2, [place] % (Auto) 5.6, Eos % (Auto) 1.4, Baso % (Auto) 0.4, Neut # (Auto) 6.2, Lymph # (Auto) 2.6, [place] # (Auto) 0.5, Eos # (Auto) 0.1, Baso # (Auto) 0.0, Sodium 139, Potassium 4.6, Chloride 109 H, Carbon Dioxide 22, Anion Gap 12.6, BUN 16, Creatinine 1.50 H, Estimated Creat Clear 28, Estimated GFR 34 L, Est GFR ( Amer) 41 L, Glucose 145 H, Calcium 9.1 I & O for Last 24 hours: Intake & Output 02/11/25 02/12/25 02/13/25 02/14/25 23:59 23:59 23:59 23:59 Intake Total 360 / 540 300 / 300 Output Total 800 / 800 450 / 450 Balance -440 / -260 -150 / -150 Weight 111.385 kg 115.53 kg Constitutional Constitutional: no acute distress and morbidly obese *Routine HEENT Exam Head: Present normocephalic and atraumatic ENT: Present mucous membranes moist *Routine Neck Exam Neck: Present supple, full ROM and normal carotid upstroke; Absent JVD, carotid bruit or lymphadenopathy *Routine Respiratory Exam Respiratory: Present CTA bilaterally, normal respiratory effort, able to speak in complete sentences and symmetric chest movement *Routine Cardiovascular Exam Cardiovascular: Present RRR, Normal S1 and Normal S2; Absent murmur or gallop *Routine Abdominal Exam Abdominal: Present soft and normoactive bowel sounds; Absent tenderness, distended or organomegaly *Routine Rectal Exam Patient deferred: visual exam *Routine Exam Patient deferred: external exam *Routine Extremities Exam Extremities: Present full ROM, pulses intact and normal capillary refill; Absent cyanosis, clubbing or edema *Routine Skin Exam Skin: Present intact and warm; Absent erythema *Routine Neurological Exam Neurological: Present alert, oriented X3 and CN II-XII intact; Absent sensory deficit or motor deficit Routine Psychiatric Exam Psychiatric: Present normal affect Results Data Completed and Pending Labs on day of discharge: Labs from last 24 hours 02/14/25 02/13/25 02/13/25 05:46 22:43 16:57 WBC 9.4 RBC 4.70 Hgb 13.9 Hct 42.6 MCV 90.6 MCH 29.6 MCHC 32.6 RDW 13.6 Plt Count 328 MPV 9.8 Neut % (Auto) 65.4 Lymph % (Auto) 27.2 [place] % (Auto) 5.6 Eos % (Auto) 1.4 Baso % (Auto) 0.4 Neut # (Auto) 6.2 Lymph # (Auto) 2.6 [place] # (Auto) 0.5 Eos # (Auto) 0.1 Baso # (Auto) 0.0 Activated Clotting Time Sodium 139 Potassium 4.6 Chloride 109 H Carbon Dioxide 22 Anion Gap 12.6 BUN 16 Creatinine 1.50 H Estimated Creat Clear 28 Estimated GFR 34 L Est GFR ( Amer) 41 L Glucose 145 H POC Glucose 108 99 Calcium 9.1 02/13/25 09:52 WBC RBC Hgb Hct MCV MCH MCHC RDW Plt Count MPV Neut % (Auto) Lymph % (Auto) [place] % (Auto) Eos % (Auto) Baso % (Auto) Neut # (Auto) Lymph # (Auto) [place] # (Auto) Eos # (Auto) Baso # (Auto) Activated Clotting Time > 400 H* Sodium Potassium Chloride Carbon Dioxide Anion Gap BUN Creatinine Estimated Creat Clear Estimated GFR Est GFR ( Amer) Glucose POC Glucose Calcium DS: Diagnosis Discharge Diagnosis (1) CAD (coronary artery disease): Status: Acute Code(s): I25.10 - Atherosclerotic heart disease of [place] coronary artery without angina pectoris (2) HFrEF (heart failure with reduced ejection fraction): Status: Acute Code(s): I50.20 - Unspecified systolic (congestive) heart failure Meds Home Medications and Allergies Home Medications ?Medication ?Instructions ?Recorded ?Confirmed ?Type aspirin 81 mg tablet,delayed 81 mg PO DAILY 10/25/23 03/31/25 History release warfarin 3 mg tablet 3 mg PO SUTUTHSA Blood Thinner 09/09/23 02/13/25 History dapagliflozin propanediol 10 mg 10 mg PO DAILY #90 tabs 05/23/24 02/13/25 Rx tablet (Farxiga) furosemide 20 mg tablet (Lasix) 20 mg PO DAILY PRN edema #14 tabs 05/25/24 02/13/25 Rx colestipol 1 gram tablet 1 g PO BID #60 tabs 10/26/24 02/13/25 Rx ferrous sulfate, dried 159 mg (45 159 mg PO DAILY 10/26/24 02/13/25 History mg iron) tablet,extended release (iron ER) blood sugar diagnostic (True #100 strips 01/19/25 02/13/25 Rx Metrix Glucose Test Strip) lancets 28 gauge (TRUEplus Lancets) #100 ea 01/19/25 02/13/25 Rx blood-glucose meter (True Metrix #1 ea 01/20/25 02/13/25 Rx Glucose Meter) carvedilol 6.25 mg tablet 6.25 mg PO BID #60 tabs 01/26/25 02/13/25 Rx sacubitril 24 mg-valsartan 26 mg 1 tab PO BID #60 tabs 01/26/25 02/13/25 Rx tablet (Entresto) cholecalciferol (vitamin D3) 25 25 mcg PO DAILY 02/13/25 02/13/25 History mcg (1,000 unit) tablet clopidogrel 75 mg tablet (Plavix) 75 mg PO DAILY 30 days #30 tabs 02/13/25 Rx ergocalciferol (vitamin D2) 1,250 1,250 mcg PO WEEKLY 02/13/25 02/13/25 History mcg (50,000 unit) capsule glimepiride 2 mg tablet 2 mg PO BID 02/13/25 02/13/25 History levocetirizine 5 mg tablet 5 mg PO DAILY 02/13/25 02/13/25 History pantoprazole 40 mg tablet,delayed 40 mg PO DAILY 02/13/25 02/13/25 History release semaglutide 0.25 mg or 0.5 mg (2 0.5 mg SQ WEEKLY 02/13/25 02/13/25 History mg/3 mL) subcutaneous pen injector (Ozempic) warfarin 3 mg tablet 1.5 mg PO MOWEFR 02/13/25 02/13/25 History atorvastatin 40 mg tablet 40 mg PO HS 30 days #30 tabs 02/14/25 Rx clopidogrel 75 mg tablet 75 mg PO DAILY 30 days #30 tabs 02/14/25 Rx New Prescriptions to Start Prescriptions: Nav Mariee clopidogrel [Plavix] Jean-Paul Riley clopidogrel Nav Boudreaux Allergies Allergy/AdvReac Type Severity Reaction Status Date / Time alendronate sodium (From Allergy Intermediate RASH Verified 02/07/25 07:58 Fosamax) metformin Allergy Rash Verified 02/07/25 07:58 lisinopril AdvReac Intermediate Cough Verified 02/07/25 07:58 Discharge Plan Disposition Patient Disposition: Home, Self-Care Condition: Fair Follow up Plan Follow up with: Josselin Gudino APRN [Primary Care Provider] - 02/22/25 8:20 am Jean-Paul Riley MD [Staff Physician] - 02/20/25 9:30 am Prescriptions/Medication Reconciliation: New clopidogrel [Plavix] 75 mg Tablet 75 mg PO DAILY 30 Days Qty: 30 6RF atorvastatin 40 mg Tablet 40 mg PO HS 30 Days Qty: 30 0RF clopidogrel 75 mg Tablet 75 mg PO DAILY 30 Days Qty: 30 0RF Continued furosemide [Lasix] 20 mg tablet 20 mg PO DAILY PRN (Reason: edema) Qty: 14 0RF iron 159 mg (45 mg iron) tablet extended release 159 mg PO DAILY colestipol 1 gram tablet 1 g PO BID Qty: 60 11RF Entresto 24-26 mg tablet 1 tab PO BID Qty: 60 2RF carvedilol 6.25 mg tablet 6.25 mg PO BID Qty: 60 3RF Rx Instructions: must administer with a meal/food dapagliflozin propanediol [Farxiga] 10 mg tablet 10 mg PO DAILY Qty: 90 3RF warfarin 3 mg tablet 3 mg PO SUTUTHSA aspirin 81 mg tablet,delayed release (DR/EC) 81 mg PO DAILY glimepiride 2 mg tablet 2 mg PO BID pantoprazole 40 mg tablet,delayed release (DR/EC) 40 mg PO DAILY Rx Instructions: TAKE ONE TABLET BY MOUTH ONCE A DAY ergocalciferol (vitamin D2) 1,250 mcg (50,000 unit) capsule 1,250 mcg PO WEEKLY Rx Instructions: TAKE ONE CAPSULE BY MOUTH ONCE EVERY WEEK levocetirizine 5 mg tablet 5 mg PO DAILY Rx Instructions: TAKE ONE TABLET BY MOUTH ONCE A DAY Ozempic 0.25 mg or 0.5 mg (2 mg/3 mL) pen injector 0.5 mg SQ WEEKLY Rx Instructions: INJECT 0.25 MG SUBCUTANEOUSLY ONCE WEEKLY FOR 4 WEEKS THEN INCREASE TO 0.5 MG ONCE A WEEK warfarin 3 mg tablet 1.5 mg PO MOWEFR cholecalciferol (vitamin D3) 25 mcg (1,000 unit) tablet 25 mcg PO DAILY Discontinued simvastatin 10 mg tablet 10 mg PO HS Rx Instructions: TAKE ONE TABLET BY MOUTH ONCE A DAY No Action (DME) True Metrix Glucose Test Strip Strip See Rx Instructions .ROUTE .COMPLEX Qty: 100 0RF Dose Instruction: CHECK SUGAR ONCE A DAY OR DIRECTED Rx Instructions: CHECK SUGAR ONCE A DAY OR DIRECTED (DME) lancets [TRUEplus Lancets] 28 gauge misc See Rx Instructions .ROUTE .COMPLEX Qty: 100 1RF Dose Instruction: CHECK SUGAR ONCE A DAY OR DIRECTED Rx Instructions: CHECK SUGAR ONCE A DAY OR DIRECTED (DME) blood-glucose meter [True Metrix Glucose Meter] Misc See Rx Instructions .ROUTE .COMPLEX Qty: 1 2RF Dose Instruction: CHECK SUGAR ONCE A DAY OR DIRECTED Rx Instructions: CHECK SUGAR ONCE A DAY OR DIRECTED Other Ambulatory Orders: Basic Metabolic Panel (Routine) Timeframe: 1 Week Facility: [facility] - Location: Laboratory Ordered By: Jean-Paul Riley Complete Blood Count Auto Diff (Routine) Timeframe: 1 Week Facility: [facility] - Location: Laboratory Ordered By: Jean-Paul Riley Problem Reconciliation Problems Reviewed?: Yes Patient Discharge Instructions ACTIVITY: Continue current activity DIET: continue same diet Patient Instructions: DI for Cardiac Catheterization, DI for Coronary Stenting, DI for Surgical Site Infection, DI for Moderate Sedation, Coumadin Vitamin K/ Diet Print Language: Ethiopian Providers Primary Care Provider: Josselin Gudino Provider: Jean-Paul Riley Attending Provider: Uriah Perkins
--- NOTE | 2025-02-14 10:56 | EXP.CARD.CON ---
History of Present Illness History of Present Illness Consult date: 02/14/25 Requesting physician: Nav Boudreaux Consult reason: known to you Chief complaint: CAD s/p stenting History of present illness: This is a 74-year-old white female who came to the hospital to undergo left cardiac catheterization. The patient had stenting to the left main x 1 and LAD x 2. She tolerated the procedure well. Due to her chronic kidney disease and complex procedure it was recommended that the patient stay overnight for evaluation of her renal function in the morning. Currently she denies any chest pain or pressure. She denies any shortness of breath or edema. She denies any fever, chills, nausea, vomiting, diarrhea, PND orthopnea. She states that she is ready to be discharged home. [facility] Disclaimer: The information contained in this section may have been updated after the patient was seen, as this information can be updated by other users. Medical History (Updated 02/14/25 @ 10:59 by Velma Hamm APRN) HLD (hyperlipidemia) SOBOE (shortness of breath on exertion) Atypical angina HFrEF (heart failure with reduced ejection fraction) Abnormal findings on diagnostic imaging of heart and coronary circulation Encounter for pre-operative cardiovascular clearance History of pulmonary embolism Osteopenia Hypertension Diabetes Chronic kidney disease CHF (congestive heart failure) Surgical History (Updated 02/14/25 @ 10:59 by Velma Hamm APRN) Status post coronary artery stent placement Hx of esophagogastroduodenoscopy Hx of colonoscopy with polypectomy Hx of hysterectomy Hx of appendectomy Hx of cholecystectomy Family History (Updated 02/13/25 @ 12:02 by Renetta Zhu RN) Other Cancer Social History (Updated 02/13/25 @ 12:02 by Renetta Zhu RN) Smoking Status: Never smoker second hand exposure: Yes alcohol intake: never substance use type: denies use current occupational status: retired Travel in the last 8 weeks: None household members: spouse housing: house current occupational exposures/hazards: No caffeine: Yes Review of Systems Review of Systems Review of systems:: pertinent systems reviewed and negative unless documented below Constitutional Constitutional: Reports system reviewed and no additional complaints, except as documented Eyes Eyes: Reports system reviewed and no additional complaints, except as documented ENT Ears, Nose, Mouth, and Throat: Reports system reviewed and no additional complaints, except as documented *Cardiovascular Cardiovascular: Reports system reviewed and no additional complaints, except as documented *Respiratory Respiratory: Reports system reviewed and no additional complaints, except as documented *Gastrointestinal Gastrointestinal: Reports system reviewed and no additional complaints, except as documented *Musculoskeletal Musculoskeletal: Reports system reviewed and no additional complaints, except as documented Integumentary/Breasts Skin/Breast: Reports system reviewed and no additional complaints, except as documented *Neurologic Neurologic: Reports system reviewed and no additional complaints, except as documented Psychiatric Psychiatric: Reports system reviewed and no additional complaints, except as documented Endocrine Endocrine: Reports system reviewed and no additional complaints, except as documented Hematologic/Lymphatic Hematologic/Lymphatic: Reports system reviewed and no additional complaints, except as documented Allergic/Immunologic Allergic/Immunologic: Reports system reviewed and no additional complaints, except as documented Exam Data for Last 24 hours Vital signs and Labs for Last 24 Hours: Temp Pulse Resp BP Pulse Ox O2 Del Method O2 Flow Rate 98.1 F 75 16 120/66 98 Room Air 2 02/14/25 08:00 02/14/25 08:00 02/14/25 08:00 02/14/25 08:00 02/14/25 08:00 02/14/25 09:00 02/14/25 04:00 Laboratory Results - last 24 hr 02/13/25 09:52: Activated Clotting Time > 400 H* 02/13/25 16:57: POC Glucose 99 02/13/25 22:43: POC Glucose 108 02/14/25 05:46: WBC 9.4, RBC 4.70, Hgb 13.9, Hct 42.6, MCV 90.6, MCH 29.6, MCHC 32.6, RDW 13.6, Plt Count 328, MPV 9.8, Neut % (Auto) 65.4, Lymph % (Auto) 27.2, [place] % (Auto) 5.6, Eos % (Auto) 1.4, Baso % (Auto) 0.4, Neut # (Auto) 6.2, Lymph # (Auto) 2.6, [place] # (Auto) 0.5, Eos # (Auto) 0.1, Baso # (Auto) 0.0, Sodium 139, Potassium 4.6, Chloride 109 H, Carbon Dioxide 22, Anion Gap 12.6, BUN 16, Creatinine 1.50 H, Estimated Creat Clear 28, Estimated GFR 34 L, Est GFR ( Amer) 41 L, Glucose 145 H, Calcium 9.1 I & O for Last 24 hours: Intake & Output 02/11/25 02/12/25 02/13/25 02/14/25 23:59 23:59 23:59 23:59 Intake Total 360 / 540 300 / 300 Output Total 800 / 800 450 / 450 Balance -440 / -260 -150 / -150 Weight 245 lb 9 oz 254 lb 11.2 oz Constitutional Constitutional: no acute distress and morbidly obese *Routine HEENT Exam Head: Present normocephalic and atraumatic ENT: Present mucous membranes moist *Routine Neck Exam Neck: Present supple, full ROM and normal carotid upstroke; Absent JVD, carotid bruit or lymphadenopathy *Routine Respiratory Exam Respiratory: Present CTA bilaterally, normal respiratory effort, able to speak in complete sentences and symmetric chest movement *Routine Cardiovascular Exam Cardiovascular: Present RRR, Normal S1 and Normal S2; Absent murmur or gallop *Routine Abdominal Exam Abdominal: Present soft and normoactive bowel sounds; Absent tenderness, distended or organomegaly *Routine Extremities Exam Extremities: Present full ROM, pulses intact and normal capillary refill; Absent cyanosis, clubbing or edema *Routine Skin Exam Skin: Present intact and warm; Absent erythema *Routine Neurological Exam Neurological: Present alert, oriented X3 and CN II-XII intact; Absent sensory deficit or motor deficit Routine Psychiatric Exam Psychiatric: Present normal affect Meds Home Medications and Allergies Home Medications ?Medication ?Instructions ?Recorded ?Confirmed ?Type aspirin 81 mg tablet,delayed 81 mg PO DAILY 09/09/23 02/13/25 History release warfarin 3 mg tablet 3 mg PO SUTUTHSA Blood Thinner 09/09/23 02/13/25 History dapagliflozin propanediol 10 mg 10 mg PO DAILY #90 tabs 05/23/24 02/13/25 Rx tablet (Farxiga) furosemide 20 mg tablet (Lasix) 20 mg PO DAILY PRN edema #14 tabs 05/25/24 02/13/25 Rx colestipol 1 gram tablet 1 g PO BID #60 tabs 10/26/24 02/13/25 Rx ferrous sulfate, dried 159 mg (45 159 mg PO DAILY 10/26/24 02/13/25 History mg iron) tablet,extended release (iron ER) blood sugar diagnostic (True #100 strips 01/19/25 02/13/25 Rx Metrix Glucose Test Strip) lancets 28 gauge (TRUEplus Lancets) #100 ea 01/19/25 02/13/25 Rx blood-glucose meter (True Metrix #1 ea 01/20/25 02/13/25 Rx Glucose Meter) carvedilol 6.25 mg tablet 6.25 mg PO BID #60 tabs 01/26/25 02/13/25 Rx sacubitril 24 mg-valsartan 26 mg 1 tab PO BID #60 tabs 01/26/25 02/13/25 Rx tablet (Entresto) cholecalciferol (vitamin D3) 25 25 mcg PO DAILY 02/13/25 02/13/25 History mcg (1,000 unit) tablet clopidogrel 75 mg tablet (Plavix) 75 mg PO DAILY 30 days #30 tabs 02/13/25 Rx ergocalciferol (vitamin D2) 1,250 1,250 mcg PO WEEKLY 02/13/25 02/13/25 History mcg (50,000 unit) capsule glimepiride 2 mg tablet 2 mg PO BID 02/13/25 02/13/25 History levocetirizine 5 mg tablet 5 mg PO DAILY 02/13/25 02/13/25 History pantoprazole 40 mg tablet,delayed 40 mg PO DAILY 02/13/25 02/13/25 History release semaglutide 0.25 mg or 0.5 mg (2 0.5 mg SQ WEEKLY 02/13/25 02/13/25 History mg/3 mL) subcutaneous pen injector (Ozempic) warfarin 3 mg tablet 1.5 mg PO MOWEFR 02/13/25 02/13/25 History atorvastatin 40 mg tablet 40 mg PO HS 30 days #30 tabs 02/14/25 Rx clopidogrel 75 mg tablet 75 mg PO DAILY 30 days #30 tabs 02/14/25 Rx New Prescriptions to Start Prescriptions: Nav Mariee clopidogrel [Plavix] Jean-Paul Riley clopidogrel Nav [place] Allergies Allergy/AdvReac Type Severity Reaction Status Date / Time alendronate sodium (From Allergy Intermediate RASH Verified 02/07/25 07:58 Fosamax) metformin Allergy Rash Verified 02/07/25 07:58 lisinopril AdvReac Intermediate Cough Verified 02/07/25 07:58 Assessment and Plan *Assessment and plan (1) CAD (coronary artery disease): Status: Acute Qualifiers: Associated angina: without angina Coronary Disease-Associated Artery/Lesion type: [place] artery [place] vs. transplanted heart: [place] heart Qualified Code(s): I25.10 - Atherosclerotic heart disease of [place] coronary artery without angina pectoris Category: Medical Code(s): I25.10 - Atherosclerotic heart disease of [place] coronary artery without angina pectoris (2) Status post coronary artery stent placement: Status: Acute Category: Surgical Code(s): Z95.5 - Presence of coronary angioplasty implant and graft (3) HFrEF (heart failure with reduced ejection fraction): Status: Acute Category: Medical Code(s): I50.20 - Unspecified systolic (congestive) heart failure (4) Hypertension: Status: Chronic Qualifiers: Hypertension type: essential hypertension Qualified Code(s): I10 - Essential (primary) hypertension Category: Medical Code(s): I10 - Essential (primary) hypertension (5) HLD (hyperlipidemia): Status: Acute Qualifiers: Hyperlipidemia type: mixed hyperlipidemia Qualified Code(s): E78.2 - Mixed hyperlipidemia Category: Medical Code(s): E78.5 - Hyperlipidemia, unspecified (6) Chronic kidney disease: Status: Chronic Qualifiers: Chronic kidney disease stage: stage 3 (moderate) Chronic kidney disease stage 3 subtype: stage 3b (GFR 30-44) Qualified Code(s): N18.32 - Chronic kidney disease, stage 3b Category: Medical Code(s): N18.9 - Chronic kidney disease, unspecified (7) Diabetes: Status: Chronic Qualifiers: Diabetes mellitus complication status: without complication Diabetes mellitus ocean transportation intermediary insulin use: without detention use Diabetes mellitus type: type 2 Qualified Code(s): E11.9 - Type 2 diabetes mellitus without complications Category: Medical Code(s): E11.9 - Type 2 diabetes mellitus without complications Plan Plan: 1. The patient presented to the hospital for left cardiac catheterization and had 1 stent placed to the left main artery and 2 stents placed to the LAD. She tolerated the procedure well. She will be on Plavix and aspirin for dual antiplatelet therapy. 2. The patient does have a history of multiple pulmonary emboli in the past. She is on Coumadin. She has been told that she will need to be on indefinite anticoagulation with Coumadin. She will triple therapy with Coumadin, aspirin and Plavix for 30 days. After 30 days she can stop aspirin and remain on Plavix and Coumadin. 3. Her coronary artery disease is stable. 4. Her blood pressure is well-controlled. Continue carvedilol. 5. Her LDL goal is less than 55. Her LDL is 99. Stop simvastatin. Start Lipitor 40 mg p.o. nightly. 6. The patient does have acute HFrEF. Her ejection fraction is known to be 45% on previous echocardiogram and left cardiac catheterization. Continue Entresto, Lasix, Farxiga, Coreg for HFrEF. She did have repeat echocardiogram this morning and results are currently pending. 7. The patient is diabetic. Recommend aggressive control of her diabetes. Will defer to the hospitalist. 8. The patient does have chronic kidney disease. Her creatinine is stable at 1.5 today. 9. No further recommendations at this time from a cardiac standpoint. The patient is stable for discharge home today from a cardiac standpoint. She will need to follow-up in cardiology clinic in 1 to 2 weeks on an outpatient basis. 10. The patient will need to be discharged on the following cardiac medications: Aspirin 81 mg daily, Lipitor 40 mg p.o. nightly, Coreg 6.25 mg p.o. twice daily, Plavix 75 mg daily, Coumadin as directed, Lasix 20 mg daily, Entresto 24/26 mg twice daily, and Farxiga 10 mg daily. Thank you for the opportunity to help participate in the care of this patient. All recommendations and orders are per Dr. Ricardo.
[2025-02-14] MEDS: WARFARIN 3MG TABLET 3 MG PO (11:21)
[2025-02-14 11:29] LABS: POC Glucose,Bedside 149 (70-110)
[2025-02-14 12:00] VITALS: PULSE 90
--- NOTE | 2025-02-15 10:40 | SW/DCPLANNER ---
Spoke with patient on the phone. patient stated that she is doing very well. Patient stated that she is aware of her upcoming appointments. Patient stated that she was able to get her new medicine picked up from clinic pharmacy. Patient stated that she has no concerns or questions at this time. Dee Hernandez
== END 2025-02-14 14:10 | disposition home or self-care (01) ==
LOC: 2ND 11:27
PROVIDERS: Admitting Provider Internal Medicine; PCP Family Medicine; Visit Provider Student in an Organized Health Care Education/Training Program
DX: I13.0 Hypertensive heart and chronic kidney disease with heart failure and stage 1 through stage 4 chronic kidney disease, or unspecified chronic kidney disease (principal); I50.20 Unspecified systolic (congestive) heart failure; R06.02 Shortness of breath; R93.1 Abnormal findings on diagnostic imaging of heart and coronary circulation; I25.118 Atherosclerotic heart disease of native coronary artery with other forms of angina pectoris; E78.2 Mixed hyperlipidemia; N18.32 Chronic kidney disease, stage 3b; E11.22 Type 2 diabetes mellitus with diabetic chronic kidney disease; Z88.8 Allergy status to other drugs, medicaments and biological substances; Z79.01 Long term (current) use of anticoagulants; Z79.84 Long term (current) use of oral hypoglycemic drugs; Z79.85 Long-term (current) use of injectable non-insulin antidiabetic drugs; Z79.899 Other long term (current) drug therapy; Z86.711 Personal history of pulmonary embolism; I77.1 Stricture of artery
CPT/HCPCS: 36252; 36415; 80048; 82962; 85025; 85347; 85610; 92928; 93306; 93458; 99152; 99153; C1725; C1760; C1769; C1874; C1894; C9600; G0378; J1200; J1644; J3010; Q9967

== ENCOUNTER 2025-02-20 10:21 | Outpatient (CLI) | payer MEDICARE, SELFPAY ==
[2025-02-20 11:29] LABS: Basophils % 0.5 % (0.1-2.0); Eosinophils # 0.3 K/mm3 (0.0-0.4); Eosinophils % 3.9 % (0.1-12.0); Hematocrit 43.1 % (37.0-47.0); Hemoglobin 13.7 g/dL (12.2-16.2); Lymphocytes # 2.7 K/mm3 (0.7-4.5); Lymphocytes % 31.6 % (10-50); Mean Corpuscular HGB Conc 31.8 g/dL (31.8-35.4); Mean Corpuscular Hemoglobin 29.3 pg (27.0-31.2); Mean Corpuscular Volume 92.3 fl (81-99); Mean Platelet Volume 10.2 fl (7.4-10.4); Monocytes # 0.5 K/mm3 (0.1-1.0); Monocytes % 5.6 % (1.7-9.3); Neutrophils % 58.2 % (37.0-80.0); Platelet Count 366 K/mm3 (142-424); Red Blood Count 4.67 M/mm3 (4.20-5.40); Red Cell Distribution Width 13.4 % (11.5-17.5); White Blood Count 8.6 K/mm3 (4.8-10.8)
[2025-02-20 12:12] LABS: Anion Gap 15.7 mEq/L (5-15); Blood Urea Nitrogen 16 mg/dl (7-17); Calcium 9.3 mg/dl (8.4-10.2); Carbon Dioxide 20 mmol/L (22.0-30.0); Chloride 109 mmol/L (98-107); Estimated Glomerular Filt Rate 34 ml/min (>60); GFR (African American) 41 ML/MIN (>60); Glucose 150 mg/dl (74-100); Potassium 4.7 mmoL/L (3.5-5.1); Sodium 140 mmol/L (136-145)
== END 2025-02-20 23:59 | disposition home or self-care (01) ==
LOC: LAB 10:22
PROVIDERS: PCP Family Medicine; Visit Provider Nurse Practitioner Family
DX: I25.10 Atherosclerotic heart disease of native coronary artery without angina pectoris (principal); D64.9 Anemia, unspecified; E11.9 Type 2 diabetes mellitus without complications
CPT/HCPCS: 36415; 80048; 85025

== ENCOUNTER 2025-03-02 19:08 | Emergency (ER) | payer MEDICARE, SELFPAY ==
[2025-03-02 19:47] VITALS: BP 126/65; PULSE 50; RESP 18; TEMP 37.1; O2SAT 100; BMI 36.9
[2025-03-02 19:49] VITALS: BP 89/64; PULSE 84; RESP 18; TEMP 37.2; O2SAT 98
--- NOTE | 2025-03-02 19:50 | ECG_ITS ---
APPROVED REPORT Exam: Resting ECG HR:82 bpm ECG Measurements Heart Rate 82 AXES NJ 145 P -4 QRSd 90 QRS 44 QT 379 T 46 QTc 417 Conclusion SINUS RHYTHM WITH FREQUENT VENTRICULAR PREMATURE COMPLEXES IN COUPLETS LOW QRS VOLTAGE IN PRECORDIAL LEADS [QRS DEFLECTION < 1.0 mV IN CHEST LEADS] No STEMI Electronically signed by : ALISHA ISBELL, 03/04/2025 00:12:07
--- NOTE | 2025-03-02 19:50 | XR_ITS ---
PROCEDURE INFORMATION: Exam: XR Chest Exam date and time: 03/02/2025 8:30 PM Age: 74 years old Clinical indication: Other: Chest pain TECHNIQUE: Imaging protocol: Radiologic exam of the chest. Views: 2 views. COMPARISON: CT ANGIO CHEST 01/02/2025 5:14 PM FINDINGS: Lungs: Unremarkable. No consolidation. Pleural spaces: Unremarkable. No pleural effusion. No pneumothorax. Heart/Mediastinum: Retrocardiac hiatal hernia. Normal heart size. Bones/joints: Unremarkable. IMPRESSION: 1. No acute cardiopulmonary process. 2. Hiatal hernia.
[2025-03-02 20:09] LABS: Basophils # 0.1 K/mm3 (0-0.2); Basophils % 0.5 % (0.1-2.0); Eosinophils # 0.2 K/mm3 (0.0-0.4); Eosinophils % 2.6 % (0.1-12.0); Hematocrit 47.1 % (37.0-47.0); Lymphocytes # 3.8 K/mm3 (0.7-4.5); Lymphocytes % 41.4 % (10-50); Mean Corpuscular HGB Conc 31.8 g/dL (31.8-35.4); Mean Corpuscular Hemoglobin 28.8 pg (27.0-31.2); Mean Corpuscular Volume 90.6 fl (81-99); Mean Platelet Volume 10.1 fl (7.4-10.4); Monocytes # 0.6 K/mm3 (0.1-1.0); Monocytes % 6.7 % (1.7-9.3); Neutrophils # 4.5 K/mm3 (1.8-7.8); Neutrophils % 48.6 % (37.0-80.0); Nucleated Red Blood Cells # 0 10^3/uL; Nucleated Red Blood Cells % 0 %; Platelet Count 383 K/mm3 (142-424); Red Cell Distribution Width 13.2 % (11.5-17.5); Red Cell Distribution Width-SD 44.2 fL; White Blood Count 9.2 K/mm3 (4.8-10.8)
[2025-03-02 20:29] LABS: Albumin Level 3.9 g/dl (3.5-5.0); Chloride 113 mmol/L (98-107); Potassium 4.5 mmoL/L (3.5-5.1); Sodium 139 mmol/L (136-145)
[2025-03-02 20:32] LABS: Alanine Aminotransferase 19 U/L (12-78); Albumin/Globulin Ratio 1.1 (1.1-1.8); Alkaline Phosphatase 129 U/L (38-126); Anion Gap 18.5 mEq/L (5-15); Aspartate Amino Transferase 35 U/L (14-36); Bilirubin,Total 0.6 mg/dl (0.2-1.3); Blood Urea Nitrogen 19 mg/dl (7-17); Calcium 9.1 mg/dl (8.4-10.2); Carbon Dioxide 12 mmol/L (22.0-30.0); Creatinine Clearance Estimated 55 mL/min (50-200); Estimated Glomerular Filt Rate 32 ml/min (>60); GFR (African American) 38 ML/MIN (>60); Globulin 3.5 g/dL (1.3-3.2); Glucose 132 mg/dl (74-100); Total Protein,Serum 7.4 g/dl (6.3-8.2)
[2025-03-02 20:41] LABS: Magnesium 1.9 mg/dl (1.6-2.3)
[2025-03-02 20:46] LABS: D-Dimer 0.49 ug/mL (0.0-0.5)
[2025-03-02 20:47] LABS: Troponin I < 0.01 ng/ml (0.00-0.034)
[2025-03-02 20:50] LABS: T4 (Thyroxine) 15.9 ug/dl (5.53-11.0)
[2025-03-02] MEDS: RINGERS SOLUTION,LACTATED 500 ML 999 ML IV (20:59)
[2025-03-02 21:03] LABS: Thyroid Stimulating Hormone 3.25 uIU/mL (0.465-4.68)
--- NOTE | 2025-03-02 21:35 | ECG_ITS ---
APPROVED REPORT Exam: Resting ECG HR:72 bpm ECG Measurements Heart Rate 72 AXES SC 158 P 38 QRSd 102 QRS 21 QT 415 T 30 QTc 439 Conclusion SINUS RHYTHM WITH OCCASIONAL VENTRICULAR PREMATURE COMPLEXES LOW QRS VOLTAGE IN PRECORDIAL LEADS [QRS DEFLECTION < 1.0 mV IN CHEST LEADS] No STEMI Electronically signed by : ALISHA ISBELL, 03/04/2025 00:12:54
--- NOTE | 2025-03-02 21:38 | HMH.EDGENADL ---
Discharge Plan Disposition Patient Disposition: Home, Self-Care Condition: Good Prescriptions Prescriptions: No Action furosemide [Lasix] 20 mg tablet 20 mg PO DAILY PRN (Reason: edema) Qty: 14 0RF iron 159 mg (45 mg iron) tablet extended release 159 mg PO DAILY colestipol 1 gram tablet 1 g PO BID Qty: 60 11RF Entresto 24-26 mg tablet 1 tab PO BID Qty: 60 2RF carvedilol 6.25 mg tablet 6.25 mg PO BID Qty: 60 3RF Rx Instructions: must administer with a meal/food famotidine 20 mg tablet 20 mg PO DAILY Qty: 30 2RF dapagliflozin propanediol [Farxiga] 10 mg tablet 0RF losartan 25 mg tablet 25 mg PO DAILY (DME) True Metrix Glucose Test Strip Strip See Rx Instructions .ROUTE .COMPLEX Qty: 100 0RF Dose Instruction: CHECK SUGAR ONCE A DAY OR DIRECTED Rx Instructions: CHECK SUGAR ONCE A DAY OR DIRECTED (DME) lancets [TRUEplus Lancets] 28 gauge misc See Rx Instructions .ROUTE .COMPLEX Qty: 100 1RF Dose Instruction: CHECK SUGAR ONCE A DAY OR DIRECTED Rx Instructions: CHECK SUGAR ONCE A DAY OR DIRECTED (DME) blood-glucose meter [True Metrix Glucose Meter] Misc See Rx Instructions .ROUTE .COMPLEX Qty: 1 2RF Dose Instruction: CHECK SUGAR ONCE A DAY OR DIRECTED Rx Instructions: CHECK SUGAR ONCE A DAY OR DIRECTED dapagliflozin propanediol [Farxiga] 10 mg tablet 10 mg PO DAILY Qty: 90 3RF warfarin 3 mg tablet 3 mg PO SUTUTHSA aspirin 81 mg tablet,delayed release (DR/EC) 81 mg PO DAILY glimepiride 2 mg tablet 2 mg PO BID pantoprazole 40 mg tablet,delayed release (DR/EC) 40 mg PO DAILY Rx Instructions: TAKE ONE TABLET BY MOUTH ONCE A DAY ergocalciferol (vitamin D2) 1,250 mcg (50,000 unit) capsule 1,250 mcg PO WEEKLY Rx Instructions: TAKE ONE CAPSULE BY MOUTH ONCE EVERY WEEK levocetirizine 5 mg tablet 5 mg PO DAILY Rx Instructions: TAKE ONE TABLET BY MOUTH ONCE A DAY Ozempic 0.25 mg or 0.5 mg (2 mg/3 mL) pen injector 0.5 mg SQ WEEKLY Rx Instructions: INJECT 0.25 MG SUBCUTANEOUSLY ONCE WEEKLY FOR 4 WEEKS THEN INCREASE TO 0.5 MG ONCE A WEEK warfarin 3 mg tablet 1.5 mg PO MOWEFR cholecalciferol (vitamin D3) 25 mcg (1,000 unit) tablet 25 mcg PO DAILY atorvastatin 40 mg Tablet 40 mg PO HS 30 Days Qty: 30 0RF clopidogrel 75 mg Tablet 75 mg PO DAILY 30 Days Qty: 30 0RF Referrals Follow up/Referrals: Josselin Gudino APRN [Primary Care Provider] - See instructions Darrius Laboy II, MD [Staff Physician] - See instructions Jean-Paul Riley MD [Staff Physician] - See instructions Radhames Ricardo MD [Staff Physician] - See instructions Activity Restrictions/Add. Instructions Additional Instructions/Restrictions: You were evaluated in the emergency department today. Please continue following up closely with primary care as well as with cardiology and with GI. Return to the emergency department right away for new or worsening symptoms. Clinical Impressions Clinical Impression: Diarrhea, Palpitations, Dehydration, Frequent PVCs Instructions Patient Instructions: Premature Ventricular Beats, DI for Dehydration -- Adult, DI for Diarrhea and Traveler's Diarrhea -- Adult, DI for Palpitations Print Language Print Language: Macedonian Discharge ED Provider: Christine Goff General Adult HPI General Chief complaint: Arrhythmia/Palpitations Stated complaint: fast Heart rate Time Seen by Provider: 03/02/25 20:27 Mode of Arrival: Ambulatory Source of Information: Patient Description of Symptoms (Recalled from ER Triage Doc. by RN): Pt states she had 3 heart stents placed 2 weeks ago. today started to feel like she was having palpitations, heaviness in her chest, broke out in a cold sweat. History of Present Illness HPI narrative: This patient is a 74-year-old female with a history of CAD status post stenting 2 weeks ago, CHF, hypertension hyperlipidemia, type 2 diabetes, CKD, chronic anemia presented to the emergency department for evaluation of concern for palpitations. Patient states that she has been having palpitations and heaviness in her chest intermittently, but worse today. She notes that she broke out in a cold sweat. She states she thinks it is because she is dehydrated because she has had diarrhea for weeks now. She notes she is been seen multiple times for this by primary care but nothing seems to help. Diarrhea is nonbloody, emesis nonbloody nonbilious. No abdominal pain associated with this. Related Data Home Medications ?Medication ?Instructions ?Recorded ?Confirmed aspirin 81 mg tablet,delayed 81 mg PO DAILY 09/09/23 02/22/25 release warfarin 3 mg tablet 3 mg PO SUTUTHSA Blood Thinner 09/09/23 02/22/25 ferrous sulfate, dried 159 mg (45 159 mg PO DAILY 10/26/24 02/22/25 mg iron) tablet,extended release (iron ER) cholecalciferol (vitamin D3) 25 25 mcg PO DAILY 02/13/25 02/22/25 mcg (1,000 unit) tablet ergocalciferol (vitamin D2) 1,250 1,250 mcg PO WEEKLY 02/13/25 02/22/25 mcg (50,000 unit) capsule glimepiride 2 mg tablet 2 mg PO BID 02/13/25 02/22/25 levocetirizine 5 mg tablet 5 mg PO DAILY 02/13/25 02/22/25 pantoprazole 40 mg tablet,delayed 40 mg PO DAILY 02/13/25 02/22/25 release semaglutide 0.25 mg or 0.5 mg (2 0.5 mg SQ WEEKLY 02/13/25 02/22/25 mg/3 mL) subcutaneous pen injector (Ozempic) warfarin 3 mg tablet 1.5 mg PO MOWEFR 02/13/25 02/22/25 losartan 25 mg tablet 25 mg PO DAILY 02/20/25 02/22/25 Previous Rx's ?Medication ?Instructions ?Recorded furosemide 20 mg tablet (Lasix) 20 mg PO DAILY PRN edema #14 tabs 05/25/24 colestipol 1 gram tablet 1 g PO BID #60 tabs 10/26/24 blood sugar diagnostic (True #100 strips 01/19/25 Metrix Glucose Test Strip) lancets 28 gauge (TRUEplus Lancets) #100 ea 01/19/25 blood-glucose meter (True Metrix #1 ea 01/20/25 Glucose Meter) carvedilol 6.25 mg tablet 6.25 mg PO BID #60 tabs 01/26/25 sacubitril 24 mg-valsartan 26 mg 1 tab PO BID #60 tabs 01/26/25 tablet (Entresto) atorvastatin 40 mg tablet 40 mg PO HS 30 days #30 tabs 02/14/25 clopidogrel 75 mg tablet 75 mg PO DAILY 30 days #30 tabs 02/14/25 dapagliflozin propanediol 10 mg 10 mg PO DAILY #90 tabs 02/20/25 tablet (Farxiga) famotidine 20 mg tablet 20 mg PO DAILY #30 tabs 02/22/25 Allergies Allergy/AdvReac Type Severity Reaction Status Date / Time alendronate sodium (From Allergy Intermediate RASH Verified 02/22/25 08:35 Fosamax) metformin Allergy Rash Verified 02/22/25 08:35 lisinopril AdvReac Intermediate Cough Verified 02/22/25 08:35 PFSH PFS Disclaimer: The information contained in this section may have been updated after the patient was seen, as this information can be updated by other users. Medical History CAD in [place] artery Screening for malignant neoplasm of colon History of GI bleed HLD (hyperlipidemia) SOBOE (shortness of breath on exertion) Atypical angina HFrEF (heart failure with reduced ejection fraction) Abnormal findings on diagnostic imaging of heart and coronary circulation Encounter for pre-operative cardiovascular clearance History of pulmonary embolism Osteopenia Hypertension Diabetes Chronic kidney disease CHF (congestive heart failure) Surgical History Stented coronary artery History of cardiac cath Status post coronary artery stent placement Hx of esophagogastroduodenoscopy Hx of colonoscopy with polypectomy Hx of hysterectomy Hx of appendectomy Hx of cholecystectomy Family History Other Cancer Social History Smoking Status: Never smoker second hand exposure: Yes alcohol intake: never substance use type: denies use current occupational status: retired Travel in the last 8 weeks: None household members: spouse housing: house current occupational exposures/hazards: No caffeine: Yes Have you lived/traveled outside US in past 30 days?: No Contact w/someone who lives/traveled outside US past 30 days?: No Exposure to someone with infectious disease in past 14 days?: No Do you have a fever (greater than 100.4 F or 38 C)?: No Have you tested positive for COVID-19: No Exposed to someone with COVID-19 in past 14 days?: No Do you have a sore throat?: No Do you have a cough?: No Do you have any weakness?: No Do you have any diarrhea?: No Are you experiencing any unusual bleeding?: No Do you have any muscle aches/pain?: No Do you have any abdominal pain?: No Are you experiencing loss of taste or smell?: No Other Medical History Have you received the Flu Vaccine for this season: No Have you received the Pneumonia Vaccine: Yes ROS Obtained: Yes All systems reviewed & no additional complaints except as documented Physical Exam General General appearance: alert, in no apparent distress and obese Head Head exam: atraumatic and normocephalic Eye Eye exam: Present normal appearance, PERRL and EOMI ENT ENT exam: Present normal exam, normal oropharynx, mucous membranes moist and normal external ear exam Neck Neck exam: Present normal inspection, full ROM and trachea midline; Absent tenderness Chest Chest inspection: Present normal inspection and symmetric chest wall rise; Absent tenderness Respiratory Respiratory exam: Present normal lung sounds bilaterally; Absent respiratory distress, wheezes, stridor or accessory muscle use Cardiovascular Cardiovascular exam: Present regular rate, normal rhythm and other (Frequent PVCs) Abdominal Exam Abdominal exam: Present soft; Absent distention, tenderness or guarding Extremities Exam Extremities exam: Present normal inspection, full ROM and normal capillary refill; Absent tenderness or edema Back Exam Back exam: Present normal inspection and full ROM; Absent tenderness Neurological Exam Neurological exam: Present alert, oriented X3, CN II-XII intact and normal gait; Absent motor sensory deficit Psychiatric Psychiatric exam: Present normal affect and normal mood Skin Skin exam: Present warm and dry Medical Decision Making Medical Records Medical records reviewed: Yes I reviewed the patient's medical records. Screening: Per USPSTF and CDC recommendations, given the prevalence of disease in our region, it is our hospital?s policy to screen for HIV and viral Hepatitis for all patients aged 18 and over and those with ongoing risk factors. Carlito Inquiry Pt receiving controlled substance: No Vital Signs: 03/02/25 19:47 03/02/25 19:49 03/02/25 23:52 Temperature 98.7 F 98.9 F 98.9 F Temperature Source Oral Temporal Artery Scan Pulse Rate 84 74 Pulse Rate [Right] 50 L Respiratory Rate 18 18 18 Blood Pressure 89/64 L 118/65 Blood Pressure [Right Arm] 126/65 Blood Pressure Mean [Right Arm] 85 Blood Pressure Source [Right Arm] Automatic Cuff Blood Pressure Position [Right Arm] Sitting 02 Sat by Pulse Oximetry 100 98 Oxygen Delivery Method Room Air Room Air Room Air Lab Data Lab results reviewed: Yes I reviewed the patient's lab results. Lab Results 03/02/25 19:59: WBC 9.2, RBC 5.20, Hgb 15.0, Hct 47.1 H, MCV 90.6, MCH 28.8, MCHC 31.8, RDW 13.2, Plt Count 383, MPV 10.1, Neut % (Auto) 48.6, Lymph % (Auto) 41.4, [place] % (Auto) 6.7, Eos % (Auto) 2.6, Baso % (Auto) 0.5, Neut # (Auto) 4.5, Lymph # (Auto) 3.8, [place] # (Auto) 0.6, Eos # (Auto) 0.2, Baso # (Auto) 0.1, Sodium 139, Potassium 4.5, Chloride 113 H, Carbon Dioxide 12 L, Anion Gap 18.5 H, BUN 19 H, Creatinine 1.60 H, Estimated Creat Clear 55, Estimated GFR 32 L, Est GFR ( Amer) 38 L, Glucose 132 H, Calcium 9.1, Magnesium 1.9, Total Bilirubin 0.6, AST 35, ALT 19, Alkaline Phosphatase 129 H, Troponin I < 0.01, Total Protein 7.4, Albumin 3.9, Globulin 3.5 H, Albumin/Globulin Ratio 1.1, TSH 3.25, Thyroxine (T4) 15.9 H 03/02/25 20:22: D-Dimer 0.49 03/02/25 22:13: Troponin I < 0.01 03/02/25 19:59 03/02/25 19:59 Orders (Tests/Meds): ED MEDICATIONS Discontinued Medications Generic Name Dose Route Start Last Admin Trade Name Freq PRN Reason Stop Dose Admin Lactated Ringer's 500 mls @ 999 mls/hr 03/02/25 20:57 03/02/25 20:59 Lactated Ringer's 500ml IV 03/02/25 21:27 999 mls/hr .Q31M ONE Administration Lactated Ringer's 1,000 mls @ 999 mls/hr 03/02/25 21:45 03/02/25 21:54 Lactated Ringer's 1000 Ml Bag IV 03/02/25 22:45 999 mls/hr .Q1H1M ONE Administration ORDERS Category Date Time Status XR chest 2V Stat Exams 03/02/25 19:50 Completed Complete Blood Count Auto Diff Stat Lab 03/02/25 19:59 Completed Comprehensive Metabolic Panel Stat Lab 03/02/25 19:59 Completed D-Dimer Stat Lab 03/02/25 20:22 Completed MAG [Magnesium] Stat Lab 03/02/25 19:59 Completed T4 (Thyroxine) Stat Lab 03/02/25 19:59 Completed TSH [Thyroid Stimulating Hormone] Stat Lab 03/02/25 19:59 Completed Troponin I Q3H Lab 03/02/25 22:13 Completed Troponin I Stat Lab 03/02/25 19:59 Completed ECG Data Tracing #1: I reviewed this ECG and interpreted as documented below: Sinus rhythm with very frequent PVCs. No acute STEMI ECG initial impression date: 03/02/25 ECG initial impression time: 19:54 Tracing #2: I reviewed this ECG and interpreted as documented below: Normal sinus rhythm with a ventricular to 72 bpm. PVC noted. No acute STEMI. Normal intervals ECG initial impression date: 03/02/25 ECG initial impression time: 21:37 Medical Decision Narrative: In summary, this patient is a 74-year-old female presenting to the Emergency Department for evaluation of palpitations. She notes that she has had chronic diarrhea for which she is following up outpatient and she thinks dehydration is the cause. Differential diagnoses considered include but are not limited to hydration, electrolyte derangements, dysrhythmia, ACS. Ruling out the most morbid conditions drove assessment. It should be noted patient's history includes hypertension, hyperlipidemia, type 2 diabetes, CKD, CHF, CAD which they or may not be at goal therapy. This complicates all aspects of care by increasing patient's risk for morbidity. I reviewed patient's past medical records and noted recent cardiac catheterization with stenting 2 weeks ago. On exam, the patient is lying in bed in no acute distress with normal vitals on cardiac telemetry. She is throwing frequent PVCs but otherwise no notable dysrhythmia on telemetry or on EKG obtained. Workup included CBC, CMP, troponin, D-dimer, magnesium, phosphorus, TSH, T4, EKG, chest x-ray. She was given initially a small bolus of IV fluids. I independently interpreted chest x-ray prior to the radiologist read and noted no focal consolidation, no pulmonary edema. Please see their read for final interpretation. Labs were obtained that demonstrated concerns for dehydration based on chemistry with mildly elevated creatinine from her baseline, elevated BUN, elevated anion gap. She overall looks hemoconcentrated. Troponins negative x 2.. She does have a very mildly elevated T4 with normal TSH. Advise that she follow-up closely with primary care for this. On reassessment, patient had significant improvement after administration of IV fluids. She had less frequent PVCs. She states she is feeling a lot better and vitals remain normal on cardiac telemetry. I had shared decision-making with her and she elects to go home to follow-up closely with GI and primary care for further evaluation of her diarrhea as well as with cardiology for her palpitations and frequent PVCs. Strict return precautions were given Critical Care Critical Care Time Critical Care Time: No
[2025-03-02] MEDS: LACTATED RINGERS 1000ML 1,000 ML 999 ML IV (21:54)
[2025-03-02 22:48] LABS: Troponin I < 0.01 ng/ml (0.00-0.034)
[2025-03-02 23:52] VITALS: BP 118/65; PULSE 74; RESP 18; TEMP 37.2; O2SAT 100
== END 2025-03-02 23:53 | disposition home or self-care (01) ==
PROVIDERS: Emergency Provider Emergency Medicine; PCP Family Medicine
DX: R07.89 Other chest pain (principal); R00.2 Palpitations; E86.0 Dehydration; I49.3 Ventricular premature depolarization; R19.7 Diarrhea, unspecified
CPT/HCPCS: 71046; 80053; 83735; 84436; 84443; 84484; 85025; 85378; 93005; 96360; 96361; 99285; J7120

== ENCOUNTER 2025-03-06 11:06 | Outpatient (CLI) | payer MEDICARE, SELFPAY ==
[2025-03-06 11:15] LABS: Adenovirus F 40/41, stool Not Detected (NotDetected); Astrovirus Not Detected (NotDetected); Campylobacter Not Detected (NotDetected); Clostridium Difficile A/B, PCR Not Detected (NotDetected); Cryptosporidium Not Detected (NotDetected); Cyclospora Cayetanesis Not Detected (NotDetected); Entamoeba histolytica Not Detected (NotDetected); Enteroaggregative E coli Not Detected (NotDetected); Enteropathogenic E coli Not Detected (NotDetected); Enterotoxigenic E coli Not Detected (NotDetected); Giardia lamblia Not Detected (NotDetected); Norovirus Not Detected (NotDetected); Plesimonas Shigalloides, PCR Not Detected (NotDetected); Rotavirus A Not Detected (NotDetected); Salmonella, PCR Not Detected (NotDetected); Sapovirus Not Detected (NotDetected); Shiga-like toxin E coli Not Detected (NotDetected); Shigella Enterovasive E coli Not Detected (NotDetected); Vibrio Cholerae Not Detected (NotDetected); Vibrio, PCR Not Detected (NotDetected); Yersinia Entercolitica, PCR Not Detected (NotDetected)
[2025-03-06 12:41] LABS: INR 5.04 (0.9-1.1); Prothrombin Time 48.1 seconds (10.1-12.5)
== END 2025-03-06 23:59 | disposition home or self-care (01) ==
LOC: ACC 11:07
PROVIDERS: Internal Medicine Gastroenterology; Internal Medicine Medical Oncology; PCP Family Medicine; Visit Provider Student in an Organized Health Care Education/Training Program
DX: R19.7 Diarrhea, unspecified (principal); Z86.711 Personal history of pulmonary embolism
CPT/HCPCS: 36415; 81240; 85610; 87045; 87506; 93225; 93227

== ENCOUNTER 2025-03-08 11:10 | Outpatient (CLI) | payer MEDICARE, SELFPAY | END 2025-03-08 23:59 | disposition home or self-care (01) | LOC: RT 11:11 | PROVIDERS: PCP Family Medicine; Visit Provider Nurse Practitioner Family | DX: R00.2 Palpitations (principal); I11.0 Hypertensive heart disease with heart failure; I50.9 Heart failure, unspecified | CPT/HCPCS: 93270 ==

== ENCOUNTER 2025-03-13 11:14 | Outpatient (CLI) | payer MEDICARE, SELFPAY ==
[2025-03-13 12:15] LABS: INR 5.47 (0.9-1.1); Prothrombin Time 51.8 seconds (10.1-12.5)
[2025-03-13 12:27] LABS: PHA INR Fingerstick 5.1 (0.9-1.1)
== END 2025-03-13 12:29 ==
LOC: ACC 11:14
PROVIDERS: Student in an Organized Health Care Education/Training Program; PCP Family Medicine; Visit Provider Family Medicine
DX: Z79.01 Long term (current) use of anticoagulants (principal); Z86.711 Personal history of pulmonary embolism
CPT/HCPCS: 36415; 85610; 99211; G0463

== ENCOUNTER 2025-03-20 11:25 | Outpatient (CLI) | payer MEDICARE, SELFPAY ==
[2025-03-20 13:27] LABS: PHA INR Fingerstick 2.4 (0.9-1.1)
[2025-03-20 18:18] LABS: Basophils # 0.1 K/mm3 (0-0.2); Basophils % 0.6 % (0.1-2.0); Eosinophils # 0.3 Kmm3 (0.0-0.4); Eosinophils % 3.8 % (0.1-12.0); Hematocrit 43.4 % (37.0-47.0); Hemoglobin 13.5 g/dL (12.2-16.2); Lymphocytes # 3.1 K/mm3 (0.7-4.5); Lymphocytes % 35.5 % (10-50); Mean Corpuscular HGB Conc 31.1 g/dL (31.8-35.4); Mean Corpuscular Hemoglobin 28.8 pg (27.0-31.2); Mean Corpuscular Volume 92.5 fl (81-99); Mean Platelet Volume 10.3 fl (7.4-10.4); Monocytes # 0.5 K/mm3 (0.1-1.0); Neutrophils # 4.7 K/mm3 (1.8-7.8); Neutrophils % 53.9 % (37.0-80.0); Nucleated Red Blood Cells # 0 10^3/uL; Nucleated Red Blood Cells % 0 %; Platelet Count 346 K/mm3 (142-424); Red Blood Count 4.69 M/mm3 (4.20-5.40); Red Cell Distribution Width 13.7 % (11.5-17.5); Red Cell Distribution Width-SD 46.7 fL; White Blood Count 8.8 K/mm3 (4.8-10.8)
[2025-03-20 20:10] LABS: Albumin Level 3.5 g/dl (3.5-5.0); Chloride 113 mmol/L (98-107); Sodium 139 mmol/L (136-145)
[2025-03-20 20:11] LABS: Potassium 4.3 mmoL/L (3.5-5.1)
[2025-03-20 20:13] LABS: Alanine Aminotransferase 13 U/L (12-78); Anion Gap 11.3 mEq/L (5-15); Aspartate Amino Transferase 16 U/L (14-36); Blood Urea Nitrogen 15 mg/dl (7-17); Carbon Dioxide 19 mmol/L (22.0-30.0); Estimated Glomerular Filt Rate 34 ml/min (>60); GFR (African American) 41 ML/MIN (>60)
[2025-03-20 20:14] LABS: Albumin/Globulin Ratio 1.3 (1.1-1.8); Alkaline Phosphatase 141 U/L (38-126); Bilirubin,Total 0.6 mg/dl (0.2-1.3); Globulin 2.7 g/dL (1.3-3.2); Glucose 125 mg/dl (74-100); Total Protein,Serum 6.2 g/dl (6.3-8.2)
== END 2025-03-20 13:42 ==
LOC: ACC 11:26
PROVIDERS: PCP Family Medicine; Visit Provider Student in an Organized Health Care Education/Training Program
DX: Z79.01 Long term (current) use of anticoagulants (principal); Z86.711 Personal history of pulmonary embolism
CPT/HCPCS: 80053; 85025; 85610; 99211; G0463

== ENCOUNTER 2025-03-20 12:07 | Outpatient (CLI) | payer MEDICARE, SELFPAY ==
--- OUTSIDE RECORDS SUMMARY | 2025-05-07 15:18 | XMS_ITS | Clinical Summary ---
Author Organization [facility] Address [address] [place] [address] Care Team Providers Care Boring Machine Feeder Name Role Phone Seema Tapia Primary Care Provider [phone] Allergies Active Allergy Reactions Criticality Noted Date [...] MG tablet 07/18/2021 Active ergocalciferol 1.25 MG (61005 UT) capsule 04/28/2022 Active cholecalciferol (Vitamin D3) [...] series) 2010 [facility]-Diabetes: Hemoglobin A1C 07/03/2020 01/04/2020 [id number] Vaccine ( season) 2024 09/25/2021, 03/29/2021 [facility]-Influenza [...] <6.0% Children and Adolescents <7.5% . Source: [place] [employer]. Standards of medical care in diabetes, 2017. Diabetes Care.2017:40 (suppl 1):S1-S135. . HbA1c assay performed by an ion-exchange chromatography method that is certified traceable to the DCCT. 01/04/2020 1:12 AM EST 01/04/2020 1:27 AM EST Stephanie Norris MD LAB BLOOD ORDERABLES Final R esult SUNQUEST from Last 3 Months or Most Recently Relevant to Health Maintenance Insurance [facility] MEDICARE Care Teams Boring Machine Feeder Relationship Specialty Start Date End Date Seema Tapia PA [address] [place] [address] PCP - General 03/29/21
--- OUTSIDE RECORDS SUMMARY | 2025-05-07 15:18 | XMS_ITS ---
Author Organization Unknown Plan of Treatment Description Planned Activity Planned Timing - Telephone encounter Sep 14, 2024 Patient Care team information Name Category Status Period Participants - - Proposed period not known -
--- OUTSIDE RECORDS SUMMARY | 2025-05-07 15:18 | XMS_ITS | Encounter Summary ---
Author Organization [facility] Address [address] [place] [address] Care Team Providers Care Rock Splitter Name Role Phone Seema Tapia Primary Care Provider [phone] Encounter Details Date Type Department Care Team [...] documented as of this encounter Care Teams Rock Splitter Relationship Specialty Start Date End Date Seema Tapia PA [address] [place] [address] PCP - General 03/29/21 documented as of this encounter
== END 2025-03-20 23:59 | disposition home or self-care (01) ==
LOC: LAB 05-07 15:17
PROVIDERS: PCP Family Medicine; Visit Provider Family Medicine
DX: Z00.00 Encounter for general adult medical examination without abnormal findings (principal)
CPT/HCPCS: 80053; 85025

== ENCOUNTER 2025-03-27 10:58 | Outpatient (CLI) | payer MEDICARE, SELFPAY ==
[2025-03-27 11:35] LABS: PHA INR Fingerstick 2.6 (0.9-1.1)
== END 2025-03-27 11:47 ==
LOC: ACC 10:58
PROVIDERS: PCP Family Medicine; Visit Provider Family Medicine
DX: Z79.01 Long term (current) use of anticoagulants (principal); Z86.718 Personal history of other venous thrombosis and embolism
CPT/HCPCS: 85610; 99211; G0463

== ENCOUNTER 2025-04-06 10:30 | Day surgery (SDC) | payer MEDICARE, SELFPAY ==
[2025-04-04 11:31] VITALS: BMI 36.3
[2025-04-06 11:17] VITALS: BP 118/74; PULSE 80; RESP 17; TEMP 36.4; O2SAT 98
[2025-04-06] MEDS: LACTATED RINGERS 1000ML 1,000 ML 50 ML IV (11:30)
--- NOTE | 2025-04-06 11:46 | EXP.ANES.CKL ---
[facility] Disclaimer: The information contained in this section may have been updated after the patient was seen, as this information can be updated by other users. Medical History Encounter for pre-operative cardiovascular clearance Abnormal findings on diagnostic imaging of heart and coronary circulation Atypical angina CAD in [place] artery Screening for malignant neoplasm of colon History of GI bleed HLD (hyperlipidemia) SOBOE (shortness of breath on exertion) HFrEF (heart failure with reduced ejection fraction) History of pulmonary embolism Osteopenia Hypertension Diabetes Chronic kidney disease CHF (congestive heart failure) Surgical History Stented coronary artery History of cardiac cath Status post coronary artery stent placement Hx of esophagogastroduodenoscopy Hx of colonoscopy with polypectomy Hx of hysterectomy Hx of appendectomy Hx of cholecystectomy Family History Other Cancer Family history of blood clots Heart disease Hyperlipidemia Hypertension Social History Smoking Status: Never smoker second hand exposure: Yes alcohol intake: never substance use type: denies use current occupational status: retired Travel in the last 8 weeks?: None household members: spouse housing: house current occupational exposures/hazards: No caffeine: Yes Have you lived/traveled outside [place] in past 30 days?: No Contact w/someone who lives/traveled outside US past 30 days?: No Exposure to someone with infectious disease in past 14 days?: No Do you have a fever (greater than 100.4 F or 38 C)?: No Have you tested positive for COVID-19?: No Exposed to someone with COVID-19 in past 14 days?: No Do you have a sore throat?: No Do you have a cough?: No Do you have any weakness?: No Do you have any diarrhea?: No Are you experiencing any unusual bleeding?: No Do you have any muscle aches/pain?: No Do you have any abdominal pain?: No Are you experiencing loss of taste or smell?: No [facility] Anesthesia Checklist Patient Identification Patient Identification: Arm Band and Verbal (Name & ) Structural Data Admitted From: Home Planned Operative Procedure/s: colonoscopy Verified Documents: Surgical Consent NPO Status Verified Time NPO: 00:00 Chart Verification Results Verified: ECG Additional verifications Anesthesia Reactions: No Airway Assessment Dentition: Edentulous Neurological Assessment Level of Consciousness: Awake, Alert and Appropriate Hx Seizures: No Numbness or tingling in extremities: No Anesthesia Plan Anesthesia Risk discussed: Yes Anesthesia Plan: Verified ASA Class: III Anesthesia Type: MAC
--- NOTE | 2025-04-06 12:30 | EXP.HP ---
History of Present Illness *Admission Date: 04/06/25 *Reason for visit:: Urgency/diarrhea, gradual change in bowel habits, history of polyps *History of present illness: Mrs. Thomas is a 74-year-old female who is here for diagnostic colonoscopy secondary to diarrhea, urgency and gradual change in bowel habits. She also has a history of polyps.. The examination is deemed medically necessary for diagnostic colonoscopy. The patient has been seen, interviewed and examined prior to the procedure by both myself and the anesthesia provider. [facility] Disclaimer: The information contained in this section may have been updated after the patient was seen, as this information can be updated by other users. Medical History (Updated 04/06/25 @ 12:32 by Darrius Laboy II, MD) Encounter for pre-operative cardiovascular clearance Abnormal findings on diagnostic imaging of heart and coronary circulation Atypical angina CAD in [place] artery Screening for malignant neoplasm of colon History of GI bleed HLD (hyperlipidemia) SOBOE (shortness of breath on exertion) HFrEF (heart failure with reduced ejection fraction) History of pulmonary embolism Osteopenia Hypertension Diabetes Chronic kidney disease CHF (congestive heart failure) Surgical History Stented coronary artery History of cardiac cath Status post coronary artery stent placement Hx of esophagogastroduodenoscopy Hx of colonoscopy with polypectomy Hx of hysterectomy Hx of appendectomy Hx of cholecystectomy Family History Other Cancer Family history of blood clots Heart disease Hyperlipidemia Hypertension Social History Smoking Status: Never smoker second hand exposure: Yes alcohol intake: never substance use type: denies use current occupational status: retired Travel in the last 8 weeks?: None household members: spouse housing: house current occupational exposures/hazards: No caffeine: Yes Have you lived/traveled outside US in past 30 days?: No Contact w/someone who lives/traveled outside US past 30 days?: No Exposure to someone with infectious disease in past 14 days?: No Do you have a fever (greater than 100.4 F or 38 C)?: No Have you tested positive for COVID-19?: No Exposed to someone with COVID-19 in past 14 days?: No Do you have a sore throat?: No Do you have a cough?: No Do you have any weakness?: No Do you have any diarrhea?: No Are you experiencing any unusual bleeding?: No Do you have any muscle aches/pain?: No Do you have any abdominal pain?: No Are you experiencing loss of taste or smell?: No Other Medical History Have you received the Flu Vaccine for this season: No Have you received the Pneumonia Vaccine: No Review of Systems Review of Systems Review of systems (narrative): Negative *Cardiovascular Comments: Negative *Gastrointestinal Comments: Negative *Genitourinary Comments: Negative *Musculoskeletal Comments: Negative *Neurologic Comments: Negative Meds Home Medications and Allergies Home Medications ?Medication ?Instructions ?Recorded ?Confirmed ?Type furosemide 20 mg tablet (Lasix) 20 mg PO DAILY PRN edema #14 tabs 05/25/24 04/06/25 Rx colestipol 1 gram tablet 1 g PO BID #60 tabs 10/26/24 04/06/25 Rx blood sugar diagnostic (True #100 strips 01/19/25 03/06/25 Rx Metrix Glucose Test Strip) lancets 28 gauge (TRUEplus Lancets) #100 ea 01/19/25 03/06/25 Rx blood-glucose meter (True Metrix #1 ea 01/20/25 03/06/25 Rx Glucose Meter) carvedilol 6.25 mg tablet 6.25 mg PO BID #60 tabs 01/26/25 04/06/25 Rx sacubitril 24 mg-valsartan 26 mg 1 tab PO BID #60 tabs 01/26/25 04/06/25 Rx tablet (Entresto) cholecalciferol (vitamin D3) 25 25 mcg PO DAILY 02/13/25 04/06/25 History mcg (1,000 unit) tablet ergocalciferol (vitamin D2) 1,250 1,250 mcg PO WEEKLY 02/13/25 04/06/25 History mcg (50,000 unit) capsule glimepiride 2 mg tablet 2 mg PO BID 02/13/25 04/06/25 History levocetirizine 5 mg tablet 5 mg PO DAILY 02/13/25 04/06/25 History pantoprazole 40 mg tablet,delayed 40 mg PO DAILY 02/13/25 04/06/25 History release semaglutide 0.25 mg or 0.5 mg (2 0.5 mg SQ WEEKLY 02/13/25 04/06/25 History mg/3 mL) subcutaneous pen injector (Ozempic) warfarin 3 mg tablet 1.5 mg PO MOWEFR 02/13/25 04/06/25 History dapagliflozin propanediol 10 mg 10 mg PO DAILY #90 tabs 02/20/25 04/06/25 Rx tablet (Farxiga) famotidine 20 mg tablet 20 mg PO DAILY #30 tabs 02/22/25 04/06/25 Rx ferrous sulfate, dried 159 mg (45 See Rx Instructions .Route 03/06/25 04/06/25 Rx mg iron) tablet,extended release .COMPLEX #90 tabs (iron ER) clopidogrel 75 mg tablet 75 mg PO DAILY 30 days #30 tabs 03/17/25 04/06/25 Rx atorvastatin 40 mg tablet 40 mg PO HS 30 days #90 tabs 03/21/25 04/06/25 Rx diphenoxylate-atropine 2.5 1 tab PO Q12H PRN diarrhea #14 tabs 03/28/25 04/06/25 Rx mg-0.025 mg tablet (Lomotil) enoxaparin 120 mg/0.8 mL 120 mg SQ Q12H 04/04/25 04/06/25 History subcutaneous syringe (Lovenox) sacubitril 24 mg-valsartan 26 mg 1 tab PO BID 04/04/25 04/06/25 History tablet (Entresto) warfarin 3 mg tablet See Rx Instructions .Route .COMPLEX 04/04/25 04/06/25 History New Prescriptions to Start Prescriptions: Allergies Allergy/AdvReac Type Severity Reaction Status Date / Time alendronate sodium (From Allergy Intermediate RASH Verified 04/06/25 11:01 Fosamax) metformin Allergy Rash Verified 04/06/25 11:01 lisinopril AdvReac Intermediate Cough Verified 04/06/25 11:01 Exam Data for Last 24 hours Vital signs and Labs for Last 24 Hours: Temp Pulse Resp BP Pulse Ox O2 Del Method 97.5 F L 80 17 118/74 98 Room Air 04/06/25 11:17 04/06/25 11:17 04/06/25 11:17 04/06/25 11:17 04/06/25 11:17 04/06/25 11:17 I & O for Last 24 hours: Intake & Output 04/03/25 04/04/25 04/05/25 04/06/25 23:59 23:59 23:59 23:59 Weight 246 lb *Routine HEENT Exam Head: Present normocephalic Eye: Present EOMI and PERRL ENT: Present mucous membranes moist *Routine Neck Exam Neck: Present supple *Routine Respiratory Exam Respiratory: Present CTA bilaterally *Routine Cardiovascular Exam Cardiovascular: Present RRR *Routine Abdominal Exam Abdominal: Present soft and normoactive bowel sounds; Absent tenderness *Routine Rectal Exam Rectal:: deferred *Routine Genitalia Exam Genitalia:: deferred *Routine Extremities Exam Extremities: Absent cyanosis, clubbing or edema *Routine Skin Exam Skin: Present warm; Absent rash *Routine Neurological Exam Neurological: Present alert and oriented X3 Assessment and Plan *Assessment and plan (1) Diarrhea: Status: Acute Category: Medical Code(s): R19.7 - Diarrhea, unspecified (2) Fecal urgency: Status: Acute Category: Medical Code(s): R15.2 - Fecal urgency (3) Bile acid malabsorption syndrome: Status: Acute Category: Medical Code(s): K90.89 - Other intestinal malabsorption (4) Change in bowel habits: Status: Acute Category: Medical Code(s): R19.4 - Change in bowel habit (5) Personal history of colon polyps, unspecified: Status: Acute Category: Medical Code(s): Z86.0100 - Personal history of colon polyps, unspecified Plan A/P: 1. Diarrhea with fecal urgency, gradual change in bowel habits and bile acid malabsorption syndrome. She also has a history of colon polyps and last colonoscopy 5 years ago is the preprocedural diagnosis. The patient will be anesthetized/sedated using MAC sedation. The patient has been seen and examined. Cardiac and lung assessment prior to the examination is stable. Proceed with planned diagnostic colonoscopy.
--- NOTE | 2025-04-06 12:39 | P.PCN_ITS ---
[facility] Procedure Note Date: 04/06/25 Time: 13:01 Procedure Note:: Colonoscopy Procedure Report: Colonoscopy with cold snare polypectomy and cold biopsies Endoscopist: Darrius Laboy II, MD Referring physician: DAVIN Beavers Date of Procedure: April 06, 2025 Equipment: Olympus 190 variable stiffness pediatric colonoscope Sedation: MAC sedation Indication: Mrs. Thomas is a 74-year-old female who is here for diagnostic colonoscopy secondary to marked diarrhea, urgency and intermittent fecal incontinence. She does have a personal history of colon polyps and her last colonoscopy was with Dr. Jonah Flores M.D. in December 2019 at which time she had a complex lobulated right colon polyp and a large pedunculated polyp at 65 cm. The patient did have cholecystectomy many years ago. She reports no abdominal pain, rectal bleeding, bloating, gassiness or belching. She reports no mucus w ith her bowel movements. She reports no family history of colon cancer. She has lost 15 to 20 pounds. Procedure: Prior to the procedure, a history and physical exam was performed, and patient's medications and allergies were reviewed. The risks, benefits and alternatives of the sedation and procedure were discussed with the patient. All questions were answered and informed consent was obtained. The patient was brought to the procedure room. Patient identification and proposed procedure were verified by the physician and the nurse. The patient was placed in a left lateral decubitus position and the scope was passed under direct vision. Throughout the procedure, the patient's blood pressure, pulse, and oxygen saturations were monitored continuously. The colonoscopy was accomplished without difficulty. The patient tolerated the procedure well. Findings: On digital rectal examination there was normal rectal tone. There were no external hemorrhoids. The colonoscope was introduced through the anal canal to the rectum and advanced to the cecum. The ileocecal valve and appendiceal orifice were identified. The scope was advanced a short distance into the ileum which appeared grossly normal. The scope was then withdrawn into the colon. There were 7 polyps (ascending x 4 (3, 4, 4 and 5 mm), transverse x 2 (3 and 4 mm) and descending x 1 (4 mm)). These were all removed via cold snare polypectomy. Random biopsies were taken from both the right and left colon to rule out microscopic colitis. The remaining cecum, ascending and transverse colon and mucosa were grossly normal. There were scattered diverticuli throughout the descending and sigmoid colon (LEFT colon). The rectum itself was normal. Upon retroflexion within the rectum there were grade 2 internal hemorrhoids. The preparation was excellent throughout with [place] Preparation Score of 9. The cecal time was 12 minutes. Impression: 1. Diminutive colonic polyps x 7 2. Left-sided diverticulosis 3. Grade 2 internal hemorrhoids Plan: I will follow-up the polyp histology and determine whether further surveillance is warranted. I will follow-up the biopsies to rule out microscopic/collagenous colitis. If the biopsies are normal, I would treat the bile acid diarrhea and consider adding alosetron and bulk fiber. If the biopsy showed microscopic colitis, I would recommend initiation of budesonide. She does have bowel control difficulties and if this persist, we may have discussion about sacral neuromodulation as well.
[2025-04-06 13:05] VITALS: BP 101/52; PULSE 68; RESP 16; TEMP 36.4; O2SAT 96
[2025-04-06 13:15] VITALS: BP 104/61; PULSE 64; RESP 16; O2SAT 99
[2025-04-06 13:25] VITALS: BP 114/60; PULSE 65; RESP 16; O2SAT 99
[2025-04-06 13:28] VITALS: BP 131/67; PULSE 66; RESP 16; O2SAT 99
[2025-04-06 13:39] LABS: POC Glucose,Bedside 133 (70-110)
== END 2025-04-06 13:36 | disposition home or self-care (01) ==
PROVIDERS: PCP Family Medicine; Visit Provider Internal Medicine Gastroenterology
PROC: 0DJD8ZZ Inspection of Lower Intestinal Tract, Via Natural or Artificial Opening Endoscopic (ICD-10-PCS; CPT 45378; principal; 2025-04-06 12:00)
DX: R19.7 Diarrhea, unspecified (principal); R15.2 Fecal urgency; R19.4 Change in bowel habit; Z86.0100 Personal history of colon polyps, unspecified; D12.2 Benign neoplasm of ascending colon; D12.4 Benign neoplasm of descending colon; D12.3 Benign neoplasm of transverse colon; K57.30 Diverticulosis of large intestine without perforation or abscess without bleeding; K64.1 Second degree hemorrhoids; E11.9 Type 2 diabetes mellitus without complications
CPT/HCPCS: 45380; 45385; 82962; J7120

== ENCOUNTER 2025-04-12 11:03 | Outpatient (CLI) | payer MEDICARE, SELFPAY ==
[2025-04-12 13:40] LABS: PHA INR Fingerstick 1.7 (0.9-1.1)
== END 2025-04-12 23:59 | disposition home or self-care (01) ==
LOC: ACC 11:04
PROVIDERS: PCP Family Medicine; Visit Provider Family Medicine
DX: Z79.01 Long term (current) use of anticoagulants (principal); Z86.711 Personal history of pulmonary embolism
CPT/HCPCS: 85610; 99211; G0463

== ENCOUNTER 2025-04-19 11:30 | Outpatient (CLI) | payer MEDICARE, SELFPAY ==
[2025-04-19 13:49] LABS: PHA INR Fingerstick 1.7 (0.9-1.1)
== END 2025-04-19 14:07 ==
LOC: ACC 11:31
PROVIDERS: PCP Family Medicine; Visit Provider Family Medicine
DX: I26.99 Other pulmonary embolism without acute cor pulmonale (principal)
CPT/HCPCS: 85610; 99211; G0463

== ENCOUNTER 2025-04-20 11:48 | Outpatient (CLI) | payer MEDICARE, SELFPAY ==
[2025-04-20 19:43] LABS: Alanine Aminotransferase 25 U/L (12-78); Albumin Level 3.7 g/dl (3.5-5.0); Albumin/Globulin Ratio 1.3 (1.1-1.8); Alkaline Phosphatase 111 U/L (38-126); Anion Gap 11.5 mEq/L (5-15); Aspartate Amino Transferase 27 U/L (14-36); Bilirubin,Total 0.5 mg/dl (0.2-1.3); Blood Urea Nitrogen 15 mg/dl (7-17); Calcium 9.3 mg/dl (8.4-10.2); Carbon Dioxide 19 mmol/L (22.0-30.0); Chloride 111 mmol/L (98-107); Estimated Glomerular Filt Rate 44 ml/min (>60); GFR (African American) 53 ML/MIN (>60); Globulin 2.8 g/dL (1.3-3.2); Glucose 104 mg/dl (74-100); Potassium 4.5 mmoL/L (3.5-5.1); Sodium 137 mmol/L (136-145); Total Protein,Serum 6.5 g/dl (6.3-8.2)
[2025-04-20 20:06] LABS: Hemoglobin A1C 6.5 % (4.0-6.0)
--- OUTSIDE RECORDS SUMMARY | 2025-04-21 13:15 | XMS_ITS | Clinical Summary ---
Author Organization [facility] Address [address] [place] [address] Care Team Providers Care Manager Systems Name Role Phone Seema Tapia Primary Care Provider [phone] Allergies Active Allergy Reactions Criticality Noted Date Comments Alendronate Hives,Rash Medium 02/18/2022 Lisinopril Cough Medium 02/18/2022 Metformin Unknown - Patient st ates they do not know rxn details Low 02/18/2022 Medications Aspirin 81 MG capsule 03/01/2021 Active albuterol 108 (90 Base) MCG/ACT inhaler INHALE 1 TO 2 PUFFS BY MOUTH EVERY 4 TO 6 HOURS NEEDED FOR SHORTNES 12/10/2019 Active pantoprazole (Protonix) 40 MG EC tablet TAKE 1 TABLET DAILY. 03/13/2020 Active warfarin (Coumadin) 3 MG tablet TAKE 1 TABLET DAILY. 03/13/2020 Active losartan (Cozaar) 25 MG tablet Take by mouth 1 (one) time each day. 09/09/2021 Active glimepiride (Amaryl) 2 MG tablet Take by mouth 2 (two) times a day. 09/09/2021 Active simvastatin (Zocor) 10 MG tablet 07/18/2021 Active ergocalciferol 1.25 MG (68573 UT) capsule 04/28/2022 Active cholecalciferol (Vitamin D3) 25 MCG (1000 UT) tablet 05/20/2022 Active levocetirizine (Xyzal) 5 MG tablet 06/17/2022 Active True Metrix Blood Glucose Test test strip 08/14/2023 Act chris TRUEplus Lancets 28G misc 08/14/2023 Active furosemide (Lasix) 20 MG tablet Only as needed 05/14/2023 Active Slow Release Iron 45 MG tablet controlled-rele ase 07/26/2024 Active Kerendia 10 MG tablet 07/19/2024 Active Ozempic, 0.25 or 0.5 MG/DOSE, 2 MG/3ML solution pen-injector 07/20/2024 Active Farxiga 10 MG tablet Take 1 tablet (10 mg) by mouth 1 (one) time each day. 05/23/2024 Active Hospital, Clinic, or Other Facility Administered Medication Ordered Dose Route Frequency Start Date End Date Status denosumab (Prolia) injection 60 mgIndications:Osteoporosis, unspecified osteoporosis type, unspecified pathological fracture presence 60 mg SC Once 09/30/2021 Active Active Problems Problem Noted Date Diagnosed Date Chronic kidney disease, stage III (moderate) Proteinuria 03/04/2021 Family History Medical History Relation Name Comments Cardiac disorder Brother 1 Diabetes Brother 2 Hypertension Brother 3 Other cancer Father Other cancer Mother Blood clots Other Lung cancer Sister 1 Breast cancer Sister 2 Relation Name Status Comments Brother 1 Brother 2 Brother 3 Father Mother Other Sister 1 Sister 2 Social History Tobacco Use Types Packs/Day Years Used Date Smoking Tobacco: Never Smokeless Tobacco: Never Tobacco Cessation:Counseling Given: Not Answered Alcohol Use Standard Drinks/Week Comments No 0 (1 standard drink = 0.6 oz pure alcohol) Alcoholic Drinks/day: Denies alcohol consumption Comments Unknown Sex and Gender Information Value Date Recorded Sex Assigned at Not on file Legal Sex Female 7:54 PM EDT Gender Identity Not on file Sexual Orientation Not on file Last Filed Vital Signs Vital Sign Reading Time Taken Comments Blood Pressure 123/67 07/29/2024 9:01 AM EDT Pulse 82 07/29/2024 9:01 AM EDT Temperature 35.6 C (96.1 F) 03/13/2020 9:54 AM EDT Respiratory Rate 12 09/21/2023 11:37 AM EST Oxygen Saturation 98% 07/29/2024 8:58 AM EDT Inhaled Oxygen Concentration - - Weight 118 kg (261 lb) 07/29/2024 8:58 AM EDT Height 165.1 cm (5' 5 ) 03/13/2020 9:54 AM EDT Body Mass Index 43.43 03/13/2020 9:54 AM EDT Plan of Treatment Upcoming Encounters Date Type Department Care Team (Late st Contact Info) Description 04/28/2025 8:20 AM EDT Office Visit [facility] [address] [place] [address] Connie Curry, PRODUCT MARKETING PROGRAMS MANAGER [address] [facility] [address] [place] [address] Health Maintenance Due Date Last Done Comments [facility]-Bone Density Scan 1950 [facility]-Depression Screening 1950 [facility]-Hepatitis C Screening 1950 [facility]-Medicare Annual Wellness (AWV) 1950 [facility]-Infant/Child/Adol SDOH Screenings 1950 Diabetes: Dental Exam 1960 [facility]- SDOH Screenings 1968 [facility]-Adult SDOH Screenings 1968 [facility]-DTaP,Tdap,and Td Vaccine s (1 - Tdap) 1969 [facility]-Pneumococcal Vaccine: 50 + Years (1 of 2 - PCV) 1969 CT Colonography 1995 FIT-DNA 1995 FIT 1995 FOBT 1995 Sigmoidoscopy 1995 [facility]-Breast Cancer Screening 2000 [facility]-Zoster Vaccines (1 of 2) 2000 [facility]-RSV Vaccine: 60+ Years o r (1 - Risk 60-74 years 1-dose series) 2010 [facility]-Diabetes: Hemoglobin A1C 07/03/2020 01/04/2020 [id number] Vaccine ( season) 2024 09/25/2021, 03/29/2021 [facility]-Influenza Vaccine ([place] n Ended) 2025 Colonoscopy 01/09/2030 01/09/2020 [facility]-Colorectal Cancer Screening 01/09/2030 [facility]-Obesity Intervention Completed 024, 09/21/2023 HPV Vaccines Aged Out No longer eligi ble based on patient's age to complete this topic [facility]-HIB Vaccines Aged Out No longer e ligible based on patient's age to complete this topic [facility]-Hepatitis A Vaccines Aged Out No longer eligible based on patient's age to complete this topic [facility]-IPV Vaccines Aged Out No longer e ligible based on patient's age to complete this topic [facility]-Rotavirus Vaccines Aged Out No lo nger eligible based on patient's age to complete this topic Procedures Procedure Name Priority Date/Time Associated Diagnosis Comments COLONOSCOPY 01/09/2020 HEMOGLOBIN A1C Routine 01/04/2020 1:12 AM EST from Last 3 Months or Most Recently Relevant to Health Maintenance Results * COLONOSCOPY (01/09/2020) Anatomical Region Laterality Modality Endoscopy Narrative 01/09/2020 Ordered by an unspecified provider. [facility] Provider GI PROCEDURE ORDERABLES F inal Result * Hemoglobin A1c (01/04/2020 1:12 AM EST) Hemoglobin A1c 5.2 4.7 - 6.0 % SUNQUEST Comment: Glycohemoglobin Reference Range, 0 years and up: 4.7 to 6.0% . HA1C Interpretive Data: Diagnosis of Diabetes: Diabetic > or = 6.5% Pre-diabetic 5.7 to 6.4% Non-diabetic < or = 5.6% . Glycemic Targets for Type I and Type II Diabetics: Non- Adults <7.0% Adults <6.0% Children and Adolescents <7.5% . Source: [place] Diabetes Association. Standards of medical care in diabetes, 2017. Diabetes Care.2017:40 (suppl 1):S1-S135. . HbA1c assay performed by an ion-exchange chromatography method that is certified traceable to the DCCT. 01/04/2020 1:12 AM EST 01/04/2020 1:27 AM EST Stephanie Norris MD LAB BLOOD ORDERABLES Final R esult SUNQUEST from Last 3 Months or Most Recently Relevant to Health Maintenance Insurance [employer] MEDICARE Care Teams Manager Systems Relationship Specialty Start Date End Date Seema Tapia PA [address] [place] [address] PCP - General 03/29/21
== END 2025-04-20 23:59 | disposition home or self-care (01) ==
LOC: LAB.DROPOF 04-21 13:11
PROVIDERS: PCP Family Medicine; Visit Provider Family Medicine
DX: R19.7 Diarrhea, unspecified (principal); E11.9 Type 2 diabetes mellitus without complications
CPT/HCPCS: 80053; 83036

== ENCOUNTER 2025-05-01 08:50 | Outpatient (CLI) | payer MEDICARE, SELFPAY ==
--- OUTSIDE RECORDS SUMMARY | 2025-05-01 08:55 | XMS_ITS | Encounter Summary ---
Author Organization [facility] Address [address] [place] [address] Care Team Providers Care Bag Checker Name Role Phone Seema Tapia Primary Care Provider [phone] Encounter Details Date Type Department Care Team (Latest Contact Info) Description 04/28/2025 Travel Social History Tobacco Use Types Packs/Day Years Used Date Smoking Tobacco: Never Smokeless Tobacco: Never Alcohol Use Standard Drinks/Week Comments No 0 (1 standard drink = 0.6 oz pure alcohol) Alcoholic Drinks/day: Denies alcohol consumption Comments Unknown Sex and Gender Information Value Date Recorded Sex Assigned at Not on file Legal Sex Female 7:54 PM EDT Gender Identity Not on file Sexual Orientation Not on file documented as of this encounter Plan of Treatment Not on file documented as of this encounter Visit Diagnoses Not on filedocumented in this encounter Additional Health Concerns Assessment Noted Time A fall risk assessment has been complete d for the patient 09/21/2023 11:42 AM EST A Body Mass Index follow-up plan has been documented for the patient 07/29/2024 9:31 AM EDT documented as of this encounter Care Teams Bag Checker Relationship Specialty Start Date End Date Seema Tapia PA [address] [place] [address] PCP - General 03/29/21 documented as of this encounter
--- OUTSIDE RECORDS SUMMARY | 2025-05-01 08:55 | XMS_ITS | Clinical Summary ---
Author Organization [facility] Address [address] [place] [address] Care Team Providers Care Manager Technical Sales Name Role Phone Seema Tapia Primary Care Provider [phone] Allergies Active Allergy Reactions Criticality Noted Date [...] MG tablet 07/18/2021 Active ergocalciferol 1.25 MG (62542 UT) capsule 04/28/2022 Active cholecalciferol (Vitamin D3) [...] kidney disease, stage III (moderate) Proteinuria 03/04/2021 Encounters Date Type Department Care Team Description 04/28/2025 Travel from Last 3 Months Family History Medical History Relation Name Comments [...] 03/13/2020 9:54 AM EDT Plan of Treatment Health Maintenance Due Date Last Done Comments [facility]-Bone Density Scan 1950 [facility]-Depression Screening 1950 [facility]-Hepatitis C Screening 1950 [facility]-Medicare Annual Wellness (AWV) 1950 [facility]-/Child/Adol SDOH Screenings 1950 Diabetes: Dental Exam 1960 [...] series) 2010 [facility]-Diabetes: Hemoglobin A1C 07/03/2020 01/04/2020 [id number] Vaccine ( season) 2024 09/25/2021, 03/29/2021 [facility]-Influenza [...] Narrative 01/09/2020 Ordered by an unspecified provider. Historical Provider GI PROCEDURE ORDERABLES F inal Result [...] <6.0% Children and Adolescents <7.5% . Source: [place] Diabetes [employer]. Standards of medical care in diabetes, 2017. Diabetes Care.2017:40 (suppl 1):S1-S135. . HbA1c assay performed by an ion-exchange chromatography method that is certified traceable to the DCCT. 01/04/2020 1:12 AM EST 01/04/2020 1:27 AM EST Stephanie Norris MD LAB BLOOD ORDERABLES Final R esult SUNQUEST from Last 3 Months or Most Recently Relevant to Health Maintenance Insurance [facility] MEDICARE Care Teams Manager Technical Sales Relationship Specialty Start Date End Date Seema Tapia PA [address] [place] [address] PCP - General 03/29/21
--- NOTE | 2025-05-01 09:00 | XR_ITS ---
FINAL REPORT TECHNIQUE: Bone densitometry calculations of the lumbar spine and bilateral hips were obtained. CLINICAL HISTORY: SCREENING COMPARISON: 03/26/2020 FINDINGS: Using L1-4, the bone mineral density of the spine is 1.104 g/cm2, corresponding to T-score of 0.5. Using the left hip, the bone mineral density of the femoral neck is 0.730 g/cm2, corresponding to a T-score of -1.1. Using the right hip, the bone mineral density of the femoral neck is 0.658 g/cm?, corresponding to a T-score of -1.7. NOTE: T-score: Standard deviation compared with peak bone mass of young adult mean. *Following the recommendations of the International Society of Bone densitometry, classification of hip BMD is based on the lower of two T-scores; total hip or femoral neck. IMPRESSION: Diminished bone mineral density of the bilateral hips consistent with osteopenia. Normal bone mineral density of the lumbar spine, although this may be secondary to bony sclerosis from degenerative change. Reviewed, Interpreted and Dictated by Calixto Herrera MD Transcribed by Kelly Chappell Authenticated and [facility]
== END 2025-05-01 23:59 | disposition home or self-care (01) ==
LOC: RAD 08:51
PROVIDERS: PCP Family Medicine; Visit Provider Nurse Practitioner
DX: M85.852 Other specified disorders of bone density and structure, left thigh (principal); M85.851 Other specified disorders of bone density and structure, right thigh; N18.32 Chronic kidney disease, stage 3b; Z13.9 Encounter for screening, unspecified
CPT/HCPCS: 77080

== ENCOUNTER 2025-05-04 11:23 | Outpatient (CLI) | payer MEDICARE, SELFPAY ==
--- OUTSIDE RECORDS SUMMARY | 2025-05-04 11:26 | XMS_ITS | Clinical Summary ---
Author Organization [facility] Address [address] [place] [address] Care Team Providers Care Santa'S Helper Name Role Phone Seema Tapia Primary Care Provider [phone] Allergies Active Allergy Reactions Criticality Noted Date [...] MG tablet 07/18/2021 Active ergocalciferol 1.25 MG (36909 UT) capsule 04/28/2022 Active cholecalciferol (Vitamin D3) [...] series) 2010 [facility]-Diabetes: Hemoglobin A1C 07/03/2020 01/04/2020 [id number] Vaccine ( season) 2024 09/25/2021, 03/29/2021 [facility]-Influenza [...] <6.0% Children and Adolescents <7.5% . Source: [place] Diabetes Association. Standards of medical care in diabetes, 2017. Diabetes Care.2017:40 (suppl 1):S1-S135. . HbA1c assay performed by an ion-exchange chromatography method that is certified traceable to the DCCT. 01/04/2020 1:12 AM EST 01/04/2020 1:27 AM EST Stephanie oNrris MD LAB BLOOD ORDERABLES Final R esult SUNQUEST from Last 3 Months or Most Recently Relevant to Health Maintenance Insurance [facility] MEDICARE Care Teams Santa'S Helper Relationship Specialty Start Date End Date Seema Tapia PA [address] [place] [address] PCP - General 03/29/21
--- OUTSIDE RECORDS SUMMARY | 2025-05-04 11:26 | XMS_ITS | Encounter Summary ---
Author Organization [facility] Address [address] [place] [address] Care Team Providers Care Title I Teacher Name Role Phone Seema Tapia Primary Care Provider [phone] Encounter Details Date Type Department Care Team [...] documented as of this encounter Care Teams Title I Teacher Relationship Specialty Start Date End Date Seema Tapia PA [address] [place] [address] PCP - General 03/29/21 documented as of this encounter
[2025-05-04 12:08] LABS: PHA INR Fingerstick 1.4 (0.9-1.1)
== END 2025-05-04 12:10 ==
LOC: ACC 11:23
PROVIDERS: PCP Family Medicine; Visit Provider Family Medicine
DX: I26.99 Other pulmonary embolism without acute cor pulmonale (principal)
CPT/HCPCS: 85610; 99211; G0463

== ENCOUNTER 2025-05-09 11:30 | Outpatient (CLI) | payer MEDICARE, SELFPAY ==
--- OUTSIDE RECORDS SUMMARY | 2025-05-09 11:33 | XMS_ITS | Clinical Summary ---
Author Organization [facility] Address [address] [place] [address] Care Team Providers Care Epidemiology Internship Name Role Phone Seema Tapia Primary Care Provider [phone] Allergies Active Allergy Reactions Criticality Noted Date [...] MG tablet 07/18/2021 Active ergocalciferol 1.25 MG (37491 UT) capsule 04/28/2022 Active cholecalciferol (Vitamin D3) [...] series) 2010 [facility]-Diabetes: Hemoglobin A1C 07/03/2020 01/04/2020 [id number] Vaccine ( season) 2024 09/25/2021, 03/29/2021 [facility]-Influenza [...] <6.0% Children and Adolescents <7.5% . Source: [place] [employer]. Standards of medical care in diabetes, 2017. Diabetes Care.2017:40 (suppl 1):S1-S135. . HbA1c assay performed by an ion-exchange chromatography method that is certified traceable to the DCCT. 01/04/2020 1:12 AM EST 01/04/2020 1:27 AM EST Stephanie Norris MD LAB BLOOD ORDERABLES Final R esult SUNQUEST from Last 3 Months or Most Recently Relevant to Health Maintenance Insurance [facility] MEDICARE Care Teams Epidemiology Internship Relationship Specialty Start Date End Date Seema Tapia PA [address] [place] [address] PCP - General 03/29/21
--- OUTSIDE RECORDS SUMMARY | 2025-05-09 11:33 | XMS_ITS | Encounter Summary ---
Author Organization [facility] Address [address] [place] [address] Care Team Providers Care Home School Coordinator Name Role Phone Seema Tapia Primary Care Provider [phone] Encounter Details Date Type Department Care Team [...] documented as of this encounter Care Teams Home School Coordinator Relationship Specialty Start Date End Date Seema Tapia PA [address] [place] [address] PCP - General 03/29/21 documented as of this encounter
[2025-05-09 14:21] LABS: PHA INR Fingerstick 2.4 (0.9-1.1)
== END 2025-05-09 14:27 ==
LOC: ACC 11:31
PROVIDERS: PCP Family Medicine; Visit Provider Family Medicine
DX: I26.99 Other pulmonary embolism without acute cor pulmonale (principal)
CPT/HCPCS: 85610; 99211; G0463

== ENCOUNTER 2025-05-24 11:25 | Outpatient (CLI) | payer MEDICARE, SELFPAY ==
--- OUTSIDE RECORDS SUMMARY | 2025-05-24 11:27 | XMS_ITS | Encounter Summary ---
Author Organization [facility] Address [address] [place] [address] Care Team Providers Care Carpet Layer Name Role Phone Seema Tapia Primary Care Provider [phone] Encounter Details Date Type Department Care Team [...] documented as of this encounter Care Teams Carpet Layer Relationship Specialty Start Date End Date Seema Tapia PA [address] [place] [address] PCP - General 03/29/21 documented as of this encounter
--- OUTSIDE RECORDS SUMMARY | 2025-05-24 11:27 | XMS_ITS | Clinical Summary ---
Author Organization [facility] Address [address] [place] [address] Care Team Providers Care Xerox Machine Mechanic Name Role Phone Seema Tapia Primary Care Provider [phone] Allergies Active Allergy Reactions Criticality Noted Date [...] MG tablet 07/18/2021 Active ergocalciferol 1.25 MG (81394 UT) capsule 04/28/2022 Active cholecalciferol (Vitamin D3) [...] series) 2010 [facility]-Diabetes: Hemoglobin A1C 07/03/2020 01/04/2020 [id number] Vaccine ( season) 2024 09/25/2021, 03/29/2021 [facility]-Influenza Vaccine (#1) 2025 Colonoscopy 01/09/2030 01/09/2020 [facility]-Colorectal Cancer Screening [...] <6.0% Children and Adolescents <7.5% . Source: [place] [employer]. Standards of medical care in diabetes, 2017. Diabetes Care.2017:40 (suppl 1):S1-S135. . HbA1c assay performed by an ion-exchange chromatography method that is certified traceable to the DCCT. 01/04/2020 1:12 AM EST 01/04/2020 1:27 AM EST Stephanie Norris MD LAB BLOOD ORDERABLES Final R esult SUNQUEST from Last 3 Months or Most Recently Relevant to Health Maintenance [place] [id number] Care Teams Xerox Machine Mechanic Relationship Specialty Start Date End Date Seema Tapia PA [address] [place] [address] PCP - General 03/29/21
[2025-05-24 15:01] LABS: PHA INR Fingerstick 2.7 (0.9-1.1)
== END 2025-05-24 15:03 ==
LOC: ACC 11:25
PROVIDERS: PCP Family Medicine; Visit Provider Family Medicine
DX: I26.99 Other pulmonary embolism without acute cor pulmonale (principal)
CPT/HCPCS: 85610; 99211; G0463

== ENCOUNTER 2025-05-31 11:17 | Outpatient (CLI) | payer MEDICARE, SELFPAY ==
--- OUTSIDE RECORDS SUMMARY | 2025-05-31 11:20 | XMS_ITS | Encounter Summary ---
Author Organization [facility] Address [address] [place] [address] Care Team Providers Care Sky Line Yarder Name Role Phone Seema Tapia Primary Care Provider [phone] Encounter Details Date Type Department Care Team [...] documented as of this encounter Care Teams Sky Line Yarder Relationship Specialty Start Date End Date Seema Tapia PA [address] [place] [address] PCP - General 03/29/21 documented as of this encounter
--- OUTSIDE RECORDS SUMMARY | 2025-05-31 11:21 | XMS_ITS | Clinical Summary ---
Author Organization [facility] Address [address] [place] [address] Care Team Providers Care Product Support Manager Name Role Phone Seema Tapia Primary Care Provider [phone] Allergies Active Allergy Reactions Criticality Noted Date [...] MG tablet 07/18/2021 Active ergocalciferol 1.25 MG (90952 UT) capsule 04/28/2022 Active cholecalciferol (Vitamin D3) [...] series) 2010 [facility]-Diabetes: Hemoglobin A1C 07/03/2020 01/04/2020 [id number] Vaccine ( season) 2024 09/25/2021, 03/29/2021 [facility]-Influenza [...] Relevant to Health Maintenance Insurance [employer] Care Teams Product Support Manager Relationship Specialty Start Date End Date Seema Tapia PA [address] [place] [address] PCP - General 03/29/21
[2025-05-31 11:48] LABS: PHA INR Fingerstick 4.7 (0.9-1.1)
== END 2025-05-31 11:50 ==
LOC: ACC 11:17
PROVIDERS: PCP Family Medicine; Visit Provider Family Medicine
DX: I26.99 Other pulmonary embolism without acute cor pulmonale (principal)
CPT/HCPCS: 85610; 99211; G0463

== ENCOUNTER 2025-07-10 12:03 | Outpatient (CLI) | payer MEDICARE, SELFPAY ==
--- NOTE | 2025-07-10 12:07 | XR_ITS ---
FINAL REPORT CLINICAL HISTORY: burising to knee, pain 1 month FINDINGS: AP, lateral and oblique views of the right knee were obtained. There is no prior exam for comparison. There is no acute osseous abnormality of the right knee. There is degenerative joint disease, most pronounced at the patellofemoral joint. Several posterior loose bodies are present. The soft tissues are normal. There is a small joint effusion. IMPRESSION: Degenerative joint disease without acute bony abnormality. Reviewed, Interpreted and Dictated by Kelin Gonsales MD Transcribed by Yamila Fernandez Authenticated and [facility]
--- OUTSIDE RECORDS SUMMARY | 2025-07-10 12:27 | XMS_ITS | Clinical Summary ---
Author Organization [facility] Address [address] [place] [address] Care Team Providers Care Stone Layout Marker Name Role Phone Seema Tapia Primary Care Provider [phone] Allergies Active Allergy Reactions Criticality Noted Date [...] MG tablet 07/18/2021 Active ergocalciferol 1.25 MG (20058 UT) capsule 04/28/2022 Active cholecalciferol (Vitamin D3) [...] 1995 FIT 1995 FOBT 1995 Sigmoidoscopy 1995 [facility]-Zoster Vaccines (1 of 2) 2000 [facility]-Diabetes: Hemoglobin A1C 07/03/2020 01/04/2020 [id number] Vaccine (3 - season) 2024 09/25/2021, 03/29/2021 [facility]-RSV Vaccine: 60+ Years o r (1 - 1-dose 75+ series) 2025 [facility]-Influenza Vaccine (#1) 2025 Colonoscopy 01/09/2030 01/09/2020 [...] Narrative 01/09/2020 Ordered by an unspecified provider. us Historical Provider GI PROCEDURE ORDERABLES Mesha l Result * Hemoglobin A1c (01/04/2020 1:12 AM [...] <6.0% Children and Adolescents <7.5% . Source: [place] [employer]. Standards of medical care in diabetes, 2017. Diabetes Care.2017:40 (suppl 1):S1-S135. . HbA1c assay performed by an ion-exchange chromatography method that is certified traceable to the DCCT. 01/04/2020 1:12 AM EST 01/04/2020 1:27 AM EST Stephanie Norris MD LAB BLOOD ORDERABLES Final R esult SUNQUEST from Last 3 Months or Most Recently Relevant to Health Maintenance Insurance [address], [place] [id number] [facility] MEDICARE Care Teams Stone Layout Marker Relationship Specialty Start Date End Date Seema Tapia PA [address] [place] [address] PCP - General 03/29/21
[2025-07-10 14:06] LABS: Prothrombin Time 51.3 seconds (10.1-12.5)
[2025-07-10 14:07] LABS: INR 5.22 (0.9-1.1)
[2025-07-10 15:46] LABS: PHA INR Fingerstick 4.6 (0.9-1.1)
[2025-07-10 16:19] LABS: Hematocrit 40.8 % (37.0-47.0); Hemoglobin 12.7 g/dL (12.2-16.2); Immature Granulocytes % 0.3 %; Mean Corpuscular HGB Conc 31.1 g/dL (31.8-35.4); Mean Corpuscular Hemoglobin 28.5 pg (27.0-31.2); Mean Corpuscular Volume 91.7 fl (81-99); Nucleated Red Blood Cells % 0 %; Platelet Count 402 K/mm3 (142-424); Red Blood Count 4.45 M/mm3 (4.20-5.40); Red Cell Distribution Width-SD 44.3 fL; White Blood Count 7.7 K/mm3 (4.8-10.8)
[2025-07-10 18:03] LABS: Chloride 115 mmol/L (98-107); Sodium 141 mmol/L (136-145)
[2025-07-10 18:04] LABS: Potassium 4.2 mmoL/L (3.5-5.1)
[2025-07-10 18:07] LABS: Anion Gap 16.2 mEq/L (5-15); Blood Urea Nitrogen 21 mg/dl (7-17); Calcium 8.7 mg/dl (8.4-10.2); Carbon Dioxide 14 mmol/L (22.0-30.0); Creatinine,Serum 1.40 mg/dl (0.52-1.04); Estimated Glomerular Filt Rate 37 ml/min (>60); GFR (African American) 44 ML/MIN (>60); Glucose 117 mg/dl (74-100)
== END 2025-07-10 15:58 ==
PROVIDERS: PCP Family Medicine; Visit Provider Family Medicine
DX: M17.11 Unilateral primary osteoarthritis, right knee (principal); E86.0 Dehydration; E78.5 Hyperlipidemia, unspecified; I26.99 Other pulmonary embolism without acute cor pulmonale; Z79.01 Long term (current) use of anticoagulants
CPT/HCPCS: 36415; 73562; 80048; 85025; 85610; 99211; G0463

== ENCOUNTER 2025-07-25 14:28 | Outpatient (CLI) | payer MEDICARE, SELFPAY ==
--- OUTSIDE RECORDS SUMMARY | 2025-07-25 14:32 | XMS_ITS | Clinical Summary ---
Author Organization [facility] Address [address] [place] [address] Care Team Providers Care Cancer Registrar Name Role Phone Seema Tapia Primary Care Provider [phone] Allergies Active Allergy Reactions Criticality Noted Date [...] MG tablet 07/18/2021 Active ergocalciferol 1.25 MG (63944 UT) capsule 04/28/2022 Active cholecalciferol (Vitamin D3) [...] 2) 2000 [facility]-Diabetes: Hemoglobin A1C 07/03/2020 01/04/2020 [facility]-RSV Vaccine: 60+ Years o r (1 - 1-dose 75+ series) 2025 [id number] Vaccine (3 - 2024- season) 2025 09/25/2021, 03/29/2021 [facility]-Influenza Vaccine (#1) 2025 Colonoscopy [...] <6.0% Children and Adolescents <7.5% . Source: [place] [employer]. Standards of medical care in diabetes, 2017. Diabetes Care.2017:40 (suppl 1):S1-S135. . HbA1c assay performed by an ion-exchange chromatography method that is certified traceable to the DCCT. 01/04/2020 1:12 AM EST 01/04/2020 1:27 AM EST Stephanie Norris MD LAB BLOOD ORDERABLES Final R esult SUNQUEST from Last 3 Months or Most Recently Relevant to Health Maintenance Insurance [facility] MEDICARE Care Teams Cancer Registrar Relationship Specialty Start Date End Date Seema Tapia PA [address] [place] [address] PCP - General 03/29/21
[2025-07-25 15:38] LABS: Hematocrit 44.8 % (37.0-47.0); Hemoglobin 14.6 g/dL (12.2-16.2); Immature Granulocytes % 0.4 %; Mean Corpuscular HGB Conc 32.6 g/dL (31.8-35.4); Mean Corpuscular Hemoglobin 29.6 pg (27.0-31.2); Mean Corpuscular Volume 90.9 fl (81-99); Nucleated Red Blood Cells % 0 %; Platelet Count 353 K/mm3 (142-424); Red Blood Count 4.93 M/mm3 (4.20-5.40); Red Cell Distribution Width-SD 45.8 fL; White Blood Count 9.3 K/mm3 (4.8-10.8)
[2025-07-25 15:44] LABS: INR 1.34 (0.9-1.1); Prothrombin Time 14.6 seconds (10.1-12.5)
[2025-07-25 15:56] LABS: Albumin Level 3.7 g/dl (3.5-5.0); Chloride 111 mmol/L (98-107); Potassium 4.3 mmoL/L (3.5-5.1); Sodium 141 mmol/L (136-145)
[2025-07-25 15:58] LABS: Bilirubin,Unconjugated 0.4 mg/dL (0.0-1.1); Blood Urea Nitrogen 18 mg/dl (7-17); Creatinine,Serum 1.20 mg/dl (0.52-1.04); Estimated Glomerular Filt Rate 44 ml/min (>60); GFR (African American) 53 ML/MIN (>60)
[2025-07-25 15:59] LABS: Alanine Aminotransferase 28 U/L (12-78); Alkaline Phosphatase 127 U/L (38-126); Anion Gap 17.3 mEq/L (5-15); Aspartate Amino Transferase 23 U/L (14-36); Bilirubin,Direct 0.2 mg/dl (0.0-0.4); Bilirubin,Indirect 0.4 mg/dL (0.0-0.9); Bilirubin,Total 0.6 mg/dl (0.2-1.3); Calcium 9.5 mg/dl (8.4-10.2); Carbon Dioxide 17 mmol/L (22.0-30.0); Cholesterol 144 mg/dl (140-200); Glucose 127 mg/dl (74-100); HDL Cholesterol 40 mg/dl (40-60); Magnesium 1.5 mg/dl (1.6-2.3); Total Protein,Serum 6.2 g/dl (6.3-8.2); Triglycerides 133 mg/dl (30-150)
[2025-07-25 16:14] LABS: Free T4 (Free Thyroxine) 1.56 ng/dl (0.78-2.19)
[2025-07-25 16:28] LABS: Thyroid Stimulating Hormone 1.24 uIU/mL (0.465-4.68)
== END 2025-07-25 23:59 | disposition home or self-care (01) ==
LOC: LAB 14:29
PROVIDERS: PCP Family Medicine; Visit Provider Nurse Practitioner
DX: I25.10 Atherosclerotic heart disease of native coronary artery without angina pectoris (principal); I11.0 Hypertensive heart disease with heart failure; I50.20 Unspecified systolic (congestive) heart failure; E78.5 Hyperlipidemia, unspecified
CPT/HCPCS: 36415; 80048; 80061; 80076; 83735; 84439; 84443; 85025; 85610

== ENCOUNTER 2025-08-11 11:09 | Outpatient (CLI) | payer MEDICARE, SELFPAY ==
--- OUTSIDE RECORDS SUMMARY | 2025-08-11 11:12 | XMS_ITS | Clinical Summary ---
Author Organization [facility] Address [address] [place] [address] Care Team Providers Care Blade Operator Name Role Phone Seema Tapia Primary Care Provider [phone] Allergies Active Allergy Reactions Criticality Noted Date [...] MG tablet 07/18/2021 Active ergocalciferol 1.25 MG (24571 UT) capsule 04/28/2022 Active cholecalciferol (Vitamin D3) [...] r (1 - 1-dose 75+ series) 2025 [id number] Vaccine (3 - 2024- season) 2025 09/25/2021, [...] <6.0% Children and Adolescents <7.5% . Source: [place] [employer]. Standards of medical care in diabetes, 2017. Diabetes Care.2017:40 (suppl 1):S1-S135. . HbA1c assay performed by an ion-exchange chromatography method that is certified traceable to the DCCT. 01/04/2020 1:12 AM EST 01/04/2020 1:27 AM EST Stephanie Norris MD LAB BLOOD ORDERABLES Final R esult SUNQUEST from Last 3 Months or Most Recently Relevant to Health Maintenance Insurance [facility] MEDICARE Care Teams Blade Operator Relationship Specialty Start Date End Date Seema Tapia PA [address] [place] [address] PCP - General 03/29/21
--- NOTE | 2025-08-11 11:15 | CA_ITS ---
APPROVED REPORT EXAM: Comprehensive 2D, Doppler, and color-flow Echocardiogram Lead Machinist: Yady Young RT(R) Ht: 5 ft 5 in Wt: 235lbs BSA: 2.12 BP: 131/86 mmHg Indications: HFrEF, 3 cardiac stents 01/2025 2D Dimensions LA Volume 22.90 mL LA Volume Index 10.80 mL/m2 (M/F) 16-34 EF AP4 40.90 % GL Strain -12.5 % M-Mode Dimensions RVDd 2.61 cm (0.9-2.6) LA Diam 3.79 cm (1.9-4.0) LVDd 3.86 cm (3.5-5.7) LVDs 2.89 cm (3.5-5.7) IVSd 0.72 cm (0.6-1.1) PWd 0.84 cm (0.6-1.1) EF (Teich) 50.40% FS 25.10% EDV (Teich) 64.30 mL ESV (Teich) 31.90 mL LV Diastology E Decel Time 287 (160-240 msec) E/A Ratio 0.6 Mitral Valve MV E Max Roger. 55.0 (40-130 cm/s) MV A Velocity 88.0 (40-130 cm/s) E/A Ratio 0.63 MV PHT 84.0 ms Left Ventricle The left ventricle is normal size. Left ventricular systolic function is mildly reduced. There is increased left ventricular wall thickness. There is mild global hypokinesis present. Diastolic function is indeterminate. LVEF is 45% Right Ventricle The right ventricle is normal size. The right ventricular systolic function is normal. Atria The left atrium is mildly dilated. The right atrium is mildly dilated. There is no color Doppler evidence of interatrial shunt. Aortic Valve The aortic valve is mildly thickened. There is no hemodynamically significant aortic valvular stenosis. Mild aortic regurgitation is present. Mitral Valve The mitral valve is normal in structure. No evidence of mitral valve stenosis. Trace mitral regurgitation is present. Tricuspid Valve The tricuspid valve leaflets are thin and pliable. Trace tricuspid regurgitation. There is insufficient TR jet to estimate RVSP. Pulmonic Valve The pulmonary valve is grossly normal in structure. Mild pulmonic valve regurgitation is present. Great Vessels The aortic root is normal in size. IVC is normal in size and collapses >50% with inspiration. Pericardium There is no pericardial effusion. Other Information Study Quality: Technically Difficult Conclusion Normal biventricular systolic function. Mild biatrial dilation. Mild AI, mild PI. Electronically signed by : Margot Ricardo MD 08/14/2025 13:09:20
[2025-08-11 13:12] LABS: INR 4.61 (0.9-1.1)
[2025-08-11 13:44] LABS: Prothrombin Time 45.7 seconds (10.1-12.5)
[2025-08-11 15:49] LABS: PHA INR Fingerstick 4.1 (0.9-1.1)
== END 2025-08-11 15:54 ==
PROVIDERS: PCP Family Medicine; Visit Provider Nurse Practitioner
DX: I08.8 Other rheumatic multiple valve diseases (principal); I50.20 Unspecified systolic (congestive) heart failure; I25.10 Atherosclerotic heart disease of native coronary artery without angina pectoris; I26.99 Other pulmonary embolism without acute cor pulmonale; Z95.5 Presence of coronary angioplasty implant and graft
CPT/HCPCS: 36415; 85610; 93306; 99211; G0463